=== PATIENT | male | born 1945 | race Caucasian/White ===

== ENCOUNTER 2017-10-30 23:34 | Inpatient (IN) | payer MEDICARE ==
[~2017-10-30] VITALS: Ht 188 cm; Wt 156.1 kg
[2017-10-30] MEDS ORDERED: ACETAMINOPHEN 1000 MG/100 ML IV STA (23:41)
[2017-10-30] MEDS ORDERED: CEFTRIAXONE SOD 1 GM VIAL IV STA (23:41)
[2017-10-30] MEDS ORDERED: SODIUM CHLORIDE 0.9% 1000ML 1,000 ML IV SCH (23:45)
[2017-10-30] MEDS ORDERED: SODIUM CHLORIDE 0.9% 1000ML 1,000 ML IV ONE (23:45)
[2017-10-31 00:09] LABS: INR 1.17; PROTHROMBIN TIME 15.5 seconds (11.9-14.5)
[2017-10-31 00:10] LABS: BASOPHILS % 0.2 % (0.0-1.0); HEMATOCRIT 37.4 % (38.2-49.6); HEMOGLOBIN 10.9 g/dL (14.0-18.0); LYMPHOCYTES # (AUTO) 0.2 (1.0-3.2); LYMPHOCYTES % 0.9 % (18.0-39.1); MEAN CORPUSCULAR HEMOGLOBIN 20.1 pg (28-32); MEAN CORPUSCULAR HGB CONC 29.1 g/dL (31-35); MONOCYTES # (AUTO) 0.4 (0.2-0.8); MONOCYTES % 1.7 % (4.4-11.3); NEUTROPHILS # (AUTO) 21.5 (2.1-6.9); NEUTROPHILS % 96.6 % (38.7-80.0); PLATELET COUNT 355 x10e3/uL (140-360); RED BLOOD COUNT 5.42 x10e6/uL (4.3-5.7); RED CELL DISTRIBUTION WIDTH 21.2 % (11.7-14.4)
[2017-10-31 00:14] LABS: BILIRUBIN,URINE NEGATIVE (NEGATIVE); KETONES,URINE NEGATIVE (NEGATIVE); LEUKOCYTE ESTERASE ,URINE TRACE (NEGATIVE); URINE UROBILINOGEN 1 mg/dL (0.2 - 1)
[2017-10-31 00:15] LABS: CLARITY,URINE SL CLOUDY (CLEAR); COLOR,URINE YELLOW (YELLOW); NITRITE,URINE POSITIVE (NEGATIVE); PROTEIN,URINE DIPSTICK 1+ (NEGATIVE)
[2017-10-31 00:19] LABS: ALANINE AMINOTRANSFERASE 289 IU/L (0-55); ALBUMIN 3.2 g/dL (3.5-5.0); ALBUMIN/GLOBULIN RATIO 0.6 (0.8-2.0); ALKALINE PHOSPHATASE 172 IU/L (40-150); ANION GAP 14.8 mmol/L (8-16); BLOOD UREA NITROGEN 11 mg/dL (7-26); BUN/CREATININE RATIO 12 (6-25); CALCIUM 9.1 mg/dL (8.4-10.2); CARBON DIOXIDE 23 mmol/L (22-29); CHLORIDE 104 mmol/L (98-107); CREATINE KINASE 94 IU/L (30-200); EST GLOMERULAR FILTRATION RATE > 60 ML/MIN (60-); GLUCOSE 197 mg/dL (74-118); POTASSIUM 3.8 mmol/L (3.5-5.1); SODIUM 138 mmol/L (136-145)
[2017-10-31 00:25] LABS: BACTERIA,URINE MANY /HPF; EPITHELIAL CELLS,URINE RARE /LPF
[2017-10-31 00:27] LABS: TROPONIN I 0.011 ng/mL (0-0.300)
--- NOTE | 2017-10-31 00:37 | Diagnostic Imaging Report ---
CHEST SINGLE (PORTABLE), 10/30/2017 11:41 PM Technique: CHEST SINGLE (PORTABLE) Comparison: None available. Clinical history: Fever Findings: Limited by portable technique and motion artifact. Slightly prominent cardiomediastinal silhouette, accentuated by technique. No consolidation, effusion or pneumothorax. Impression: Limited by portable technique and motion artifact. No definite acute abnormality. If there is ongoing clinical concern, consider repeat. Signed by: Dr Gladis Puentes MD on 10/31/2017 12:34 AM
[2017-10-31] MEDS ORDERED: METRONIDAZOLE 500MG/NS 100ML 100 ML IV STA (00:38)
[2017-10-31 00:51] LABS: AMYLASE 313 U/L (25-125); LIPASE 628 U/L (8-78)
[2017-10-31] MEDS ORDERED: PRADAXA150 MG PO (01:47)
[2017-10-31] MEDS ORDERED: MIRALAX17 GM PO (01:47)
[2017-10-31] MEDS ORDERED: PRENATAL LOW I1 EACH PO (01:48)
[2017-10-31] MEDS ORDERED: ONDANSETRON HCL INJ 2 MG/ML VIAL IV STA (01:56)
[2017-10-31] MEDS ORDERED: MORPHINE SULFATE 5 MG/ML VIAL IV ONE (02:00)
[2017-10-31] MEDS ORDERED: DIATRIZOATE MEGL/DIATRIZOA SOD 30 ML BTL PO ONE (02:08)
--- NOTE | 2017-10-31 02:26 | Diagnostic Imaging Report ---
EXAM: US GALLBLADDER DATE: 10/31/2017 12:00 AM INDICATION: , Right upper quadrant pain COMPARISON: None TECHNIQUE: Transverse and longitudinal metzger scale and color doppler sonographic images of the upper abdomen were obtained. FINDINGS: Note that the study was degraded due to overlying bowel gas and patient body habitus. LIVER 19.4 cm in the right midclavicular line. Normal echogenicity, normal contour, no masses. The left liver was poorly evaluated/visualized. GALLBLADDER Tumefactive sludge. No wall-thickening or pericholecystic fluid. Sonographic Harrison's sign not evaluated- patient was given pain medication. BILE DUCTS No intra nor extra-hepatic biliary dilation. Common bile duct measures 0.5 cm PANCREAS: Not visualized due to overlying bowel gas RIGHT KIDNEY: 11.8 cm Echogenicity: Normal Collecting System: No hydronephrosis Stones: None Cyst/Mass: None VESSELS: Aorta: Not visualized Inferior Vena Cava: Visualized portions are normal Main Portal Vein: 1.1 cm, hepatopetal flow. FREE FLUID: None IMPRESSION: Study degraded by overlying bowel gas and body habitus. 1. Gallbladder sludge without evidence of acute cholecystitis. 2. Hepatomegaly. Signed by: Dr Gladis Puentes MD on 10/31/2017 2:23 AM
[2017-10-31] MEDS ORDERED: SODIUM CHLORIDE 0.9% 1000ML 1,000 ML IV SCH (04:00)
[2017-10-31] MEDS ORDERED: SODIUM CHLORIDE 0.9% 1000ML 1,000 ML ONE (04:01)
--- NOTE | 2017-10-31 04:39 | Diagnostic Imaging Report ---
EXAM: CT ABDOMEN/PELVIS W DATE: 10/31/2017 12:37 AM INDICATION: \S\ABD PAIN, H/O COLON CA WITH ELEVATED LFTS \S\Y COMPARISON: None TECHNIQUE: The abdomen and pelvis were scanned using a multidetector helical scanner. Coronal and sagittal reformations were obtained. Routine protocol performed. IV Contrast: 100 ml Isovue 370 FINDINGS: Image quality is partially degraded by body habitus leading to noise/photon starvation. LOWER THORAX: Mild bibasilar atelectasis/scarring. LIVER/BILIARY: No masses. No ductal dilatation. GALLBLADDER: Gallstones or sludge. Subtle infiltration of the pericholecystic fat. SPLEEN: Unremarkable PANCREAS: Unremarkable ADRENALS: No nodules KIDNEYS: Symmetric perfusion. No enhancing masses. No hydronephrosis. GI TRACT: Postsurgical changes status post gastric bypass and partial right colonic resection. There is scattered diverticulosis. VESSELS: Infrarenal IVC filter is in place with slight extrusion of the lateral struts. Mild atherosclerotic changes. PERITONEUM/RETROPERITONEUM: No free air or fluid LYMPH NODES: No lymphadenopathy REPRODUCTIVE ORGANS/BLADDER: Bladder is decompressed with a Miner. SOFT TISSUES: Unremarkable BONES: Degenerative changes, which result in narrowing of the lower lumbar spinal canal. IMPRESSION: 1. Cholelithiasis/sludge with subtle infiltration of the pericholecystic fat, which could reflect early/mild acute cholecystitis in the proper clinical context. 2. Otherwise negative for acute abnormality. 3. Postsurgical changes status post presumed right hemicolectomy. No evidence of metastatic disease. Signed by: Dr Gladis Puentes MD on 10/31/2017 4:35 AM
[2017-10-31] MEDS ORDERED: CEFTRIAXONE SOD 1 GM VIAL IV SCH (05:45)
[2017-10-31] MEDS ORDERED: MORPHINE SULFATE 2 MG/ML SYR IV PRN (05:45)
[2017-10-31] MEDS: METRONIDAZOLE 500MG/NS 100ML IV SCH ×4 (06:00→17:59)
[2017-10-31] MEDS ORDERED: IOPAMIDOL 370 MG/ML 200 ML INFUS..BTL INJ ONE (06:02)
[2017-10-31] MEDS ORDERED: SODIUM CHLORIDE 0.9% 50ML 50 ML ONE (06:02)
[2017-10-31] MEDS ORDERED: ACETAMINOPHEN 1000 MG/100 ML IV PRN (06:15)
[2017-10-31 06:52] VITALS: BP 114/70
[2017-10-31 07:50] VITALS: BP 114/70
[2017-10-31 08:00] VITALS: BP 111/59
[2017-10-31] MEDS: SODIUM CHLORIDE 0.9% 1000ML 1,000 ML IV SCH ×2 (09:10→12:21)
[2017-10-31] MEDS: CEFTRIAXONE SOD 1 GM VIAL IV SCH (11:11)
[2017-10-31 12:00] VITALS: BP 115/61
[2017-10-31 16:00] VITALS: BP 124/62
--- NOTE | 2017-10-31 17:43 | Diagnostic Imaging Report ---
PROCEDURE: A single AP view of the chest. COMPARISON: Patients [facility], DX, CHEST SINGLE (PORTABLE), 10/31/2017, 0:13. INDICATIONS: PICC PLACEMENT FINDINGS: See impression. IMPRESSION: 1. interval placement of right-sided PICC line, with distal tip projecting in the proximal to mid SVC. 2. Otherwise, no significant interval change. Joel Arteaga M.D. Dictated by: Joel Arteaga M.D. on 10/31/2017 at 17:52 Electronically approved by: Joel Arteaga M.D. on 10/31/2017 at 17:52
[2017-10-31 20:00] VITALS: BP 143/65
[2017-11-01] VITALS: BP 128/60
[2017-11-01] MEDS: CEFTRIAXONE SOD 1 GM VIAL IV SCH ×2 (01:00→12:31)
[2017-11-01] MEDS: SODIUM CHLORIDE 0.9% 1000ML 1,000 ML IV SCH ×4 (01:41→22:30)
[2017-11-01] MEDS: METRONIDAZOLE 500MG/NS 100ML IV SCH ×4 (01:45→17:02)
[2017-11-01 07:27] LABS: BASOPHILS % 0.2 % (0.0-1.0); EOSINOPHILS # (AUTO) 0.1 (0.0-0.4); HEMATOCRIT 29.2 % (38.2-49.6); HEMOGLOBIN 8.7 g/dL (14.0-18.0); LYMPHOCYTES # (AUTO) 0.5 (1.0-3.2); MEAN CORPUSCULAR HEMOGLOBIN 20.4 pg (28-32); MEAN CORPUSCULAR HGB CONC 29.8 g/dL (31-35); MEAN CORPUSCULAR VOLUME 68.4 fL (81-99); MONOCYTES # (AUTO) 0.5 (0.2-0.8); MONOCYTES % 5.4 % (4.4-11.3); PLATELET COUNT 245 x10e3/uL (140-360); RED BLOOD COUNT 4.27 x10e6/uL (4.3-5.7); RED CELL DISTRIBUTION WIDTH 21.2 % (11.7-14.4)
[2017-11-01 07:44] LABS: ALANINE AMINOTRANSFERASE 201 IU/L (0-55); ALBUMIN 2.4 g/dL (3.5-5.0); ALBUMIN/GLOBULIN RATIO 0.6 (0.8-2.0); ALKALINE PHOSPHATASE 137 IU/L (40-150); AMYLASE 40 U/L (25-125); ANION GAP 9.3 mmol/L (8-16); BLOOD UREA NITROGEN 13 mg/dL (7-26); BUN/CREATININE RATIO 17 (6-25); CALCIUM 7.8 mg/dL (8.4-10.2); CARBON DIOXIDE 24 mmol/L (22-29); CHLORIDE 108 mmol/L (98-107); CREATININE, SERUM 0.78 mg/dL (0.72-1.25); EST GLOMERULAR FILTRATION RATE > 60 ML/MIN (60-); GLUCOSE 94 mg/dL (74-118); LIPASE 18 U/L (8-78); POTASSIUM 3.3 mmol/L (3.5-5.1); SODIUM 138 mmol/L (136-145)
[2017-11-01 08:00] VITALS: BP 162/75
[2017-11-01 10:16] VITALS: BP 162/75
[2017-11-01] MEDS ORDERED: POTASSIUM CHLORIDE 20MEQ/100ML 100 ML IV STA (10:58)
[2017-11-01] MEDS: MORPHINE SULFATE 5 MG/ML VIAL IV PRN (11:10)
--- NOTE | 2017-11-01 12:50 | Diagnostic Imaging Report ---
HIDA Scan with Morphine Augmentation Clinical information: RUQ pain; cholelithiasis; hepatomegaly Report: Following the administration of 7.0 of Tc-99m mebrofenin, dynamic images of the abdomen in the anterior projection were obtained through 60 minutes. Additional static image was obtained at 90 minutes. Morphine sulfate 4 mg was administered via slow IV push and additional images were obtained through 30 minutes. Perfusion to the liver is normal. Extraction of tracer by the liver parenchyma is normal. Tracer appears promptly within the biliary tract. Tracer is seen within the small bowel by 55 minutes. Proximal portion of the cystic duct begins to fill by 20 minutes. The gallbladder does not fill during the initial 60 minutes of dynamic imaging or at 90 minutes. Following administration of morphine, the gallbladder also does not fill. Impression: 1. Absence of filling of the gallbladder, even following administration of morphine, is compatible with the diagnosis of acute cystic duct obstruction/acute cholecystitis. A portion of the cystic duct fills but following morphine, the gallbladder does not fill. Signed by: Dr. Meli Sosa M.D. on 11/01/2017 12:46 PM
[2017-11-01 13:00] VITALS: BP 160/72
[2017-11-01 16:00] VITALS: BP 141/70
[2017-11-02] VITALS (9 sets, daily range): BP systolic 135–180; BP diastolic 66–88
[2017-11-02] MEDS: CEFTRIAXONE SOD 1 GM VIAL IV SCH ×2 (00:20→12:10)
[2017-11-02] MEDS: METRONIDAZOLE 500MG/NS 100ML IV SCH ×4 (00:20→17:51)
[2017-11-02] MEDS: SODIUM CHLORIDE 0.9% 1000ML 1,000 ML IV SCH ×3 (04:55→20:00)
[2017-11-02 06:46] LABS: BASOPHILS % 0.4 % (0.0-1.0); EOSINOPHILS # (AUTO) 0.1 (0.0-0.4); EOSINOPHILS % 1.9 % (0.0-6.0); HEMATOCRIT 29.5 % (38.2-49.6); HEMOGLOBIN 8.9 g/dL (14.0-18.0); LYMPHOCYTES # (AUTO) 0.8 (1.0-3.2); LYMPHOCYTES % 11.1 % (18.0-39.1); MEAN CORPUSCULAR HEMOGLOBIN 20.5 pg (28-32); MEAN CORPUSCULAR HGB CONC 30.2 g/dL (31-35); MEAN CORPUSCULAR VOLUME 67.8 fL (81-99); MONOCYTES # (AUTO) 0.5 (0.2-0.8); MONOCYTES % 7.8 % (4.4-11.3); NEUTROPHILS # (AUTO) 5.3 (2.1-6.9); NEUTROPHILS % 78.2 % (38.7-80.0); PLATELET COUNT 250 x10e3/uL (140-360); RED BLOOD COUNT 4.35 x10e6/uL (4.3-5.7); RED CELL DISTRIBUTION WIDTH 21.1 % (11.7-14.4)
[2017-11-02 07:08] LABS: ANION GAP 11.7 mmol/L (8-16); BLOOD UREA NITROGEN 9 mg/dL (7-26); BUN/CREATININE RATIO 13 (6-25); CALCIUM 8.3 mg/dL (8.4-10.2); CARBON DIOXIDE 22 mmol/L (22-29); CHLORIDE 106 mmol/L (98-107); CREATININE, SERUM 0.68 mg/dL (0.72-1.25); EST GLOMERULAR FILTRATION RATE > 60 ML/MIN (60-); GLUCOSE 91 mg/dL (74-118); POTASSIUM 3.7 mmol/L (3.5-5.1); SODIUM 136 mmol/L (136-145)
[2017-11-02] MEDS ORDERED: BUPIVACAINE 0.25% 30ML SDV INJ ONE (13:27)
[2017-11-02] MEDS ORDERED: ACETAMINOPHEN 1000 MG/100 ML IV PRN (16:30)
--- NOTE | 2017-11-02 17:09 | Operative Report ---
DATE OF PROCEDURE: November 02, 2017 PREOPERATIVE DIAGNOSIS: Cholecystitis and cholelithiasis. POSTOPERATIVE DIAGNOSIS: Cholecystitis and cholelithiasis. OPERATION PERFORMED: Laparoscopic cholecystectomy. ANESTHESIA: General. COMPLICATIONS: None. ESTIMATED BLOOD LOSS: Minimal. DESCRIPTION OF PROCEDURE: With the patient lying in bed in the supine position under good general endotracheal anesthesia, the abdomen was prepped with Betadine solution and draped in the usual manner. A Veress needle was introduced into the umbilicus, and pneumoperitoneum was established without any difficulty. An 11 mm trocar was placed just above the umbilicus, and a 10 mm video laparoscope was placed into the intra-abdominal cavity. Three 5 mm trocars were placed in the right subcostal region, and an extra 5 mm trocar was placed in the left upper abdomen to be able to retract a very redundant transverse colon. Video laparoscopy at this point revealed a gallbladder that was boggy, very floppy, thick-walled. There was some fatty infiltration of the liver. The rest of the abdominal exploration was within normal limits. The peritoneum overlying the neck of the gallbladder was then opened, and the cystic duct was identified. Cystic duct was followed to its junction with the common duct. The cystic duct then circumferentially dissected away from the common duct, doubly clipped and divided. The cystic artery was similarly doubly clipped and divided. The gallbladder was then slowly and carefully taken off of the liver bed using the cautery scissors, and perfect hemostasis was ascertained. The gallbladder was placed in a pouch and removed through the umbilicus without any difficulty. Video laparoscopy was then again carried out. The liver bed was found to be perfectly dry. All of the excess fluid was aspirated. The pneumoperitoneum was evacuated, and all the trocars were removed under direct vision. The midline fascia at the umbilicus was then closed with a [id number]-[id number] of 0 Vicryl. All layers were infiltrated on the way out with solution of 1/4 percent Marcaine. Subcutaneous tissue was approximated with 3-0 Vicryl, and the skin was closed with subcuticular 5-0 Vicryl. Benzoin, Steri-Strips and Band-Aids were applied. The sponge, lap and needle count was correct. The patient tolerated the procedure well and returned to the recovery room in stable condition. Job#: [id number] EV
[2017-11-02] MEDS: PANTOPRAZOLE 40 MG 10ML VIAL IV SCH (17:51)
[2017-11-02] MEDS ORDERED: SUCCINYLCHOLINE 200 MG/10 ML SYR ONE (18:00)
[2017-11-02] MEDS ORDERED: PROPOFOL IV EMULSION 10 MG/ML 20 ML VIAL ONE (18:00)
[2017-11-02] MEDS ORDERED: DEXAMETHASONE SOD PHOS INJ 4 MG/ML VIAL ONE (18:00)
[2017-11-02] MEDS ORDERED: ONDANSETRON HCL INJ 2 MG/ML VIAL ONE (18:00)
[2017-11-02] MEDS ORDERED: GLYCOPYRROLATE INJ 1MG/ 5 ML SYR ONE (18:00)
[2017-11-02] MEDS ORDERED: NEOSTIGMINE 5 MG/5ML SYR ONE (18:00)
[2017-11-02] MEDS ORDERED: LIDOCAINE HCL 2% LOCAL INJ 5 ML SDV VIAL INJ ONE (18:00)
[2017-11-02] MEDS ORDERED: LABETALOL HCL IV 5 MG/ML 20ML MDV ONE (18:00)
[2017-11-02] MEDS ORDERED: SEVOFLURANE INHAL SOLN 250 ML PEN BTL ONE (18:00)
[2017-11-02] MEDS ORDERED: PHENYLEPHRINE HCL 1% 10 MG/ML VIAL ONE (18:00)
[2017-11-02] MEDS ORDERED: ROCURONIUM BROMIDE 10 MG/ML 5ML VIAL ONE (18:00)
[2017-11-02] MEDS ORDERED: MIDAZOLAM HCL 2 MG/2 ML VIAL ONE (18:44)
[2017-11-02] MEDS ORDERED: FENTANYL CITRATE/PF 100MCG/2 ML INJ ONE (18:44)
[2017-11-02] MEDS: NYSTATIN 15 GM POWDER UD BTL TOP SCH (21:30)
[2017-11-02] MEDS: MORPHINE SULFATE 5 MG/ML VIAL IV PRN (21:31)
[2017-11-02] MEDS: ONDANSETRON HCL INJ 2 MG/ML VIAL IV PRN (21:31)
[2017-11-03] VITALS (8 sets, daily range): BP systolic 137–166; BP diastolic 66–86
[2017-11-03] MEDS: CEFTRIAXONE SOD 1 GM VIAL IV SCH ×2 (00:27→12:57)
[2017-11-03] MEDS: METRONIDAZOLE 500MG/NS 100ML IV SCH ×4 (00:27→18:11)
[2017-11-03] MEDS: SODIUM CHLORIDE 0.9% 1000ML 1,000 ML IV SCH ×2 (01:42→10:57)
[2017-11-03] MEDS: ONDANSETRON HCL INJ 2 MG/ML VIAL IV PRN ×2 (06:29→19:19)
[2017-11-03] MEDS: MORPHINE SULFATE 5 MG/ML VIAL IV PRN ×2 (06:30→19:19)
[2017-11-03 06:45] LABS: BASOPHILS % 0.3 % (0.0-1.0); EOSINOPHILS # (AUTO) 0.1 (0.0-0.4); EOSINOPHILS % 0.9 % (0.0-6.0); HEMATOCRIT 29.8 % (38.2-49.6); HEMOGLOBIN 8.8 g/dL (14.0-18.0); LYMPHOCYTES # (AUTO) 0.9 (1.0-3.2); LYMPHOCYTES % 10.9 % (18.0-39.1); MEAN CORPUSCULAR HEMOGLOBIN 20.2 pg (28-32); MEAN CORPUSCULAR HGB CONC 29.5 g/dL (31-35); MEAN CORPUSCULAR VOLUME 68.5 fL (81-99); MONOCYTES # (AUTO) 0.6 (0.2-0.8); NEUTROPHILS # (AUTO) 6.3 (2.1-6.9); NEUTROPHILS % 80.5 % (38.7-80.0); PLATELET COUNT 242 x10e3/uL (140-360); RED BLOOD COUNT 4.35 x10e6/uL (4.3-5.7); RED CELL DISTRIBUTION WIDTH 21.1 % (11.7-14.4)
[2017-11-03 07:18] LABS: ALANINE AMINOTRANSFERASE 102 IU/L (0-55); ALBUMIN 2.1 g/dL (3.5-5.0); ALBUMIN/GLOBULIN RATIO 0.5 (0.8-2.0); ALKALINE PHOSPHATASE 144 IU/L (40-150); ANION GAP 10.3 mmol/L (8-16); BLOOD UREA NITROGEN 7 mg/dL (7-26); BUN/CREATININE RATIO 10 (6-25); CALCIUM 7.4 mg/dL (8.4-10.2); CARBON DIOXIDE 22 mmol/L (22-29); CHLORIDE 109 mmol/L (98-107); CREATININE, SERUM 0.72 mg/dL (0.72-1.25); EST GLOMERULAR FILTRATION RATE > 60 ML/MIN (60-); GLUCOSE 105 mg/dL (74-118); POTASSIUM 3.3 mmol/L (3.5-5.1); SODIUM 138 mmol/L (136-145)
[2017-11-03] MEDS: NYSTATIN 15 GM POWDER UD BTL TOP SCH ×3 (10:57→20:00)
[2017-11-03] MEDS ORDERED: POTASSIUM CHLORIDE 20 MEQ TAB CR PO STA (15:49)
[2017-11-03] MEDS: PANTOPRAZOLE 40 MG 10ML VIAL IV SCH (16:08)
[2017-11-03] MEDS ORDERED: POTASSIUM CHLORIDE 20 MEQ TAB CR PO ONE (16:30)
[2017-11-04] VITALS (9 sets, daily range): BP systolic 111–174; BP diastolic 67–95
[2017-11-04] MEDS: METRONIDAZOLE 500MG/NS 100ML IV SCH ×4 (00:31→17:59)
[2017-11-04] MEDS: CEFTRIAXONE SOD 1 GM VIAL IV SCH ×2 (00:31→12:30)
[2017-11-04 07:03] LABS: ALANINE AMINOTRANSFERASE 87 IU/L (0-55); ALBUMIN 2.2 g/dL (3.5-5.0); ALBUMIN/GLOBULIN RATIO 0.5 (0.8-2.0); ALKALINE PHOSPHATASE 141 IU/L (40-150); ANION GAP 8.6 mmol/L (8-16); BLOOD UREA NITROGEN 6 mg/dL (7-26); BUN/CREATININE RATIO 8 (6-25); CARBON DIOXIDE 25 mmol/L (22-29); CHLORIDE 104 mmol/L (98-107); CREATININE, SERUM 0.73 mg/dL (0.72-1.25); EST GLOMERULAR FILTRATION RATE > 60 ML/MIN (60-); GLUCOSE 108 mg/dL (74-118); POTASSIUM 3.6 mmol/L (3.5-5.1); SODIUM 134 mmol/L (136-145)
[2017-11-04 07:28] LABS: BASOPHILS % 0.6 % (0.0-1.0); EOSINOPHILS # (AUTO) 0.3 (0.0-0.4); HEMATOCRIT 29.9 % (38.2-49.6); HEMOGLOBIN 8.8 g/dL (14.0-18.0); LYMPHOCYTES % 13.1 % (18.0-39.1); MEAN CORPUSCULAR HEMOGLOBIN 20.3 pg (28-32); MEAN CORPUSCULAR HGB CONC 29.4 g/dL (31-35); MEAN CORPUSCULAR VOLUME 69.1 fL (81-99); MONOCYTES # (AUTO) 0.7 (0.2-0.8); MONOCYTES % 9.4 % (4.4-11.3); NEUTROPHILS # (AUTO) 5.3 (2.1-6.9); NEUTROPHILS % 72.3 % (38.7-80.0); PLATELET COUNT 216 x10e3/uL (140-360); RED BLOOD COUNT 4.33 x10e6/uL (4.3-5.7); RED CELL DISTRIBUTION WIDTH 21.1 % (11.7-14.4)
[2017-11-04] MEDS: NYSTATIN 15 GM POWDER UD BTL TOP SCH ×2 (09:16→18:39)
[2017-11-04] MEDS: MORPHINE SULFATE 5 MG/ML VIAL IV PRN (13:07)
[2017-11-04] MEDS: ONDANSETRON HCL INJ 2 MG/ML VIAL IV PRN (13:07)
[2017-11-04] MEDS: PANTOPRAZOLE 40 MG 10ML VIAL IV SCH (17:59)
[2017-11-05] MEDS: METRONIDAZOLE 500MG/NS 100ML IV SCH ×5 (00:12→23:15)
[2017-11-05] MEDS: CLONIDINE HCL 0.2 MG TAB PO PRN ×2 (00:45→17:05)
[2017-11-05 01:44] VITALS: BP 178/96
[2017-11-05 05:16] VITALS: BP 145/87
[2017-11-05 06:49] LABS: ALANINE AMINOTRANSFERASE 62 IU/L (0-55); ALBUMIN/GLOBULIN RATIO 0.5 (0.8-2.0); ALKALINE PHOSPHATASE 116 IU/L (40-150); ANION GAP 10.8 mmol/L (8-16); BLOOD UREA NITROGEN 7 mg/dL (7-26); BUN/CREATININE RATIO 10 (6-25); CALCIUM 8.3 mg/dL (8.4-10.2); CARBON DIOXIDE 27 mmol/L (22-29); CHLORIDE 105 mmol/L (98-107); CREATININE, SERUM 0.73 mg/dL (0.72-1.25); EST GLOMERULAR FILTRATION RATE > 60 ML/MIN (60-); GLUCOSE 108 mg/dL (74-118); POTASSIUM 3.8 mmol/L (3.5-5.1); SODIUM 139 mmol/L (136-145)
[2017-11-05 08:00] VITALS: BP 146/89
[2017-11-05] MEDS: NYSTATIN 15 GM POWDER UD BTL TOP SCH ×2 (08:28→15:40)
[2017-11-05 12:00] VITALS: BP 149/95
[2017-11-05] MEDS: CEFTRIAXONE SOD 1 GM VIAL IV SCH ×3 (12:30→23:15)
[2017-11-05] MEDS: PANTOPRAZOLE 40 MG 10ML VIAL IV SCH (15:40)
[2017-11-05 16:00] VITALS: BP 175/96
[2017-11-05] MEDS: MORPHINE SULFATE 5 MG/ML VIAL IV PRN (22:57)
[2017-11-06] MEDS: METRONIDAZOLE 500MG/NS 100ML IV SCH ×3 (05:36→17:10)
[2017-11-06 06:01] VITALS: BP 175/96
[2017-11-06 08:15] VITALS: BP 131/82
[2017-11-06] MEDS: NYSTATIN 15 GM POWDER UD BTL TOP SCH ×2 (09:31→16:42)
[2017-11-06] MEDS: MORPHINE SULFATE 5 MG/ML VIAL IV PRN (10:00)
[2017-11-06 12:00] VITALS: BP 171/89
[2017-11-06] MEDS: CEFTRIAXONE SOD 1 GM VIAL IV SCH (12:30)
[2017-11-06 16:26] VITALS: BP 164/66
[2017-11-06] MEDS: PANTOPRAZOLE 40 MG 10ML VIAL IV SCH (16:42)
[2017-11-06] MEDS: CLONIDINE HCL 0.2 MG TAB PO PRN (16:43)
[2017-11-06 20:00] VITALS: BP 133/79
[2017-11-07] VITALS (7 sets, daily range): BP systolic 133–179; BP diastolic 78–86
[2017-11-07] MEDS: CEFTRIAXONE SOD 1 GM VIAL IV SCH ×3 (00:18→23:29)
[2017-11-07] MEDS: METRONIDAZOLE 500MG/NS 100ML IV SCH ×5 (00:18→23:29)
[2017-11-07] MEDS: MORPHINE SULFATE 5 MG/ML VIAL IV PRN (00:30)
[2017-11-07] MEDS: NYSTATIN 15 GM POWDER UD BTL TOP SCH ×2 (08:56→16:49)
[2017-11-07] MEDS: PANTOPRAZOLE 40 MG 10ML VIAL IV SCH (16:27)
[2017-11-07] MEDS: CLONIDINE HCL 0.2 MG TAB PO PRN (23:31)
[2017-11-08] VITALS (8 sets, daily range): BP systolic 125–178; BP diastolic 66–92
[2017-11-08] MEDS: CLONIDINE HCL 0.2 MG TAB PO PRN (05:32)
[2017-11-08] MEDS: METRONIDAZOLE 500MG/NS 100ML IV SCH ×3 (06:03→17:24)
[2017-11-08] MEDS: NYSTATIN 15 GM POWDER UD BTL TOP SCH ×2 (09:49→17:40)
[2017-11-08] MEDS: CEFTRIAXONE SOD 1 GM VIAL IV SCH (13:33)
[2017-11-08] MEDS: PANTOPRAZOLE 40 MG 10ML VIAL IV SCH (17:24)
[2017-11-09] MEDS: METRONIDAZOLE 500MG/NS 100ML IV SCH ×3 (00:28→13:00)
[2017-11-09] MEDS: MORPHINE SULFATE 5 MG/ML VIAL IV PRN ×2 (00:28→07:05)
[2017-11-09] MEDS: CEFTRIAXONE SOD 1 GM VIAL IV SCH ×2 (00:28→16:05)
[2017-11-09 00:31] VITALS: BP 142/82
[2017-11-09 05:00] VITALS: BP 170/80
[2017-11-09 08:00] VITALS: BP 166/87
[2017-11-09] MEDS: NYSTATIN 15 GM POWDER UD BTL TOP SCH (09:24)
[2017-11-09 12:00] VITALS: BP 157/95
[2017-11-09 16:00] VITALS: BP 170/96
== END 2017-11-09 17:41 | DRG 417 ==
LOC: ER 23:34 → MED/SURG2 10-31 05:46
PROC: 02HV33Z Insertion of Infusion Device into Superior Vena Cava, Percutaneous Approach (ICD-10-PCS; 2017-10-31)
PROC: 0FT44ZZ Resection of Gallbladder, Percutaneous Endoscopic Approach (ICD-10-PCS; principal; 2017-11-02 12:30)
DX: K80.12 Calculus of gallbladder with acute and chronic cholecystitis without obstruction (principal); K85.90 Acute pancreatitis without necrosis or infection, unspecified; D64.9 Anemia, unspecified; Z68.41 Body mass index [BMI] 40.0-44.9, adult; I10 Essential (primary) hypertension; Z86.711 Personal history of pulmonary embolism; Z79.01 Long term (current) use of anticoagulants; Z86.718 Personal history of other venous thrombosis and embolism; E66.01 Morbid (severe) obesity due to excess calories
CPT/HCPCS: 36415; 36569; 71045; 74177; 76705; 78227; 80048; 80053; 81001; 82150; 82550; 82553; 83605; 83690; 83735; 84484; 85025; 85610; 85730; 87086; 87186; 87400; 88304; 96360; 96365; 97139; 99284; A9537; C1766; J0696; J1100; J2001; J2250; J2270; J2370; J2405; J3480; J7030; Q9967

== ENCOUNTER → 2017-11-16 | Outpatient (CLI) | payer OTHER ==
[~2017-11-16] MED LIST: MIRALAX17 GM PO; PRADAXA150 MG PO; PRENATAL LOW I1 EACH PO
[2017-11-16 14:58] LABS: ANION GAP 13.5 mmol/L (8-16); BLOOD UREA NITROGEN 11 mg/dL (7-26); BUN/CREATININE RATIO 12 (6-25); CARBON DIOXIDE 23 mmol/L (22-29); CHLORIDE 107 mmol/L (98-107); CREATININE, SERUM 0.89 mg/dL (0.72-1.25); EST GLOMERULAR FILTRATION RATE > 60 ML/MIN (60-); GLUCOSE 119 mg/dL (74-118); POTASSIUM 3.5 mmol/L (3.5-5.1); SODIUM 140 mmol/L (136-145)
[2017-11-16 15:00] LABS: BASOPHILS # (AUTO) 0.1 (0.0-0.1); BASOPHILS % 1.2 % (0.0-1.0); EOSINOPHILS # (AUTO) 0.2 (0.0-0.4); EOSINOPHILS % 3.7 % (0.0-6.0); HEMATOCRIT 33.4 % (38.2-49.6); HEMOGLOBIN 9.9 g/dL (14.0-18.0); LYMPHOCYTES # (AUTO) 1.4 (1.0-3.2); LYMPHOCYTES % 25.3 % (18.0-39.1); MEAN CORPUSCULAR HEMOGLOBIN 20.1 pg (28-32); MEAN CORPUSCULAR HGB CONC 29.6 g/dL (31-35); MEAN CORPUSCULAR VOLUME 67.9 fL (81-99); MONOCYTES # (AUTO) 0.4 (0.2-0.8); MONOCYTES % 7.6 % (4.4-11.3); NEUTROPHILS # (AUTO) 3.5 (2.1-6.9); NEUTROPHILS % 61.8 % (38.7-80.0); PLATELET COUNT 375 x10e3/uL (140-360); RED BLOOD COUNT 4.92 x10e6/uL (4.3-5.7); RED CELL DISTRIBUTION WIDTH 20.9 % (11.7-14.4)
== END ==
LOC: NPA 11:22
DX: Z02.89 Encounter for other administrative examinations (principal)
CPT/HCPCS: 36415; 80048; 85025

== ENCOUNTER 2018-07-11 15:59 | Inpatient (IN) | payer MEDICARE ==
[~2018-07-11] VITALS: Ht 188 cm; Wt 153.9 kg
[2018-07-11] MEDS ORDERED: ASPIRIN 81 MG CHEW TAB PO ONE ×2 (16:30→22:30)
[2018-07-11 16:55] LABS: BASOPHILS # (AUTO) 0.1 (0.0-0.1); BASOPHILS % 0.7 % (0.0-1.0); EOSINOPHILS # (AUTO) 0.3 (0.0-0.4); EOSINOPHILS % 2.2 % (0.0-6.0); HEMATOCRIT 34.3 % (38.2-49.6); HEMOGLOBIN 10.1 g/dL (14.0-18.0); LYMPHOCYTES # (AUTO) 1.5 (1.0-3.2); MEAN CORPUSCULAR HGB CONC 29.4 g/dL (31-35); MEAN CORPUSCULAR VOLUME 64.5 fL (81-99); MONOCYTES # (AUTO) 0.7 (0.2-0.8); MONOCYTES % 5.8 % (4.4-11.3); NEUTROPHILS # (AUTO) 9.5 (2.1-6.9); NEUTROPHILS % 78.7 % (38.7-80.0); PLATELET COUNT 382 x10e3/uL (140-360); RED BLOOD COUNT 5.32 x10e6/uL (4.3-5.7); RED CELL DISTRIBUTION WIDTH 21.2 % (11.7-14.4)
[2018-07-11 17:07] LABS: INR 1.11; PROTHROMBIN TIME 15.3 seconds (11.9-14.5)
[2018-07-11 17:08] LABS: PARTIAL THROMBOPLASTIN TIME 29.8 seconds (23.8-35.5)
[2018-07-11 17:17] LABS: ALANINE AMINOTRANSFERASE 20 IU/L (0-55); ALBUMIN/GLOBULIN RATIO 0.6 (0.8-2.0); ALKALINE PHOSPHATASE 115 IU/L (40-150); ANION GAP 14.7 mmol/L (8-16); BLOOD UREA NITROGEN 11 mg/dL (7-26); BUN/CREATININE RATIO 11 (6-25); CALCIUM 9.1 mg/dL (8.4-10.2); CARBON DIOXIDE 20 mmol/L (22-29); CHLORIDE 109 mmol/L (98-107); CREATINE KINASE 48 IU/L (30-200); CREATININE, SERUM 1.03 mg/dL (0.72-1.25); EST GLOMERULAR FILTRATION RATE > 60 ML/MIN (60-); GLUCOSE 108 mg/dL (74-118); LIPASE 18 U/L (8-78); POTASSIUM 3.7 mmol/L (3.5-5.1); SODIUM 140 mmol/L (136-145)
[2018-07-11] MEDS ORDERED: IOPAMIDOL 370 MG/ML 200 ML INFUS..BTL INJ ONE (18:23)
[2018-07-11] MEDS ORDERED: SODIUM CHLORIDE 0.9% 50ML 50 ML ONE (18:23)
--- NOTE | 2018-07-11 18:40 | Diagnostic Imaging Report ---
EXAM: CT Chest WITH contrast (PE Protocol) INDICATION: Shortness of breath. \S\sob PE COMPARISON: None TECHNIQUE: Chest was scanned utilizing a multidetector helical scanner from the lung apex through the level of the diaphragm after administration of IV contrast. Thin section reconstructions were obtained with special concentration on the pulmonary arteries. Coronal and sagittal reformations were obtained. Pulmonary embolism protocol was performed. IV CONTRAST: 100 mL of Isovue 370 COMPLICATIONS: None RADIATION DOSE: Total DLP: 691.76 mGy*cm Estimated effective dose: (DLP x 0.014 x size factor) mSv CTDIvol has been reviewed. It is below the limits set by the Radiation Protocol Committee (RPC). FINDINGS: LINES/ TUBES: None. LUNGS AND AIRWAYS: Large pulmonary emboli burden involving bilateral pulmonary arteries with extension into the respective segmental and subsegmental branches. Mild bilateral perihilar bronchiectasis with mild bronchial wall thickening. Scattered nonspecific groundglass opacities in the lung bases, possibly related to combination of atelectasis and air trapping. Mild focal wedge-shaped atelectasis in the left lower lobe (series 3 image 87). This may represent atelectasis versus infarct. Calcified granuloma in the lateral right upper lobe (series 3 image 46). PLEURA: The pleural spaces are clear. HEART AND MEDIASTINUM: The thyroid gland is normal. No mediastinal, hilar or axillary lymphadenopathy. The heart is normal in size. There is no pericardial effusion. There are moderate atherosclerotic calcifications in the aorta and coronary arteries. Main pulmonary artery measures 4.4 cm in diameter and the ascending aorta measures 4.2 cm. No enlargement of the right atrium or ventricle. Interventricular septum is in midline. No evidence of heart strain at this time. 1.2 x 2.3 cm soft tissue density in the left anterior neck, which is partially visualized but may represent a submandibular lymph node versus submandibular gland. UPPER ABDOMEN: Postoperative changes of Cynthia-en-Y gastric bypass with a small sliding hiatal hernia. Splenic calcified granulomas. Cholecystectomy. BONES: There are degenerative changes in the thoracic spine. SOFT TISSUES: Unremarkable. IMPRESSION: 1. Large pulmonary emboli burden in bilateral pulmonary arteries. 2. No evidence of heart strain at this time. 3. Wedge-shaped atelectasis versus infarct in the left lower lobe. 4. Bronchiectasis, mild bronchial wall thickening, and likely small airway disease in the lungs. Results were discussed with ELISA Rene by Dr. Roberto on 07/11/2018 at 6:26 PM. Signed by: Dr. Jed Roberto M.D. on 07/11/2018 6:36 PM
[2018-07-11 23:39] VITALS: BP 158/88
[2018-07-12] VITALS (7 sets, daily range): BP systolic 148–172; BP diastolic 71–89
[2018-07-12] MEDS ORDERED: ENOXAPARIN SODIUM INJ 100 MG/ML SYR SC SCH ×2 (09:00→21:00)
[2018-07-12] MEDS: FAMOTIDINE 20 MG TAB PO SCH (17:35)
[2018-07-12] MEDS: DIPHENHYDRAMINE HCL 25 MG CAP PO PRN (17:35)
[2018-07-12] MEDS: FONDAPARINUX SODIUM 10 MG/0.8 ML SYR SQ SCH (17:35)
--- NOTE | 2018-07-12 17:39 | Consultation ---
DATE OF CONSULTATION: PULMONARY CONSULTATION Patient of Dr. Judd Mello. HISTORY: Charming, but unfortunate 72-year-old woman, admitted from Dr. Mello's office with shortness of breath and fear of recurrent pulmonary embolus despite Pradaxa 150 b.i.d. In his record, HE HAS ALLERGIES TO PENICILLIN, SULFA, CODEINE, AND HE BELIEVES HEPARIN. Takes Pradaxa at home. He has a history of pulmonary emboli approximately 6 months ago, history of colon resection, apparently presented with massive lower GI bleed. Has had colon cancer, had gastric bypass 9 years ago, 130-lb weight loss, history of cholecystectomy. 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 FAMILY HISTORY: Positive for coronary artery disease. He was born in [place]. PHYSICAL EXAMINATION GENERAL: Tall, white male, no acute distress, he looks stated age. HEENT: Head normocephalic, atraumatic. EYES: Extraocular movements intact. LUNGS: Diminished breath sounds. HEART: Regular rhythm. ABDOMEN: Surgical scars. EXTREMITIES: Not edematous. ASSESSMENT : Recurrent pulmonary embolus despite Pradaxa. Direct thrombin inhibitor, Arixtra. Check echocardiogram. Check venous Doppler. HIT panel due to his history and thrombophilia panel. Patient will require lifelong anticoagulation as this is a recurrence and apparently not provoked. He does use a walker. He is anemic. Also check a CEA, venous Doppler, echocardiogram will require careful observation. Consider t-PA if patient becomes hypotensive. Will request echo and venous Doppler. Plan is for Coumadin in view of the failure of Pradaxa. Thank you for this kind referral. Job#: [id number]
[2018-07-12 18:12] LABS: % IRON SATURATION 4 % (15-50); IRON 17 ug/dL (65-175); TOTAL IRON BINDING CAPACITY 391 ug/dL (261-478); TRANSFERRIN 279 mg/dL (174-364)
[2018-07-13 00:47] VITALS: BP 156/83
[2018-07-13 01:31] LABS: BACTERIA,URINE MANY /HPF; BILIRUBIN,URINE NEGATIVE (NEGATIVE); CLARITY,URINE SL CLOUDY (CLEAR); COLOR,URINE YELLOW (YELLOW); KETONES,URINE TRACE (NEGATIVE); LEUKOCYTE ESTERASE ,URINE 2+ (NEGATIVE); NITRITE,URINE POSITIVE (NEGATIVE); PROTEIN,URINE DIPSTICK TRACE (NEGATIVE); RBC,URINE 0-5 /HPF (0-5); URINE UROBILINOGEN 0.2 mg/dL (0.2 - 1); WBC,URINE (MAN) 21-50 /HPF (0-5)
[2018-07-13 06:26] LABS: BASOPHILS # (AUTO) 0.1 (0.0-0.1); BASOPHILS % 0.6 % (0.0-1.0); EOSINOPHILS # (AUTO) 0.4 (0.0-0.4); EOSINOPHILS % 4.4 % (0.0-6.0); HEMATOCRIT 34.7 % (38.2-49.6); HEMOGLOBIN 9.5 g/dL (14.0-18.0); LYMPHOCYTES # (AUTO) 1.4 (1.0-3.2); MEAN CORPUSCULAR HEMOGLOBIN 18.6 pg (28-32); MEAN CORPUSCULAR HGB CONC 27.4 g/dL (31-35); MEAN CORPUSCULAR VOLUME 67.8 fL (81-99); MONOCYTES # (AUTO) 0.5 (0.2-0.8); MONOCYTES % 5.7 % (4.4-11.3); NEUTROPHILS # (AUTO) 5.9 (2.1-6.9); NEUTROPHILS % 71.7 % (38.7-80.0); PLATELET COUNT 413 x10e3/uL (140-360); RED BLOOD COUNT 5.12 x10e6/uL (4.3-5.7); RED CELL DISTRIBUTION WIDTH 21.3 % (11.7-14.4)
[2018-07-13 06:39] LABS: INR 1.18
[2018-07-13 06:42] LABS: ANION GAP 14.1 mmol/L (8-16); BLOOD UREA NITROGEN 12 mg/dL (7-26); BUN/CREATININE RATIO 13 (6-25); CALCIUM 9.4 mg/dL (8.4-10.2); CARBON DIOXIDE 20 mmol/L (22-29); CHLORIDE 108 mmol/L (98-107); CREATININE, SERUM 0.91 mg/dL (0.72-1.25); EST GLOMERULAR FILTRATION RATE > 60 ML/MIN (60-); GLUCOSE 118 mg/dL (74-118); POTASSIUM 4.1 mmol/L (3.5-5.1); SODIUM 138 mmol/L (136-145)
--- NOTE | 2018-07-13 07:43 | Diagnostic Imaging Report ---
EXAMINATION: CHEST SINGLE (PORTABLE) INDICATION: \S\PE \S\[id number] \S\0645 COMPARISON: Chest radiograph 10/31/2017, Chest CT 07/11/2018 FINDINGS: AP view TUBES and LINES: None. LUNGS: Lungs are well inflated. No focal consolidations. PLEURA: No pleural effusion or pneumothorax. HEART AND MEDIASTINUM: The cardiomediastinal silhouette is stable. BONES AND SOFT TISSUES: No acute osseous lesion. Soft tissues are unremarkable. UPPER ABDOMEN: No free air under the diaphragm. IMPRESSION: No acute radiographic abnormality. Please refer to CT 07/11/2018 for description of PE. Signed by: DR. King Sepulveda MD on 07/13/2018 7:40 AM
[2018-07-13] MEDS: FAMOTIDINE 20 MG TAB PO SCH ×2 (07:44→16:21)
[2018-07-13 08:00] VITALS: BP 156/83
[2018-07-13] MEDS ORDERED: FONDAPARINUX SODIUM 10 MG/0.8 ML SYR SQ SCH (09:00)
[2018-07-13 09:33] VITALS: BP 166/81
[2018-07-13 12:33] VITALS: BP 182/81
[2018-07-13] MEDS ORDERED: CLONIDINE HCL 0.1 MG TAB PO PRN (13:15)
[2018-07-13] MEDS ORDERED: LEVOFLOXACIN 250MG/D5W 50ML 50 ML IV SCH (13:30)
--- NOTE | 2018-07-13 15:00 | Progress Note ---
DATE: INTERNAL MEDICINE PROGRESS NOTE SUBJECTIVE: A 72-year-old male who was diagnosed with bilateral pulmonary embolism and DVT on both lower extremities, started on anticoagulation. PHYSICAL EXAM VITAL SIGNS: Blood pressure is 182/81, temperature 96.9, heart rate 73 per minute, respiratory rate 20 per minute, and oxygen sat is 99%. HEART: Regular rhythm. Normal S1, S2 sounds. LUNGS: Clear bilaterally. ABDOMEN: Soft. EXTREMITIES: Show no evidence of cyanosis, edema or trauma. LABORATORY DATA: On the BMP; sodium 138, potassium 4.1, chloride 108, CO2 20, BUN 12, creatinine 0.91, and glucose 119. On the CBC; white blood count 8.22, hemoglobin 9.5, hematocrit 34.7, and platelet count 413,000. PT 16.0, INR 1.18, PTT 29.8, AST 21, ALT 20, total bilirubin 0.5, and alkaline phosphatase 115. CT of the chest showed bilateral pulmonary embolism and left pulmonary . FINAL IMPRESSION 1. Bilateral pulmonary embolism. 2. Deep vein thrombosis on the leg. 3. Morbid obesity. 4. Chronic anemia. 5. Urinary tract infection. 6. Uncontrolled hypertension. PLAN OF TREATMENT: We are going to continue Arixtra 10 mg once a day, Coumadin 5 mg daily. Daily PT and INR. To continue the Arixtra . Continue Pepcid 20 mg twice a day. Continue Norvasc 5 mg daily, clonidine 0.1 mg q.8 hours as needed for hypertension. I will do a urine culture. We are going to start empirically on Levaquin 250 mg IV daily. Job#: [id number] CELESTINA
[2018-07-13] MEDS ORDERED: WARFARIN SOD 5 MG TAB PO SCH (17:00)
[2018-07-13] MEDS: FONDAPARINUX SODIUM 10 MG/0.8 ML SYR SQ SCH (17:38)
[2018-07-13 19:50] VITALS: BP 161/76
[2018-07-13 20:00] VITALS: BP 161/76
[2018-07-13] MEDS: DIPHENHYDRAMINE HCL 25 MG CAP PO PRN (21:33)
[2018-07-13] MEDS: ACETAMINOPHEN 325 MG TAB PO PRN (21:33)
[2018-07-14] VITALS (8 sets, daily range): BP systolic 135–165; BP diastolic 68–91
[2018-07-14] MEDS: LISINOPRIL 10 MG TAB PO SCH (08:12)
[2018-07-14] MEDS: FAMOTIDINE 20 MG TAB PO SCH ×2 (08:12→17:36)
[2018-07-14 09:12] LABS: INR 1.15; PROTHROMBIN TIME 15.7 seconds (11.9-14.5)
[2018-07-14] MEDS ORDERED: CLONIDINE HCL 0.1 MG TAB PO PRN (12:30)
--- NOTE | 2018-07-14 13:15 | Progress Note ---
DATE: INTERNAL MEDICINE PROGRESS NOTE SUBJECTIVE: Patient said that he has some itching after he was started on Coumadin and Arixtra. I do not see any anywhere. PHYSICAL EXAM VITAL SIGNS: Blood pressure 162/86, temperature 98.8, heart rate 76 per minute, respiratory rate 20 per minute, and oxygen saturation 98%. HEART: Regular rhythm, normal S1, S2 sounds. LUNGS: Clear bilaterally. ABDOMEN: Soft. EXTREMITIES: Show no evidence of cyanosis, edema or trauma. LABORATORY DATA: On the BMP; sodium 138, potassium 4.1, chloride 108, CO2 20, BUN 12, creatinine 0.91, and glucose 118. On the CBC; white blood count 8.22, hemoglobin 9.5, hematocrit 34.0, and platelet count 413,000. PT 15.7, INR 1.15, PTT 29.8, AST 21, and ALT 20. Total bilirubin is 0.5 and alkaline phosphatase 115. FINAL IMPRESSION: Bilateral pulmonary embolism, right leg deep vein thrombosis, and hypertension. PLAN OF TREATMENT: Continue with Arixtra 10 mg once a day and Coumadin 5 mg daily. Continue monitoring PT and INR daily. Pepcid 20 mg twice a day, clonidine 0.1 mg 3 times a day, lisinopril 10 mg daily, Tylenol 650 mg q.4 hours as needed, Benadryl 75 mg q.6 hours as needed for itching. We are going to continue to Arixtra once the INR is more than 2.0. Job#: [id number] CELESTINA
--- NOTE | 2018-07-14 14:39 | Progress Note ---
DATE: ADDENDUM INTERNAL MEDICINE PROGRESS NOTE He also had a UTI. Job#: [id number] CELESTINA
[2018-07-14] MEDS: WARFARIN SOD 5 MG TAB PO SCH (17:36)
[2018-07-14] MEDS: FONDAPARINUX SODIUM 10 MG/0.8 ML SYR SQ SCH (18:14)
[2018-07-15] VITALS (8 sets, daily range): BP systolic 133–167; BP diastolic 66–79
[2018-07-15] MEDS: ACETAMINOPHEN 325 MG TAB PO PRN (00:40)
[2018-07-15] MEDS: DIPHENHYDRAMINE HCL 25 MG CAP PO PRN (00:50)
[2018-07-15] MEDS: FAMOTIDINE 20 MG TAB PO SCH ×2 (08:48→17:36)
[2018-07-15] MEDS: AMLODIPINE BESYLATE 5 MG TAB PO SCH (08:48)
[2018-07-15] MEDS: LISINOPRIL 10 MG TAB PO SCH (08:49)
[2018-07-15] MEDS ORDERED: AZTREONAM 1 GM/NS 50 ML 50 ML IV SCH (09:15)
[2018-07-15] MEDS ORDERED: SODIUM CHLORIDE 0.9% 500ML 500 ML ONE (09:33)
[2018-07-15] MEDS: AZTREONAM 1 GM VIAL IV SCH ×2 (09:52→21:57)
[2018-07-15] MEDS: IRON SUCROSE 100 MG in SODIUM CHLORIDE 0.9% 100 ML 100 ML IV SCH (09:52)
[2018-07-15 09:55] LABS: INR 1.16; PROTHROMBIN TIME 15.8 seconds (11.9-14.5)
[2018-07-15] MEDS: WARFARIN SOD 5 MG TAB PO SCH (17:37)
[2018-07-15] MEDS: FONDAPARINUX SODIUM 10 MG/0.8 ML SYR SQ SCH (17:37)
[2018-07-16] VITALS (8 sets, daily range): BP systolic 106–168; BP diastolic 66–78
[2018-07-16] MEDS: AMLODIPINE BESYLATE 5 MG TAB PO SCH (08:08)
[2018-07-16] MEDS: FAMOTIDINE 20 MG TAB PO SCH ×2 (08:08→16:47)
[2018-07-16] MEDS: AZTREONAM 1 GM VIAL IV SCH ×2 (09:28→22:25)
[2018-07-16] MEDS: IRON SUCROSE 100 MG in SODIUM CHLORIDE 0.9% 100 ML 100 ML IV SCH (09:28)
[2018-07-16] MEDS: LISINOPRIL 10 MG TAB PO SCH (12:24)
[2018-07-16 16:21] LABS: INR 1.43; PROTHROMBIN TIME 18.6 seconds (11.9-14.5)
[2018-07-16] MEDS ORDERED: WARFARIN SOD 5 MG TAB PO SCH (17:00)
[2018-07-16] MEDS: FONDAPARINUX SODIUM 10 MG/0.8 ML SYR SQ SCH (17:19)
[2018-07-16] MEDS: CEFTRIAXONE SOD 1 GM VIAL IV SCH (17:29)
[2018-07-17] VITALS (8 sets, daily range): BP systolic 123–162; BP diastolic 58–86
[2018-07-17] MEDS: FAMOTIDINE 20 MG TAB PO SCH ×2 (07:30→16:30)
[2018-07-17] MEDS: LISINOPRIL 10 MG TAB PO SCH (09:00)
[2018-07-17] MEDS: AZTREONAM 1 GM VIAL IV SCH ×2 (09:00→20:18)
[2018-07-17] MEDS: AMLODIPINE BESYLATE 5 MG TAB PO SCH (09:00)
[2018-07-17] MEDS: IRON SUCROSE 100 MG in SODIUM CHLORIDE 0.9% 100 ML 100 ML IV SCH (09:15)
[2018-07-17 15:40] LABS: INR 1.95; PROTHROMBIN TIME 23.8 seconds (11.9-14.5)
[2018-07-17] MEDS: FONDAPARINUX SODIUM 10 MG/0.8 ML SYR SQ SCH (17:03)
[2018-07-17] MEDS: CEFTRIAXONE SOD 1 GM VIAL IV SCH (17:03)
[2018-07-18] VITALS (9 sets, daily range): BP systolic 114–154; BP diastolic 58–78
[2018-07-18 05:20] LABS: INR 1.79; PROTHROMBIN TIME 22.2 seconds (11.9-14.5)
[2018-07-18] MEDS: FAMOTIDINE 20 MG TAB PO SCH ×2 (07:30→16:30)
[2018-07-18] MEDS: AMLODIPINE BESYLATE 5 MG TAB PO SCH (09:00)
[2018-07-18] MEDS: LISINOPRIL 10 MG TAB PO SCH (09:00)
[2018-07-18] MEDS: AZTREONAM 1 GM VIAL IV SCH ×2 (09:00→21:30)
[2018-07-18] MEDS: CEFTRIAXONE SOD 1 GM VIAL IV SCH (17:29)
[2018-07-18] MEDS: FONDAPARINUX SODIUM 10 MG/0.8 ML SYR SQ SCH (17:29)
[2018-07-19 04:50] VITALS: BP 118/57
[2018-07-19 08:00] VITALS: BP 122/61
[2018-07-19] MEDS: FAMOTIDINE 20 MG TAB PO SCH ×2 (09:15→17:42)
[2018-07-19] MEDS: AMLODIPINE BESYLATE 5 MG TAB PO SCH (09:15)
[2018-07-19] MEDS: LISINOPRIL 10 MG TAB PO SCH (09:15)
[2018-07-19] MEDS: AZTREONAM 1 GM VIAL IV SCH ×2 (09:15→21:36)
--- NOTE | 2018-07-19 11:22 | Progress Note ---
DATE: I have spoken to the daughter again over the phone the complexity because of questionable allergy to Coumadin. I have again expressed the patient could be rechallenged and/or could be put on Eliquis at which time she was alarmed that Eliquis in her lvqhzw-[id number]-oel had caused intracranial bleed. I will communicate with Dr. Judd Mello and Dr. Zurita who has given me the consultation my recommendations will be about what I had dictated in my original consultation to consider rechallenging the patient on Coumadin. If he does get itching and/or a rash, we know for sure that he was allergic to Coumadin as he has multiple other allergies and while treated for the pulmonary emboli before he was on multiple drugs and/or if this is not preferred by the attending physician to go ahead and put this patient on Eliquis, however, lifetime. Job#: [id number] cc:MD MELISSA STONE MD MUHAMMAD FAISAL, M.D.
[2018-07-19 12:00] VITALS: BP 111/59
--- NOTE | 2018-07-19 13:03 | Consultation ---
DATE OF CONSULTATION: July 18, 2018 CONSULTATION TO: Dr. Judd Mello Jessee Haider is a 72-year-old white male who has been referred to me for evaluation of recurrent pulmonary emboli. Also, history has been obtained by my personal communication with the patient as well as the daughter whom I know as she is taking care of a patient of mine, Pema Phillips, with a problem with Eliquis. The patient has had pulmonary emboli. As per the daughter, the patient was on Coumadin and multiple other drugs. After approximately 5 days, the patient started having itching and subsequently did break out in a rash. The patient was taken off most of the medications including the Coumadin. Possibility of Coumadin allergy was raised. The itching and rash started 5 days after the patient was on Coumadin. History of cancer of the colon resected at [facility] in March of 2017, the stage of which is not known. SOCIAL HISTORY: Noncontributory. FAMILY HISTORY: Noncontributory. ALLERGIES REPORTED 1. CODEINE. 2. SULFA. 3. PENICILLIN. 4. COUMADIN. MEDICATIONS AT THIS TIME 1. Arixtra. 2. Diphenhydramine. 3. Pepcid. 4. Clonidine. 5. Lisinopril. 6. Tylenol. 7. Azactam. 8. Ceftriaxone REVIEW OF SYSTEMS HEENT: Normal. CARDIAC: History of hypertension. RESPIRATORY: Pulmonary emboli, bronchiectasis. GI: History of colon cancer resected at [facility]. No records are available. : Normal. MUSCULOSKELETAL: Normal. SKIN AND BREASTS: Normal. NEUROENDOCRINE: Reported essentially normal. PHYSICAL EXAMINATION GENERAL: A morbidly obese male. Anemic. No palpable adenopathy. HEART: Within normal limits. LUNGS: Coarse crepitations. ABDOMEN: Obese. Midline scar of surgery is seen. RECTAL: Exam deferred. CENTRAL NERVOUS SYSTEM: Essentially normal. EXTREMITIES: Essentially normal. LABS: Hemoglobin of 9.5; hematocrit 34.7; white count 8200; platelets 413,000 with indices of iron deficiency. INR reported at 1.79. Bilirubin 0.5, SGOT 21, SGPT 20, alkaline phosphatase 115. Sodium 138, potassium 4.1, chloride 108, CO2 20. BUN 12, creatinine 0.9. Glucose 118. CT of the chest reports to have pulmonary emboli, pulmonary infarction, as well as bronchiectasis. IMPRESSION 1. Recurrent pulmonary emboli. 2. History of colon cancer resection. 3. History of cholecystectomy on 11/02/2017. 4. Iron deficiency anemia. 5. Hyperproteinemia. 6. Hyperglobulinemia. 7. Hypoalbuminemia. 8. Pulmonary infarct. 9. Bronchiectasis. 10. Pulmonary emboli, recurrent. 11. Very questionable allergy to Coumadin. 12. Pradaxa failure. PLAN, COMMENTS AND SUGGESTIONS: Suggest lifetime anticoagulation. The questionable allergy to Coumadin is very questionable, even after talking to the daughter, because she claims that the patient was on subcutaneous injections. I suspect this was either Lovenox or Arixtra, not Coumadin. The daughter claims that after about the 5th day, the patient started having itching and then a rash. The patient was taken off multiple drugs including the Coumadin and was labeled as Coumadin allergy. There are 2 ways to handle this. One is to restart the patient on Coumadin and observe. If the patient does come up with a rash, we know for sure that he has an allergy to Coumadin. If this is route is not something the attending would want, the patient can be put on Eliquis or Xarelto. The patient also has iron deficiency anemia, which can be only treated with IV INFeD. Thank you very much for allowing me to participate in management of this patient. I have not taken any action as I have dictated in my consultation. I have been told by the nursing staff as well as by the case mgr that the patient is going to be transferred today to a different facility for further care. If this is going to happen, the patient can be put on Eliquis and iron. I again suggest the patient's anticoagulation to be lifetime, as there is no doubt clinically that he has thrombophilia. Most patients with an underlying malignancy do have thrombophilia. It would be of academic interest for a thrombophilia profile. The patient has been on anticoagulants recently. The patient should be taken off anticoagulants for more than a month before any meaningful results of the thrombophilia profile. Again, as I dictated, it would be of academic interest to do the thrombophilia. Job#: [id number] cc:MD BRIAN STONE M.D. DAVID STEIN, MD
[2018-07-19 16:00] VITALS: BP 129/60
[2018-07-19] MEDS: WARFARIN SOD 5 MG TAB PO SCH (17:42)
[2018-07-19] MEDS: CEFTRIAXONE SOD 1 GM VIAL IV SCH (17:42)
[2018-07-19 20:31] VITALS: BP 116/62
[2018-07-20] VITALS (8 sets, daily range): BP systolic 101–131; BP diastolic 59–76
[2018-07-20] MEDS: AZTREONAM 1 GM VIAL IV SCH ×2 (09:10→20:19)
[2018-07-20] MEDS: FAMOTIDINE 20 MG TAB PO SCH ×2 (09:10→17:56)
[2018-07-20 09:15] LABS: INR 1.54; PROTHROMBIN TIME 19.8 seconds (11.9-14.5)
[2018-07-20] MEDS ORDERED: FONDAPARINUX SODIUM 10 MG/0.8 ML SYR SQ SCH (17:00)
[2018-07-20] MEDS: AMLODIPINE BESYLATE 5 MG TAB PO SCH (17:56)
[2018-07-20] MEDS: WARFARIN SOD 5 MG TAB PO SCH (17:56)
[2018-07-20] MEDS: CEFTRIAXONE SOD 1 GM VIAL IV SCH (17:56)
[2018-07-20] MEDS: LISINOPRIL 10 MG TAB PO SCH (17:56)
[2018-07-20] MEDS: FERROUS SULFATE 325 MG TAB PO SCH (20:20)
[2018-07-21] VITALS (7 sets, daily range): BP systolic 115–130; BP diastolic 50–86
[2018-07-21] MEDS: AMLODIPINE BESYLATE 5 MG TAB PO SCH (08:39)
[2018-07-21] MEDS: LISINOPRIL 10 MG TAB PO SCH (08:39)
[2018-07-21] MEDS: FERROUS SULFATE 325 MG TAB PO SCH ×3 (08:39→17:07)
[2018-07-21] MEDS: FAMOTIDINE 20 MG TAB PO SCH ×2 (08:39→17:07)
[2018-07-21] MEDS: AZTREONAM 1 GM VIAL IV SCH ×2 (11:30→22:15)
[2018-07-21 12:02] LABS: INR 2.09; PROTHROMBIN TIME 25.1 seconds (11.9-14.5)
[2018-07-21] MEDS ORDERED: WARFARIN SOD 5 MG TAB PO SCH ×4 (17:00)
[2018-07-21] MEDS: CEFTRIAXONE SOD 1 GM VIAL IV SCH (22:00)
[2018-07-22] VITALS: BP 94/60
[2018-07-22 04:20] VITALS: BP 104/51
[2018-07-22 06:46] LABS: BASOPHILS # (AUTO) 0.1 (0.0-0.1); BASOPHILS % 0.9 % (0.0-1.0); EOSINOPHILS # (AUTO) 0.3 (0.0-0.4); EOSINOPHILS % 5.3 % (0.0-6.0); HEMATOCRIT 32.2 % (38.2-49.6); HEMOGLOBIN 9.3 g/dL (14.0-18.0); LYMPHOCYTES # (AUTO) 1.8 (1.0-3.2); MEAN CORPUSCULAR HEMOGLOBIN 19.2 pg (28-32); MEAN CORPUSCULAR HGB CONC 28.9 g/dL (31-35); MEAN CORPUSCULAR VOLUME 66.5 fL (81-99); MONOCYTES # (AUTO) 0.5 (0.2-0.8); MONOCYTES % 8.9 % (4.4-11.3); NEUTROPHILS # (AUTO) 3.2 (2.1-6.9); NEUTROPHILS % 54.4 % (38.7-80.0); PLATELET COUNT 425 x10e3/uL (140-360); RED BLOOD COUNT 4.84 x10e6/uL (4.3-5.7); RED CELL DISTRIBUTION WIDTH 22.7 % (11.7-14.4)
[2018-07-22 08:00] VITALS: BP 113/60
[2018-07-22 08:00] LABS: INR 2.43; PROTHROMBIN TIME 28.2 seconds (11.9-14.5)
[2018-07-22] MEDS: FAMOTIDINE 20 MG TAB PO SCH (08:07)
[2018-07-22] MEDS: LISINOPRIL 10 MG TAB PO SCH (08:07)
[2018-07-22] MEDS: AMLODIPINE BESYLATE 5 MG TAB PO SCH (08:07)
[2018-07-22] MEDS: FERROUS SULFATE 325 MG TAB PO SCH ×2 (08:07→12:20)
[2018-07-22] MEDS: AZTREONAM 1 GM VIAL IV SCH (09:35)
[2018-07-22 11:20] VITALS: BP 113/60
[2018-07-22 11:51] VITALS: BP 135/61
[2018-07-22 13:33] LABS: HYPOCHROMASIA MODERATE; RBC MORPHOLOGY COMMENT ABNORMAL
[2018-07-22 13:35] LABS: ANISOCYTOSIS MODERATE; PLATELET ESTIMATE ADEQUATE; PLATELET MORPHOLOGY COMMENT NORMAL; POIKILOCYTOSIS SLIGHT
--- OUTSIDE RECORDS SUMMARY | 2018-07-23 10:51 | XMS REPORT ---
Author Author [facility] Address Unknown Phone Unavailable Care Team Providers Care Home Therapy Teacher Name Role Phone ALFONZO RUIZ Unavailable Unavailable Problems This patient has no known problems. Allergies, Adverse Reactions, Alerts This patient has no known allergies or adverse reactions. Medications This patient has no known medications. Results Test Description Test Time Test Comments Text Results Atomic Results Result Comments CHEST SINGLE (PORTABLE) 2018-07-13 07:36:00 [place] [address] Patient Name: GREG HARGROVE MR #: [id number] : 1945 Age/Sex: 72/M Req #: [id number] Adm Physician: ALFONZO RUIZ MD Ordered by: MELISSA RUST MD Report #: [id number] Location: MED/SURG Room/Bed: [facility] Procedure: [id number] DX/CHEST SINGLE (PORTABLE) Exam Date: 07/13/18 Exam Time: 0645 REPORT STATUS: Signed EXAMINATION: CHEST SINGLE (PORTABLE) INDICATION: COMPARISON: Chest radiograph 10/31/2017, Chest CT 07/11/2018 FINDINGS: AP view TUBES and LINES: None. LUNGS: Lungs are well inflated. No focal consolidations. PLEURA: No pleural effusion or pneumothorax. HEART AND MEDIASTINUM: The cardiomediastinal silhouette is stable. BONES AND SOFT TISSUES: No acute osseous lesion. Soft tissues are unremarkable. UPPER ABDOMEN: No free air under the diaphragm. IMPRESSION: No acute radiographic abnormality. Please refer to CT 07/11/2018 for description of PE. Signed by: DR. King Shukla MD on 07/13/2018 7:40 AM Dictated By: KING SHUKLA MD 9 Transcribed By: PAKO on 07/13/18739 COPY TO: MELISSA RUST MD CT CHEST W 2018-07-11 18:22:00 [place] [address] Patient Name: GREG HARGROVE MR #: [id number] : 1945 Age/Sex: 72/M Req #: [id number] Adm Physician: Ordered by: ANTONY LEÓN MD Report #: [id number] Location: ER Room/Bed: Procedure: [id number] CT/CT CHEST W Exam Date: 07/11/18 Exam Time: 1743 REPORT STATUS: Signed EXAM: CT Chest WITH contrast (PE Protocol) INDICATION: Shortness of breath. S sob PE COMPARISON: None TECHNIQUE: Chest was scanned utilizing a multidetector helical scanner from the lung apex through the level of the diaphragm after administration of IV contrast. Thin section reconstructions were obtained with special concentration on the pulmonary arteries. Coronal and sagittal reformations were obtained. Pulmonary embolism protocol was performed. IV CONTRAST: 100 mL of Isovue 370 COMPLICATIONS: None RADIATION DOSE: Total DLP: 691.76 mGy*cm Estimated effective dose: (DLP x 0.014 x size factor) mSv CTDIvol has been reviewed. It is below the limits set by the Radiation Protocol Committee (RPC). FINDINGS: LINES/ TUBES: None. LUNGS AND AIRWAYS: Large pulmonary emboli burden involving bilateral pulmonary arteries with extension into the respective segmental and subsegmental branches. Mild bilateral perihilar bronchiectasis with mild bronchial wall thickening. Scattered nonspecific groundglass opacities in the lung bases, possibly related to combination of atelectasis and air trapping. Mild focal wedge-shaped atelectasis in the left lower lobe (series 3 image 87). This may represent atelectasis versus infarct. Calcified granuloma in the lateral right upper lobe (series 3 image 46). PLEURA: The pleural spaces are clear. HEART AND MEDIASTINUM: The thyroid gland is normal. No mediastinal, hilar or axillary lymphadenopathy. The heart is normal in size. There is no pericardial effusion. There are moderate atherosclerotic calcifications in the aorta and coronary arteries. Main pulmonary artery measures 4.4 cm in diameter and the ascending aorta measures 4.2 cm. No enlargement of the right atrium or ventricle. Interventricular septum is in midline. No evidence of heart strain at this time. 1.2 x 2.3 cm soft tissue density in the left anterior neck, which is partially visualized but may represent a submandibular lymph node versus submandibular gland. UPPER ABDOMEN: Postoperative changes of Cynthia-en-Y gastric bypass with a small sliding hiatal hernia. Splenic calcified granulomas. Cholecystectomy. BONES: There are degenerative changes in the thoracic spine. SOFT TISSUES: Unremarkable. IMPRESSION: 1. Large pulmonary emboli burden in bilateral pulmonary arteries. 2. No evidence of heart strain at this time. 3. Wedge-shaped atelectasis versus infarct in the left lower lobe. 4. Bronchiectasis, mild bronchial wall thickening, and likely small airway disease in the lungs. Results were discussed with ELISA Rene by Dr. German on 07/11/2018 at 6:26 PM. Signed by: Dr. Jed German M.D. on 07/11/2018 6:36 PM Dictated By: JED GERMAN MD 35 Transcribed By: PAKO on 07/11/181835 COPY TO: ANTONY LEÓN MD HEPTOBILIARY W PHARM [place] [address] Patient Name: GREG HARGROVE MR #: [id number] : 1945 Age/Sex: 72/M Req #: [id number] Adm Physician: ALFONZO RUIZ MD Ordered by: MARTHA GOMES MD Report #: [id number] Location: MED/SURG2 Room/Bed: [facility] Procedure: [id number] NM/HEPTOBILIARY W PHARM Exam Date: 11/01/17 Exam Time: 944 REPORT STATUS: Signed HIDA Scan with Morphine Augmentation Clinical information: RUQ pain; cholelithiasis; hepatomegaly Report: Following the administration of 7.0 of Tc-99m mebrofenin, dynamic images of the abdomen in the anterior projection were obtained through 60 minutes. Additional static image was obtained at 90 minutes. Morphine sulfate 4 mg was administered via slow IV push and additional images were obtained through 30 minutes. Perfusion to the liver is normal. Extraction of tracer by the liver parenchyma is normal. Tracer appears promptly within the biliary tract. Tracer is seen within the small bowel by 55 minutes. Proximal portion of the cystic duct begins to fill by 20 minutes. The gallbladder does not fill during the initial 60 minutes of dynamic imaging or at 90 minutes. Following administration of morphine, the gallbladder also does not fill. Impression: 1. Absence of filling of the gallbladder, even following administration of morphine, is compatible with the diagnosis of acute cystic duct obstruction/acute cholecystitis. A portion of the cystic duct fills but following morphine, the gallbladder does not fill. Signed by: Dr. Delroy Sosa M.D. on 11/01/2017 12:46 PM Dictated By: DELROY SOSA MD 1246 Transcribed By: PAKO on 11/01/17 1246 COPY TO: MARTHA GOMES MD CHEST XRAY LINE PLACEMENT [address], [place] [address] Patient Name: GREG HARGROVE MR #: [id number] : 1945 Age/Sex: 72/M Req #: [id number] Adm Physician: ALFONZO RUIZ MD Ordered by: ALFONZO RUIZ MD Report #: [id number] Location: [facility]/SURG2 Room/Bed: [facility] Procedure: [id number] DX/CHEST XRAY LINE PLACEMENT Exam Date: Exam Time: REPORT STATUS: Signed PROCEDURE: A single AP view of the chest. COMPARISON: [facility], DX, CHEST SINGLE (PORTABLE), 10/31/2017, 0:13. INDICATIONS: PICC PLACEMENT FINDINGS: See impression. IMPRESSION: 1. interval placement of right-sided PICC line, with distal tip projecting in the proximal to mid SVC. 2. Otherwise, no significant interval change. Joel Trujillo M.D. Dictated by: Joel Trujillo M.D. on 10/31/2017 at 17:52 Electronically approved by: Joel Trujillo M.D. on 10/31/2017 at 17:52 Dictated By: JOEL TRUJILLO MD 51 Transcribed By: MICHELLE on 10/31/171751 COPY TO: ALFONZO RUIZ MD CT ABDOMEN/PELVIS W [facility] [address] [place] [address] Patient Name: GREG HARGROVE MR #: [id number] : 1945 Age/Sex: 72/M Req #: [id number] Adm Physician: Ordered by: MANFRED MCMILLAN MD Report #: [id number] Location: ER Room/Bed: Procedure: [id number] CT/CT ABDOMEN/PELVIS W Exam Date: Exam Time: REPORT STATUS: Signed EXAM: CT ABDOMEN/PELVIS W DATE: 10/31/2017 12:37 AM INDICATION: S ABD PAIN, H/O COLON CA WITH ELEVATED LFTS S Y COMPARISON: None TECHNIQUE: The abdomen and pelvis were scanned using a multidetector helical scanner. Coronal and sagittal reformations were obtained. Routine protocol performed. IV Contrast: 100 ml Isovue 370 FINDINGS: Image quality is partially degraded by body habitus leading to noise/photon starvation. LOWER THORAX: Mild bibasilar atelectasis/scarring. LIVER/BILIARY: No masses. No ductal dilatation. GALLBLADDER: Gallstones or sludge. Subtle infiltration of the pericholecystic fat. SPLEEN: Unremarkable PANCREAS: Unremarkable ADRENALS: No nodules KIDNEYS: Symmetric perfusion. No enhancing masses. No hydronephrosis. GI TRACT: Postsurgical changes status post gastric bypass and partial right colonic resection. There is scattered diverticulosis. VESSELS: Infrarenal IVC filter is in place with slight extrusion of the lateral struts. Mild atherosclerotic changes. PERITONEUM/RETROPERITONEUM: No free air or fluid LYMPH NODES: No lymphadenopathy REPRODUCTIVE ORGANS/BLADDER: Bladder is decompressed with a Miner. SOFT TISSUES: Unremarkable BONES: D egenerative changes, which result in narrowing of the lower lumbar spinal canal. IMPRESSION: 1. Cholelithiasis/sludge with subtle infiltration of the pericholecystic fat, which could reflect early/mild acute cholecystitis in the proper clinical context. 2. Otherwise negative for acute abnormality. 3. Postsurgical changes status post presumed right hemicolectomy. No evidence of metastatic disease. Signed by: Dr Ángel Perrin MD on 10/31/2017 4:35 AM Dictated By: ÁNGEL PERRIN MD 4 Transcribed By: PAKO on 10/31/17434 COPY TO: MANFRED MCMILLAN MD US GALLBLADDER [place] [address] Patient Name: GREG HARGROVE MR #: [id number] : 1945 Age/Sex: 72/M Req #: [id number] Adm Physician: Ordered by: MANFRED MCMILLAN MD Report #: [id number] Location: ER Room/Bed: Procedure: [id number] US/US GALLBLADDER Exam Date: 10/31/17 Exam Time: 124 REPORT STATUS: Signed EXAM: US GALLBLADDER DATE: 10/31/2017 12:00 AM INDICATION: , Right upper quadrant pain COMPARISON: None TECHNIQUE: Transverse and longitudinal metzger scale and color doppler sonographic images of the upper abdomen were obtained. FINDINGS: Note that the study was degraded due to overlying bowel gas and patient body habitus. LIVER 19.4 cm in the right midclavicular line. Normal echogenicity, normal contour, no masses. The left liver was poorly evaluated/visualized. GALLBLADDER Tumefactive sludge. No wall-thickening or pericholecystic fluid. Sonographic Harrison's sign not evaluated- patient was given pain medication. BILE DUCTS No intra nor extra-hepatic biliary dilation. Common bile duct measures 0.5 cm PANCREAS: Not visualized due to overlying bowel gas RIGHT KIDNEY: 11.8 cm Echogenicity: Normal Collecting System: No hydronephrosis Stones: None Cyst/Mass: None VESSELS: Aorta: Not visualized Inferior Vena Cava: Visualized portions are normal Main Portal Vein: 1.1 cm, hepatopetal flow. FREE FLUID: None IMPRESSION: Study degraded by overlying bowel gas and body habitus. 1. Gallbladder sludge without evidence of acute cholecystitis. 2. Hepatomegaly. Signed by: Dr Ángel Perrin MD on 10/31/2017 2:23 AM Dictated By: ÁNGEL PERRIN MD 2 Transcribed By: PAKO on 10/31/17222 COPY TO: MANFRED MCMILLAN MD CHEST SINGLE (PORTABLE) [place] [address] Patient Name: GREG HARGROVE MR #: [id number] : 1945 Age/Sex: 72/M Req #: [id number] Adm Physician: Ordered by: MANFRED MCMILLAN MD Report #: [id number] Location: ER Room/Bed: Procedure: [id number] DX/CHEST SINGLE (PORTABLE) Exam Date: Exam Time: REPORT STATUS: Signed CHEST SINGLE (PORTABLE), 10/30/2017 11:41 PM Technique: CHEST SINGLE (PORTABLE) Comparison: None available. Clinical history: Fever Findings: Limited by portable technique and motion artifact. Slightly prominent cardiomediastinal silhouette, accentuated by technique. No consolidation, effusion or pneumothorax. Impression: Limited by portable technique and motion artifact. No definite acute abnormality. If there is ongoing clinical concern, consider repeat. Signed by: Dr Ángel Perrin MD on 10/31/2017 12:34 AM Dictated By: ÁNGEL PERRIN MD Transcribed By: PAKO on 10/31/1733 COPY TO: MANFRED MCMILLAN MD
--- OUTSIDE RECORDS SUMMARY | 2018-07-23 10:51 | XMS REPORT | Clinical Summary ---
Author Author [facility] Address Unknown Phone Unavailable Care Team Providers [employer] Voc[employer] Educator Name Role Phone Asked, No Pcp PCP Unavailable Allergies Active Allergy Reactions Severity Noted Date Comments Codeine Rash Low 06/19/2007 Penicillins Anaphylaxis High 06/19/2007 Tetanus Toxoid Rash Low 06/19/2007 Current Medications Prescription Sig. Disp. Refills Start End Date Status Date olmesartan (BENICAR) 40 Take 40 mg by mouth Active MG tablet daily. budesonide-formoterol Inhale 2 puffs 3 (three) Active (SYMBICORT) 160-4.5 times a day. mcg/actuation inhaler PRADAXA 150 mg capsu TAKE ONE TABLET BY MOUTH 3 07/14/20 Active TWICE DAILY. STOP 17 WARFARIN Active Problems Problem Noted Date Pulmonary embolus (HCC) 05/25/2017 Colonic mass 04/01/2017 Rectal bleed 03/29/2017 Microcytic anemia 03/21/2017 DVT (deep venous thrombosis) (HCC) 03/21/2017 Morbid obesity with BMI of 40.0-44.9, adult (HCC) 03/21/2017 Metabolic acidosis 03/20/2017 Acute hypoxemic respiratory failure (HCC) 03/20/2017 Acute pulmonary embolism (HCC) 03/20/2017 Hypoxia 03/19/2017 Encounters Date Type Specialty Care Team Description 03/11/2018 Telephone Oncology Ben Bass MD 08/22/2017 Orders Only Oncology Sameera Calix MA Malignant neoplasm of colon, unspecified part of colon (Primary Dx) 08/21/2017 Lab Lab Ben Bass MD Malignant neoplasm of colon, unspecified part of colon 08/21/2017 Office Visit Oncology Ben Bass MD Malignant neoplasm of colon, unspecified part of colon (Primary Dx) 08/21/2017 Hospital Radiology Ben Bass MD Malignant neoplasm of Encounter colon, unspecified part of colon after 07/10/2017 Family History Medical History Relation Name Comments Cancer Father Dementia Maternal Aunt Cancer Mother Dementia Mother Heart failure Mother Relation Name Status Comments Father Maternal Aunt Mother Social History Tobacco Use Types Packs/Day Years Used Date Never Smoker Alcohol Use Drinks/Week oz/Week Comments No Sex Assigned at Date Recorded Not on file Last Filed Vital Signs Vital Sign Reading Time Taken Blood Pressure 176/86 08/21/2017 2:10 PM PHONE COUNSELOR Pulse 102 08/21/2017 2:10 PM PHONE COUNSELOR Temperature 36.2 C (97.1 F) 08/21/2017 2:10 PM PHONE COUNSELOR Respiratory Rate - - Oxygen Saturation - - Inhaled Oxygen - - Concentration Weight 152 kg (336 lb) 08/21/2017 2:10 PM PHONE COUNSELOR Height 188 cm (6' 2") 08/21/2017 2:10 PM PHONE COUNSELOR Body Mass Index 43.14 08/21/2017 2:10 PM PHONE COUNSELOR Plan of Treatment Health Maintenance Due Date Last Done Comments SHINGRIX VACCINE (#1) 1996 ZOSTER VACCINE 2006 PNEUMOCOCCAL 2011 POLYSACCHARIDE VACCINE AGE 65 AND OVER PNEUMOCOCCAL-13 2011 INFLUENZA VACCINE 05/08/2018 COLON CANCER SCREENING 03/21/2027 03/21/2017 Implants Implanted Type Area Pantry Goods Worker Device Expiration Model / Identifier Date Serial / Lot Catheter [employer] Delivery Driver [id number] 65cm Surgical N/A: N/A [facility] [place] [id number] Flush Hf Pig - [id number] Implants; INTERVENTION / Implanted: 03/31/2017 (Quantity not Expanders; VASCULAR CONSTANTINO / on file) Extenders; Surgical Wires Cook Celect Alplaus Navalign Vascular N/A: N/A [employer] PERIPHERAL [id number] / Uniset Vena Cava Filter - [id number] Filter INTERVENTION / Implanted: 03/31/2017 (Quantity not on file) Procedures Procedure Name Priority Date/Time Associated Diagnosis Comments TRANSFUSE RED BLOOD CELLS STAT 06/12/2018 5:36 PM CDT TRANSFUSE RED BLOOD CELLS STAT 06/12/2018 5:36 PM CDT TRANSFUSE RED BLOOD CELLS Routine 06/12/2018 5:36 PM CDT ZZESTIMATED GFR Routine 08/21/2017 Results for this 11:18 AM PHONE COUNSELOR procedure are in the results section. CARCINOEMBRYONIC ANTIGEN Routine 08/21/2017 Malignant neoplasm of Results for this (CEA) 11:18 AM PHONE COUNSELOR colon, unspecified part procedure are in the of colon results section. CBC HEMOGRAM Routine 08/21/2017 Malignant neoplasm of Results for this 11:18 AM PHONE COUNSELOR colon, unspecified part procedure are in the of colon results section. PHOSPHORUS LEVEL Routine 08/21/2017 Malignant neoplasm of Results for this 11:18 AM PHONE COUNSELOR colon, unspecified part procedure are in the of colon results section. LDH Routine 08/21/2017 Malignant neoplasm of Results for this 11:18 AM PHONE COUNSELOR colon, unspecified part procedure are in the of colon results section. GGT Routine 08/21/2017 Malignant neoplasm of Results for this 11:18 AM PHONE COUNSELOR colon, unspecified part procedure are in the of colon results section. COMPREHENSIVE METABOLIC Routine 08/21/2017 Malignant neoplasm of Results for this PANEL 11:18 AM PHONE COUNSELOR colon, unspecified part procedure are in the of colon results section. URIC ACID LEVEL Routine 08/21/2017 Malignant neoplasm of Results for this 11:18 AM PHONE COUNSELOR colon, unspecified part procedure are in the of colon results section. CT CHEST W CONTRAST Routine 08/21/2017 Malignant neoplasm of Results for this ABDOMEN W WO CONTRAST 11:12 AM PHONE COUNSELOR colon, unspecified part procedure are in the PELVIS W CONTRAST of colon results section. ZZESTIMATED GFR Routine 08/21/2017 Results for this 9:51 AM PHONE COUNSELOR procedure are in the results section. CREATININE LEVEL Routine 08/21/2017 Results for this 9:51 AM PHONE COUNSELOR procedure are in the results section. after 07/10/2017 Results * Transfuse RBC (06/12/2018 5:36 PM) Only the most recent of 5 results within the time period is included. * Estimated GFR (08/21/2017 11:18 AM) Only the most recent of 2 results within the time period is included. GFR Non Af Amer >90 mL/min/1.[address] [facility] DEPARTMENT OF PATHOLOGY AND GENOMIC MEDICINE GFR Af Amer >90 mL/min/1.[address] [facility] DEPARTMENT OF Comment: PATHOLOGY AND Chronic kidney disease: <60 GENOMIC MEDICINE mL/min/1.73m2 Kidney failure: <15 mL/min/1.73m2 The estimated GFR is calculated from the IDMS-traceable Modification of Diet in Renal Disease Equation. The accuracy of the calculation is poor when the creatinine is normal. Calculated values >90 mL/min/1.73m2 are not reported. This equation has not been validated in children (<18 years), women, the elderly (>70 years), or ethnic groups other than Caucasians and Americans. Specimen Plasma specimen Performing Organization Address [facility] Cent[facility] [address] PATHOLOGY AND GENOMIC MEDICINE * CBC hemogram (08/21/2017 11:18 AM) WBC 7.71 4.50 - 11.00 k/uL [facility] DEPARTMENT OF PATHOLOGY AND GENOMIC MEDICINE RBC 4.69 4.40 - 6.00 m/uL [facility] DEPARTMENT OF PATHOLOGY AND GENOMIC MEDICINE HGB 9.1 (L) 14.0 - 18.0 g/dL [facility] DEPARTMENT OF PATHOLOGY AND GENOMIC MEDICINE HCT 31.7 (L) 41.0 - 51.0 % [facility] DEPARTMENT OF PATHOLOGY AND GENOMIC MEDICINE MCV 67.6 (L) 82.0 - 100.[address] [facility] DEPARTMENT OF PATHOLOGY AND GENOMIC MEDICINE MCH 19.4 (L) 27.0 - 34.[address] [facility] DEPARTMENT OF PATHOLOGY AND GENOMIC MEDICINE MCHC 28.7 (L) 31.0 - 37.0 g/dL [facility] DEPARTMENT OF PATHOLOGY AND GENOMIC MEDICINE RDW - SD 44.3 37.0 - 55.[address] [facility] DEPARTMENT OF PATHOLOGY AND GENOMIC MEDICINE MPV 8.8 8.8 - 13.[address] [facility] DEPARTMENT OF PATHOLOGY AND GENOMIC MEDICINE Platelet count 357 150 - 400 k/uL [facility] DEPARTMENT OF PATHOLOGY AND GENOMIC MEDICINE Nucleated RBC 0.00 /[address] [facility] DEPARTMENT OF PATHOLOGY AND GENOMIC MEDICINE Specimen Blood Performing Organization Address [facility] Centercoky Phone Number [facility] [place] [address] PATHOLOGY AND GENOMIC MEDICINE * Uric acid level (08/21/2017 11:18 AM) Uric acid 4.7 3.4 - 7.0 mg/dL [facility] DEPARTMENT OF PATHOLOGY AND GENOMIC MEDICINE Specimen Plasma specimen Performing Organization Address City/[facility] [place] [address] PATHOLOGY AND [employer] MEDICINE * Phosphorus level (08/21/2017 11:18 AM) Phosphorus 2.4 2.4 - 4.5 mg/dL [facility] DEPARTMENT OF PATHOLOGY AND GENOMIC MEDICINE Specimen Plasma specimen Performing Organization Address City/[facility] [place] [address] PATHOLOGY AND GENOMIC MEDICINE * LDH (08/21/2017 11:18 AM) LDH 169 87 - 225 U/L [facility] DEPARTMENT OF PATHOLOGY AND [employer] MEDICINE Specimen Plasma specimen Performing Organization Address City/[facility] [place] [address] PATHOLOGY AND [facility] * GGT (08/21/2017 11:18 AM) GGT 18 0 - 59 U/L [facility] DEPARTMENT PATHOLOGY AND GENOMIC MEDICINE Specimen Plasma specimen Performing Organization Address [facility] [place] [address] PATHOLOGY AND [facility] * Carcinoembryonic antigen (CEA) (08/21/2017 11:18 AM) CEA 2.8 0.0 - 3.8 ng/mL [facility] DEPARTMENT OF Comment: PATHOLOGY AND Reference range for heavy [facility] MEDICINE smokers:0.0 - 5.5 ng/mL The MARCUS Karol 8000 CEA immunoassay was used. Results obtained with different assay methods or kits should not be used interchangeably and may be different. Specimen Serum Performing Organization Address [facility] [place] [address] PATHOLOGY AND [employer] MEDICINE * Comprehensive metabolic panel (08/21/2017 11:18 AM) Sodium 138 135 - 148 mEq/L [facility] DEPARTMENT OF PATHOLOGY AND GENOMIC MEDICINE Potassium 3.8 3.5 - 5.0 mEq/L [facility] DEPARTMENT OF PATHOLOGY AND GENOMIC MEDICINE Chloride 101 98 - 112 mEq/L [facility] DEPARTMENT OF PATHOLOGY AND GENOMIC MEDICINE CO2 24 24 - 31 mEq/L [facility] DEPARTMENT OF PATHOLOGY AND GENOMIC MEDICINE Anion gap 13 7 - 15 mEq/L [facility] DEPARTMENT OF Comment: PATHOLOGY AND Starting from January [facility] , anion gap calculation no longer incorporates potassium. Please note the change. BUN 10 8 - 23 mg/dL [facility] DEPARTMENT OF PATHOLOGY AND GENOMIC MEDICINE Creatinine 0.8 0.7 - 1.2 mg/dL [facility] DEPARTMENT OF PATHOLOGY AND GENOMIC MEDICINE Glucose 97 65 - 99 mg/dL [facility] DEPARTMENT OF PATHOLOGY AND GENOMIC MEDICINE Calcium 8.8 8.8 - 10.2 mg/dL [facility] DEPARTMENT OF PATHOLOGY AND GENOMIC MEDICINE Protein 8.1 6.3 - 8.3 g/dL [facility] DEPARTMENT OF Comment: PATHOLOGY AND [place] GENOMIC MEDICINE 4.6-7.0 g/dL 1 week 4.4-7.6 g/dL 7 months-1year 5.1-7.3 g/dL 1-2 years5.6-7 .5 g/dL >3 years6.0-8 .0 g/dL 18-150 6.3-8.3 g/dL Albumin 3.0 (L) 3.5 - 5.0 g/dL [facility] DEPARTMENT OF PATHOLOGY AND GENOMIC MEDICINE A/G ratio 0.6 (L) 0.7 - 3.[address] [facility] DEPARTMENT OF PATHOLOGY AND GENOMIC MEDICINE Alkaline phosphatase 115 40 - 129 U/L [facility] DEPARTMENT OF PATHOLOGY AND GENOMIC MEDICINE AST 21 10 - 50 U/L [facility] DEPARTMENT OF PATHOLOGY AND GENOMIC MEDICINE ALT 13 5 - 50 U/L [facility] DEPARTMENT OF PATHOLOGY AND GENOMIC MEDICINE Total bilirubin 0.4 0.0 - 1.2 mg/dL [facility] DEPARTMENT OF PATHOLOGY AND GENOMIC MEDICINE Specimen Plasma specimen Performing Organization Address City/State/Zipcode Phone Number [facility] DEPARTMENT OF [address] [place] [address] PATHOLOGY AND GENOMIC MEDICINE * CT Chest W Contrast Abdomen W Wo Contrast Pelvis W Contrast (08/21/2017 11:12 AM) Narrative Performed At EXAMINATION:CT CHEST W CONTRAST ABDOMEN W WO CONTRAST PELVIS W CONTRAST RADIANT CLINICAL HISTORY:C18.9 Malignant neoplasm of colonunspecified, Ca colon TECHNIQUE: Axial images of the abdomen were obtained prior to intravenous contrast administration. Multiple axial images of the chest, abdomen, and pelvis were obtained following intravenous administration of iodinated contrast. Sagittal and coronal computerized reformatted images were obtained.CT imaging was performed with iterative reconstruction technique and/or automated exposure control to reduce radiation dose. COMPARISON:None. IMPRESSION: Chest: No enlarged mediastinal lymph node is seen. Coronary artery calcification is present. There is ectasia ascending aorta to 4.5 cm. Mild to moderate ectasia remainder of intrathoracic aorta is seen. The pulmonary artery is dilated to 3.9 cm which is compatible with pulmonary arterial hypertension. Abdomen: Calcified hepatic renal limits are present. Gallbladder, pancreas, adrenal glands, and kidneys are normal in appearance. Calcified splenic granulomata are seen. There is a small lateral hernia. Postoperative changes in the gastroesophageal junction are noted. Pelvis: Bladder is normal in appearance. No enlarged pelvic lymph node or mass is seen. Sigmoid diverticula are present. IVC filter is present. Suspicious osseous lesion is not seen. [id number] Procedure Note Hm Interface, Radiology Results Incoming - 08/21/2017 4:58 PM PHONE COUNSELOR EXAMINATION: CT CHEST W CONTRAST ABDOMEN W WO CONTRAST PELVIS W CONTRAST CLINICAL HISTORY: C18.9 Malignant neoplasm of colon unspecified, Ca colon TECHNIQUE: Axial images of the abdomen were obtained prior to intravenous contrast administration. Multiple axial images of the chest, abdomen, and pelvis were obtained following intravenous administration of iodinated contrast. Sagittal and coronal computerized reformatted images were obtained.CT imaging was performed with iterative reconstruction technique and/or automated exposure control to reduce radiation dose. COMPARISON: None. IMPRESSION: Chest: No enlarged mediastinal lymph node is seen. Coronary artery calcification is present. There is ectasia ascending aorta to 4.5 cm. Mild to moderate ectasia remainder of intrathoracic aorta is seen. The pulmonary artery is dilated to 3.9 cm which is compatible with pulmonary arterial hypertension. Abdomen: Calcified hepatic renal limits are present. Gallbladder, pancreas, adrenal glands, and kidneys are normal in appearance. Calcified splenic granulomata are seen. There is a small lateral hernia. Postoperative changes in the gastroesophageal junction are noted. Pelvis: Bladder is normal in appearance. No enlarged pelvic lymph node or mass is seen. Sigmoid diverticula are present. IVC filter is present. Suspicious osseous lesion is not seen. [id number] Performing Organization Address [facility]/Zipcode Phone Number [facility] [address] [place] [address] * Creatinine level (08/21/2017 9:51 AM) Creatinine 0.7Comment: Testing performed 0.7 - 1.2 mg/dL [facility] DEPARTMENT OF on the [employer] instrument by [employer] [id number] GENOMIC MEDICINE Specimen Plasma specimen Performing Organization Address City/[facility] Centercode Phone Number [facility] DEPARTMENT OF [address] [place] [address] PATHOLOGY AND GENOMIC MEDICINE after 07/10/2017 Insurance Payer Benefit Subscriber ID Type Phone Address Plan / Group HUMANA MEDICARE HUMANA xxxxxxxxx PPO MEDICARE PPO/PFFS/E [facility] [place] [address] [place] [address]
--- OUTSIDE RECORDS SUMMARY | 2018-07-23 10:58 | XMS REPORT | Clinical Summary ---
Author Author [facility] Organization [facility] Address Unknown Phone Unavailable Care Team Providers Care Cabinetmaker Apprentice Name Role Phone Asked, No Pcp PCP [...] Taken Blood Pressure 176/86 08/21/2017 2:10 PM SCALLOP DREDGER Pulse 102 08/21/2017 2:10 PM SCALLOP DREDGER Temperature 36.2 C (97.1 F) 08/21/2017 2:10 PM SCALLOP DREDGER Respiratory Rate - - Oxygen Saturation - - Inhaled Oxygen - - Concentration Weight 152 kg (336 lb) 08/21/2017 2:10 PM SCALLOP DREDGER Height 188 cm (6' 2") 08/21/2017 2:10 PM SCALLOP DREDGER Body Mass Index 43.14 08/21/2017 2:10 PM SCALLOP DREDGER Plan of Treatment Health Maintenance Due Date Last Done Comments SHINGRIX VACCINE (#1) 1996 ZOSTER VACCINE 2006 PNEUMOCOCCAL 2011 POLYSACCHARIDE VACCINE AGE 65 AND OVER PNEUMOCOCCAL-13 2011 INFLUENZA VACCINE 05/08/2018 COLON CANCER SCREENING 03/21/2027 03/21/2017 Implants Implanted Type Area Sales Service Promoter Device Expiration Model / Identifier Date Serial / Lot Catheter Angio Licensed Funeral Director Ii 5fr 65cm Surgical N/A: N/A [facility] PERIPHERAL [id number] Flush Hf Pig - [id number] Implants; INTERVENTION / Implanted: 03/31/2017 (Quantity not Expanders; VASCULAR CONSTANTINO / on file) Extenders; Surgical Wires Cook Celect Epps Navalign Vascular N/A: N/A [employer] PERIPHERAL [id number] / Uniset Vena Cava Filter - [id number] Filter INTERVENTION / Implanted: 03/31/2017 (Quantity not on file) Procedures Procedure Name Priority Date/Time Associated Diagnosis Comments TRANSFUSE RED BLOOD CELLS STAT 06/12/2018 5:36 PM CDT TRANSFUSE RED BLOOD CELLS STAT 06/12/2018 5:36 PM CDT TRANSFUSE RED BLOOD CELLS Routine 06/12/2018 5:36 PM CDT ZZESTIMATED GFR Routine 08/21/2017 Results for this 11:18 AM SCALLOP DREDGER procedure are in the results section. CARCINOEMBRYONIC ANTIGEN Routine 08/21/2017 Malignant neoplasm of Results for this (CEA) 11:18 AM SCALLOP DREDGER colon, unspecified part procedure are in the of colon results section. CBC HEMOGRAM Routine 08/21/2017 Malignant neoplasm of Results for this 11:18 AM SCALLOP DREDGER colon, unspecified part procedure are in the of colon results section. PHOSPHORUS LEVEL Routine 08/21/2017 Malignant neoplasm of Results for this 11:18 AM SCALLOP DREDGER colon, unspecified part procedure are in the of colon results section. LDH Routine 08/21/2017 Malignant neoplasm of Results for this 11:18 AM SCALLOP DREDGER colon, unspecified part procedure are in the of colon results section. GGT Routine 08/21/2017 Malignant neoplasm of Results for this 11:18 AM SCALLOP DREDGER colon, unspecified part procedure are in the of colon results section. COMPREHENSIVE METABOLIC Routine 08/21/2017 Malignant neoplasm of Results for this PANEL 11:18 AM SCALLOP DREDGER colon, unspecified part procedure are in the of colon results section. URIC ACID LEVEL Routine 08/21/2017 Malignant neoplasm of Results for this 11:18 AM SCALLOP DREDGER colon, unspecified part procedure are in the of colon results section. CT CHEST W CONTRAST Routine 08/21/2017 Malignant neoplasm of Results for this ABDOMEN W WO CONTRAST 11:12 AM SCALLOP DREDGER colon, unspecified part procedure are in the PELVIS W CONTRAST of colon results section. ZZESTIMATED GFR Routine 08/21/2017 Results for this 9:51 AM SCALLOP DREDGER procedure are in the results section. CREATININE LEVEL Routine 08/21/2017 Results for this 9:51 AM SCALLOP DREDGER procedure are in the results section. after 07/10/2017 Results * Transfuse RBC (06/12/2018 5:36 PM) Only the most recent of 5 results within the time period is included. * Estimated GFR (08/21/2017 11:18 AM) Only the most recent of 2 results within the time period is included. GFR Non Af Amer >90 mL/min/1.73 m2 [facility] DEPART[facility] OF PATHOLOGY AND GENOMIC MEDICINE GFR Af Amer >90 mL/min/1.73 m2 [facility] DEPART[facility] OF Comment: PATHOLOGY AND Chronic [...] Americans. Specimen Plasma specimen Performing Organization Address [facility] [place] [address] PATHOLOGY AND GENOMIC MEDICINE * CBC hemogram (08/21/2017 11:18 AM) WBC 7.71 4.50 - 11.00 k/uL [facility] DEPARTMENT OF PATHOLOGY AND GENOMIC MEDICINE RBC 4.69 4.40 - 6.00 m/uL [facility] OF PATHOLOGY AND GENOMIC MEDICINE HGB 9.1 (L) 14.0 - 18.0 g/dL [facility] OF PATHOLOGY AND GENOMIC MEDICINE HCT 31.7 (L) 41.0 - 51.0 % [facility] OF PATHOLOGY AND GENOMIC MEDICINE MCV 67.6 (L) 82.0 - 100.0 fL [facility] OF PATHOLOGY AND GENOMIC MEDICINE MCH 19.4 (L) 27.0 - 34.0 pg [facility] DE[facility] OF PATHOLOGY AND GENOMIC MEDICINE MCHC 28.7 (L) 31.0 - 37.0 g/dL [facility]PART[facility] OF PATHOLOGY AND GENOMIC MEDICINE RDW - SD 44.3 37.0 - 55.0 fL [facility] OF PATHOLOGY AND GENOMIC MEDICINE MPV 8.8 8.8 - 13.2 fL [facility] OF PATHOLOGY AND GENOMIC MEDICINE Platelet count 357 150 - 400 k/uL [facility] OF PATHOLOGY AND GENOMIC MEDICINE Nucleated RBC 0.00 /100 WBC [facility] DEPART[facility] OF PATHOLOGY AND GENOMIC MEDICINE Specimen Blood Performing Organization Address [facility] Phone Number [facility] [place] [address] PATHOLOGY AND GENOMIC MEDICINE * Uric acid level (08/21/2017 11:18 AM) Uric acid 4.7 3.4 - 7.0 mg/dL [facility] DEPART[facility] OF PATHOLOGY AND GENOMIC MEDICINE Specimen Plasma specimen Performing Organization Address City/[facility] [place] [address] PATHOLOGY AND [employer] MEDICINE * Phosphorus level (08/21/2017 11:18 AM) Phosphorus 2.4 2.4 - 4.5 mg/dL [facility] OF PATHOLOGY AND GENOMIC MEDICINE Specimen Plasma specimen Performing Organization Address [facility] [address] PATHOLOGY AND GENOMIC MEDICINE * LDH (08/21/2017 11:18 AM) LDH 169 87 - 225 U/L [facility] DEPARTMENT OF PATHOLOGY AND [employer] MEDICINE Specimen Plasma specimen Performing Organization Address [place]/[facility] [place] [address] PATHOLOGY AND [facility] * GGT (08/21/2017 11:18 AM) GGT 18 0 - 59 U/L [facility] PATHOLOGY AND GENOMIC MEDICINE Specimen Plasma specimen Performing Organization Address [facility] [place] [address] PATHOLOGY AND [facility] * Carcinoembryonic antigen (CEA) (08/21/2017 11:18 AM) CEA 2.8 0.0 - 3.8 ng/mL [facility] DEPARTMENT OF Comment: PATHOLOGY AND Reference range for heavy [facility] MEDICINE smokers:0.0 - 5.5 ng/mL The MARCUS Karol 8000 CEA immunoassay was used. Results obtained with different assay methods or kits should not be used interchangeably and may be different. Specimen Serum Performing Organization Address [facility] [place] [address] PATHOLOGY AND [employer] MEDICINE * Comprehensive metabolic panel (08/21/2017 11:18 AM) Sodium 138 135 - 148 mEq/L [facility]PART[facility] OF PATHOLOGY AND GENOMIC MEDICINE Potassium 3.8 3.5 - 5.0 mEq/L [facility] OF PATHOLOGY AND GENOMIC MEDICINE Chloride 101 98 - 112 mEq/L [facility] DE[facility] OF PATHOLOGY AND GENOMIC MEDICINE CO2 24 24 - 31 mEq/L [facility] OF PATHOLOGY AND GENOMIC MEDICINE Anion gap 13 7 - 15 mEq/L [facility] DEPART[facility] OF Comment: PATHOLOGY AND Starting from January [facility] , anion gap calculation no longer incorporates potassium. Please note the change. BUN 10 8 - 23 mg/dL [facility] DEPART[facility] OF PATHOLOGY AND GENOMIC MEDICINE Creatinine 0.8 0.7 - 1.2 mg/dL [facility] OF PATHOLOGY AND GENOMIC MEDICINE Glucose 97 65 - 99 mg/dL [facility] OF PATHOLOGY AND GENOMIC MEDICINE Calcium 8.8 8.8 - 10.2 mg/dL [facility] OF PATHOLOGY AND GENOMIC MEDICINE Protein 8.1 6.3 - 8.3 g/dL [facility] DEPART[facility] OF Comment: PATHOLOGY AND [place] GENOMIC MEDICINE 4.6-7.0 g/dL 1 week 4.4-7.6 g/dL 7 months-1year 5.1-7.3 g/dL 1-2 years5.6-7 .5 g/dL >3 years6.0-8 .0 g/dL 18-150 6.3-8.3 g/dL Albumin 3.0 (L) 3.5 - 5.0 g/dL [facility] DEPARTMENT OF PATHOLOGY AND GENOMIC MEDICINE A/G ratio 0.6 (L) 0.7 - 3.8 [facility] DE[facility] OF PATHOLOGY AND GENOMIC MEDICINE Alkaline phosphatase 115 40 - 129 U/L [facility] DE[facility]MENT OF PATHOLOGY AND GENOMIC MEDICINE AST 21 10 - 50 U/L [facility] DEPARTMENT OF PATHOLOGY AND GENOMIC MEDICINE ALT 13 5 - 50 U/L [facility] OF PATHOLOGY AND GENOMIC MEDICINE Total bilirubin 0.4 0.0 - 1.2 mg/dL [facility] DEPARTMENT OF PATHOLOGY AND GENOMIC MEDICINE Specimen Plasma specimen Performing Organization Address City/State/Zipcode Phone Number [facility] DEPARTMENT OF [address] [place] [address] PATHOLOGY AND GENOMIC MEDICINE * CT Chest [...] present. Suspicious osseous lesion is not seen. [id number] Procedure Note Hm Interface, Radiology Results Incoming - 08/21/2017 4:58 PM SCALLOP DREDGER EXAMINATION: CT CHEST W CONTRAST ABDOMEN W [...] present. Suspicious osseous lesion is not seen. [id number] Performing Organization Address [facility]/Zipcode Phone Number [facility] [address] [place] [address] * Creatinine level (08/21/2017 9:51 AM) Creatinine 0.7Comment: Testing performed 0.7 - 1.2 mg/dL [facility] DEPARTMENT OF on the ISEstifyT instrument by [employer] [id number] GENOMIC MEDICINE Specimen Plasma specimen Performing Organization Address City/[facility]ode Phone Number [facility] OF [address] [place] [address] PATHOLOGY AND GENOMIC MEDICINE after 07/10/2017 Insurance Payer Benefit Subscriber ID Type Phone Address Plan / Group HUMANA MEDICARE HUMANA xxxxxxxxx PPO MEDICARE PPO[facility] [place] [address] [place] [address]
== END 2018-07-22 13:32 | DRG 175 ==
LOC: ER 15:59 → ERHOLD 17:59 → MED/SURG 22:50 → MED/SURG2 07-15 11:08
DX: I26.99 Other pulmonary embolism without acute cor pulmonale (principal); J96.01 Acute respiratory failure with hypoxia; D68.59 Other primary thrombophilia; Z68.41 Body mass index [BMI] 40.0-44.9, adult; N39.0 Urinary tract infection, site not specified; I82.411 Acute embolism and thrombosis of right femoral vein; Z87.891 Personal history of nicotine dependence; J44.9 Chronic obstructive pulmonary disease, unspecified; Z88.5 Allergy status to narcotic agent; Z88.0 Allergy status to penicillin; Z88.2 Allergy status to sulfonamides; Z88.8 Allergy status to other drugs, medicaments and biological substances; E66.01 Morbid (severe) obesity due to excess calories; Z85.038 Personal history of other malignant neoplasm of large intestine; Z98.84 Bariatric surgery status; Z98.0 Intestinal bypass and anastomosis status; D64.9 Anemia, unspecified; Z90.49 Acquired absence of other specified parts of digestive tract; D50.9 Iron deficiency anemia, unspecified; E88.09 Other disorders of plasma-protein metabolism, not elsewhere classified; I10 Essential (primary) hypertension; Z82.49 Family history of ischemic heart disease and other diseases of the circulatory system; B96.20 Unspecified Escherichia coli [E. coli] as the cause of diseases classified elsewhere
CPT/HCPCS: 36415; 71045; 71260; 80048; 80053; 81001; 81241; 81400; 82378; 82550; 82553; 83540; 83690; 84466; 84484; 85025; 85303; 85306; 85610; 85730; 86022; 87086; 87186; 87493; 93005; 93306; 93970; 97139; 99284; J0696; J1650; J1756; J1956; J7040; Q9967

== ENCOUNTER 2019-02-24 13:40 | Inpatient (IN) | payer MEDICARE ==
[~2019-02-24] VITALS: Ht 188 cm; Wt 163.9 kg
--- OUTSIDE RECORDS SUMMARY | 2019-02-24 13:44 | XMS REPORT | Clinical Summary ---
Author Author [facility] Organization [facility] Address Unknown Phone Unavailable Care Team Providers Care Mat Inspector Name Role Phone Asked, No Pcp PCP Unavailable Allergies Comments Active Allergy Reactions Severity Noted Date Codeine Rash Low 06/19/2007 Penicillins Anaphylaxis High 06/19/2007 Tetanus Toxoid Rash Low 06/19/2007 Medications End Date Status Medication Sig Dispensed Refills Start Date Active olmesartan (BENICAR) 40 Take 40 mg by 0 MG tablet mouth daily. Active budesonide-formoterol Inhale 2 0 (SYMBICORT) 160-4.5 puffs 3 mcg/actuation inhaler (three) times a day. Active PRADAXA 150 mg capsu TAKE ONE 3 TABLET BY 7 MOUTH TWICE DAILY. STOP WARFARIN Active Problems Problem Noted Date Pulmonary embolus 05/25/2017 Colonic mass 04/01/2017 Rectal bleed 03/29/2017 Microcytic anemia 03/21/2017 DVT (deep venous thrombosis) 03/21/2017 Morbid obesity with BMI of 40.0-44.9, adult 03/21/2017 Metabolic acidosis 03/20/2017 Acute hypoxemic respiratory failure 03/20/2017 Acute pulmonary embolism 03/20/2017 Hypoxia 03/19/2017 Encounters Care Team Description Date Type Specialty Ben Bass MD 03/11/2018 Telephone Oncology after 02/23/2018 Family History Medical History Relation Name Comments Cancer Father Dementia Maternal Aunt Cancer Mother Dementia Mother Heart failure Mother Relation Name Status Comments Father Maternal Aunt Mother Social History Date Tobacco Use Types Packs/Day Years Used Never Smoker Alcohol Use Drinks/Week oz/Week Comments No Sex Assigned at Date Recorded Not on file Industry Job Start Date Occupation Not on file Not on file Not on file Travel End Travel History Travel Start No recent travel history available. Last Filed Vital Signs Not on file Plan of Treatment Health Maintenance Due Date Last Done Comments SHINGLES VACCINES (#1) 1996 65+ PNEUMOCOCCAL VACCINE 2011 (1 of 2 - PCV13) PNEUMOCOCCAL 2011 POLYSACCHARIDE VACCINE AGE 65 AND OVER INFLUENZA VACCINE 05/08/2019 COLON CANCER SCREENING 03/21/2027 03/21/2017 Implants Device Identifier Shelf Expiration Date Model / Serial / Lot Implanted Type Area Manufactur er [id number] / / Catheter Angio Body And Frame Man Ii 5fr 65cm Surgical N/A: N/A BSC Flush Hf Pig - [id number] Implants; PERIPHERAL Implanted: 03/31/2017 (Quantity not Expanders; INTERVENTI on file) Extenders; ON Surgical VASCULAR Wires CONSTANTINO [id number] / / Cook Celect [place] Navalign Vascular N/A: N/A [employer] Uniset Vena Cava Filter - [id number] Filter PERIPHERAL Implanted: 03/31/2017 (Quantity not INTERVENTI on file) ON Procedures Comments Procedure Name Priority Date/Time Associated Diagnosis TRANSFUSE RED BLOOD CELLS STAT 06/12/2018 5:36 PM CDT TRANSFUSE RED BLOOD CELLS STAT 06/12/2018 5:36 PM CDT TRANSFUSE RED BLOOD CELLS Routine 06/12/2018 5:36 PM CDT after 02/23/2018 Results * Transfuse RBC (06/12/2018 5:36 PM CDT) Only the most recent of 5 results within the time period is included. after 02/23/2018 Insurance Type Payer Benefit Subscriber ID Effective Phone Address Plan / Dates Group PPO HUMANA MEDICARE HUMANA xxxxxxxxx 2017-P MEDICARE resent PPO/PFFS/E [facility] Advance Directives Patient has advance care planning documents, and code status on file. For more i nformation, please contact: Kenneth Ignacio [address] [place] [address] Date Inactivated Comments Code Status Date Activated 03/25/2017 10:28 PM Full Code 03/20/2017 3:56 AM Code Status decision reached by: Patient
[2019-02-24 14:23] LABS: BASOPHILS % 0.5 % (0.0-1.0); EOSINOPHILS # (AUTO) 0.2 (0.0-0.4); EOSINOPHILS % 2.1 % (0.0-6.0); HEMATOCRIT 38.1 % (38.2-49.6); HEMOGLOBIN 11.6 g/dL (14.0-18.0); LYMPHOCYTES # (AUTO) 1.2 (1.0-3.2); LYMPHOCYTES % 14.4 % (18.0-39.1); MEAN CORPUSCULAR HEMOGLOBIN 21.6 pg (28-32); MEAN CORPUSCULAR HGB CONC 30.4 g/dL (31-35); MEAN CORPUSCULAR VOLUME 70.8 fL (81-99); MONOCYTES # (AUTO) 0.5 (0.2-0.8); MONOCYTES % 6.7 % (4.4-11.3); NEUTROPHILS # (AUTO) 6.1 (2.1-6.9); NEUTROPHILS % 75.8 % (38.7-80.0); PLATELET COUNT 440 x10e3/uL (140-360); RED BLOOD COUNT 5.38 x10e6/uL (4.3-5.7); RED CELL DISTRIBUTION WIDTH 19.3 % (11.7-14.4)
[2019-02-24 14:32] LABS: INR 3.25; PROTHROMBIN TIME 33.9 seconds (11.9-14.5)
[2019-02-24 14:33] LABS: PARTIAL THROMBOPLASTIN TIME 46.2 seconds (23.8-35.5)
[2019-02-24 14:42] LABS: ALANINE AMINOTRANSFERASE 17 IU/L (0-55); ALBUMIN 3.2 g/dL (3.5-5.0); ALBUMIN/GLOBULIN RATIO 0.6 (0.8-2.0); ALKALINE PHOSPHATASE 114 IU/L (40-150); AMYLASE 25 U/L (25-125); ANION GAP 12.7 mmol/L (8-16); BLOOD UREA NITROGEN 8 mg/dL (7-26); BUN/CREATININE RATIO 9 (6-25); CALCIUM 9.1 mg/dL (8.4-10.2); CARBON DIOXIDE 23 mmol/L (22-29); CHLORIDE 105 mmol/L (98-107); CREATINE KINASE 146 IU/L (30-200); CREATININE, SERUM 0.91 mg/dL (0.72-1.25); EST GLOMERULAR FILTRATION RATE > 60 ML/MIN (60-); GLUCOSE 101 mg/dL (74-118); LIPASE 11 U/L (8-78); POTASSIUM 3.7 mmol/L (3.5-5.1); SODIUM 137 mmol/L (136-145)
[2019-02-24 14:52] LABS: BILIRUBIN,URINE NEGATIVE (NEGATIVE); CLARITY,URINE HAZY (CLEAR); COLOR,URINE YELLOW (YELLOW); KETONES,URINE NEGATIVE (NEGATIVE); LEUKOCYTE ESTERASE ,URINE 1+ (NEGATIVE); NITRITE,URINE POSITIVE (NEGATIVE); PROTEIN,URINE DIPSTICK NEGATIVE (NEGATIVE); URINE UROBILINOGEN 1 mg/dL (0.2 - 1)
--- NOTE | 2019-02-24 14:55 | Diagnostic Imaging Report ---
EXAMINATION: CHEST SINGLE (PORTABLE) INDICATION: Dyspnea, edema COMPARISON: Chest radiograph 07/13/2018. FINDINGS: TUBES and LINES: None. LUNGS: Lungs are moderately inflated. Linear subsegmental atelectasis in the right lower lung. There is no evidence of pneumonia or pulmonary edema. PLEURA: No pleural effusion or pneumothorax. HEART AND MEDIASTINUM: The cardiomediastinal silhouette is mildly enlarged. There is prominence of the left main pulmonary artery, unchanged from the prior study, suggestive of pulmonary arterial hypertension. BONES AND SOFT TISSUES: No acute osseous abnormality. UPPER ABDOMEN: No free air under the diaphragm. IMPRESSION: No acute radiographic abnormality. Signed by: Dr. Ioana Castro MD on 02/24/2019 2:52 PM
[2019-02-24 15:03] LABS: BACTERIA,URINE MANY /HPF; RBC,URINE 0-5 /HPF (0-5)
[2019-02-24] MEDS ORDERED: LEVOFLOXACIN 500MG/D5W 100ML 100 ML IV STA (15:23)
--- NOTE | 2019-02-24 16:48 | Diagnostic Imaging Report ---
EXAM: CT Chest WITH contrast (PE Protocol) INDICATION: ^r/o PE c/o SOB ^[id number] ^1613 ^Y COMPARISON: Chest CT dated 07/11/2018 TECHNIQUE: Chest was scanned utilizing a multidetector helical scanner from the lung apex through the level of the diaphragm after administration of IV contrast. Thin section reconstructions were obtained with special concentration on the pulmonary arteries. Coronal and sagittal reformations were obtained. Dose modulation, iterative reconstruction, and/or weight based adjustment of the mA/kV was utilized to reduce the radiation dose to as low as reasonably achievable. Pulmonary embolism protocol was performed. IV CONTRAST: 100 mL of Isovue-370 COMPLICATIONS: None RADIATION DOSE: Total DLP: 649.24 mGy*cm Estimated effective dose: (DLP x 0.014 x size factor) mSv CTDIvol has been reviewed. It is below the limits set by the Radiation Protocol Committee (RPC). FINDINGS: LINES/ TUBES: None. LUNGS AND AIRWAYS: Suboptimal opacification of the pulmonary arteries. Within this context, no definite central pulmonary embolism visualized. Questionable filling defect within subsegmental right lower lobe pulmonary artery (series 2, image 64). Evaluation of the lungs are limited due to respiratory motion. Focal small area of right upper lobe patchy opacities (series 3, image 50). 3 mm groundglass right upper lobe nodule (series 3, image 43). Pulmonary vascular congestion. Airways are normal. PLEURA: The pleural spaces are clear. HEART AND MEDIASTINUM: The thyroid gland is normal. No mediastinal, hilar or axillary lymphadenopathy. The heart is enlarged. There is no pericardial effusion. . Main pulmonary artery measures 4 cm, suggestive of pulmonary hypertension. Ectatic ascending thoracic aorta measuring 4.3 cm at the level of the right pulmonary artery. Mild atherosclerotic calcification of aorta and coronary arteries. UPPER ABDOMEN: Evidence of gastric surgery. Small sliding hiatal hernia. Cholecystectomy. Anterior mid upper abdomen bowel anastomosis. BONES: The visualized bony thorax is within normal limits. SOFT TISSUES: Unremarkable. IMPRESSION: Very limited study due to suboptimal opacification of the pulmonary arteries. Within this context, no definite central pulmonary embolism visualized. Limited for evaluation of segmental, subsegmental, and some lobar branches. If there is high clinical concern for pulmonary embolism, consider ventilation/perfusion Nuclear Medicine scan for further evaluation. Questionable filling defect within right lower lobe subsegmental branch, could be artifactual or residual old embolism. Focal area of mild right upper lobe opacification, could represent developing pneumonia. Cardiomegaly and pulmonary vascular congestion. Signed by: Dr. Geo Panda MD on 02/24/2019 4:44 PM
[2019-02-24] MEDS ORDERED: ASPIRIN 81 MG CHEW TAB PO ONE (17:15)
[2019-02-24] MEDS ORDERED: ONDANSETRON HCL INJ 2MG/ML 2ML 2 MG/ML VIAL IV PRN (17:15)
[2019-02-24] MEDS ORDERED: SODIUM CHLORIDE FLUSH 10 ML SYR INJ PRN (17:15)
[2019-02-24] MEDS ORDERED: MORPHINE SULFATE 2 MG/ML SYR 1ML IV PRN (17:15)
[2019-02-24] MEDS ORDERED: MORPHINE SULFATE INJ 4 MG/ML INJ 1ML IV PRN (17:30)
[2019-02-24] MEDS ORDERED: LEVOFLOXACIN 500MG/D5W 100ML 100 ML IV SCH (17:30)
--- OUTSIDE RECORDS SUMMARY | 2019-02-24 17:42 | XMS REPORT | Clinical Summary ---
Author Author [facility] Address Unknown Phone Unavailable Care Team Providers Care Correspondence Specialist Name Role Phone Asked, No Pcp PCP [...] / Lot Implanted Type Area Manufactur er [id number] / / Catheter Angio Billet Header Ii 5fr 65cm Surgical N/A: N/A BSC Flush Hf Pig - [id number] Implants; PERIPHERAL Implanted: 03/31/2017 (Quantity not Expanders; INTERVENTI on file) Extenders; ON Surgical VASCULAR Wires CONSTANTINO [id number] / / Cook Celect Nikolai Navalign Vascular N/A: N/A [employer] Uniset Vena Cava Filter - [id number] Filter PERIPHERAL Implanted: 03/31/2017 (Quantity not INTERVENTI [...] MEDICARE HUMANA xxxxxxxxx 2017-P MEDICARE resent PPO/PFFS/E [facility] Advance Directives Patient has advance care planning documents, and code status on file. For more i nformation, please contact: Kenneth Ignacio [address] [address] Date Inactivated Comments Code Status Date Activated 03/25/2017 10:28 PM Full Code 03/20/2017 3:56 AM Code Status decision reached by: Patient
--- NOTE | 2019-02-24 19:40 | NUR ---
Patient arrived from ER via astretcher. Assisted to bed from stretcher. Oriented to room and environment. Instructed to call on the onset of pain or SOB. Call light within reach. Will continue to monitor.
[2019-02-24 20:10] VITALS: BP 143/65
--- NOTE | 2019-02-24 20:49 | NUR ---
Page out to Dr Delfino Mello. Patient and daughter requesting home medications to be started. Spoke with [employer] service.
--- NOTE | 2019-02-24 21:50 | NUR ---
Home medications reviewed, continue all home meds. Notified PT 33.9 and INR 3.25, Would like to still resume coumadin. Yes, continue coumadin 13 mg po Q PM.
[2019-02-24 22:48] LABS: CREATINE KINASE MB 1.6 ng/mL (0-5.0)
[2019-02-24] MEDS ORDERED: IOPAMIDOL 370 MG/ML 200 ML INFUS..BTL INJ ONE (22:48)
[2019-02-24] MEDS ORDERED: SODIUM CHLORIDE 0.9% 50ML 50 ML ONE (22:48)
[2019-02-24] MEDS ORDERED: IMODIUM2 MG PO (23:03)
[2019-02-24] MEDS ORDERED: COUMADIN5 MG PO (23:03)
[2019-02-24] MEDS ORDERED: HYDROCORTISONE30 GM TOP (23:03)
[2019-02-24] MEDS ORDERED: COUMADIN3 MG PO (23:03)
[2019-02-24] MEDS ORDERED: BENADRYL25 M1 PO (23:03)
[2019-02-24] MEDS ORDERED: CRANBERRY250 MG PEG (23:03)
[2019-02-24] MEDS ORDERED: LASIX20 MG PO (23:03)
[2019-02-24] MEDS ORDERED: SPIRONOLACTONE25 MG PO (23:03)
[2019-02-24] MEDS ORDERED: NYSTATIN TOP (23:03)
[2019-02-24] MEDS ORDERED: ZOLOFT50 MG PO (23:03)
[2019-02-24] MEDS ORDERED: NYSTATIN 100,000 UNITS/GM CRM 30GM TUBE TOP PRN (23:15)
[2019-02-24] MEDS ORDERED: HYDROCORTISONE .5% 30 GM TUBE TOP PRN (23:15)
[2019-02-24] MEDS: WARFARIN SOD 5 MG TAB PO SCH (23:30)
[2019-02-24] MEDS: DIPHENHYDRAMINE HCL 25 MG CAP PO SCH (23:30)
[2019-02-24] MEDS: SERTRALINE HCL 50 MG TAB PO SCH (23:30)
[2019-02-24] MEDS: WARFARIN SOD 3 MG TAB PO SCH (23:30)
[2019-02-24 23:51] VITALS: BP 143/65
[2019-02-25] VITALS (8 sets, daily range): BP systolic 133–158; BP diastolic 63–74
[2019-02-25 05:34] LABS: BASOPHILS % 0.6 % (0.0-1.0); EOSINOPHILS # (AUTO) 0.2 (0.0-0.4); EOSINOPHILS % 3.6 % (0.0-6.0); HEMATOCRIT 32.1 % (38.2-49.6); HEMOGLOBIN 9.6 g/dL (14.0-18.0); LYMPHOCYTES # (AUTO) 1.1 (1.0-3.2); LYMPHOCYTES % 16.7 % (18.0-39.1); MEAN CORPUSCULAR HEMOGLOBIN 21.4 pg (28-32); MEAN CORPUSCULAR HGB CONC 29.9 g/dL (31-35); MEAN CORPUSCULAR VOLUME 71.7 fL (81-99); MONOCYTES # (AUTO) 0.7 (0.2-0.8); MONOCYTES % 10.3 % (4.4-11.3); NEUTROPHILS # (AUTO) 4.4 (2.1-6.9); NEUTROPHILS % 68.5 % (38.7-80.0); PLATELET COUNT 362 x10e3/uL (140-360); RED BLOOD COUNT 4.48 x10e6/uL (4.3-5.7); RED CELL DISTRIBUTION WIDTH 18.9 % (11.7-14.4)
--- NOTE | 2019-02-25 05:34 | Diagnostic Imaging Report ---
Examination: Single AP view of the chest. COMPARISON: February 24, 2019 INDICATION: Shortness of breath DISCUSSION: Lines/tubes: None. Lungs: Central venous congestion. No edema or pneumonia. Pleura: No pleural effusion or pneumothorax. Heart and mediastinum: Cardiomegaly Bones and soft tissues: No acute bony abnormalities. IMPRESSION: Cardiomegaly with central venous congestion Signed by: Dr. Chavez You M.D. on 02/25/2019 5:30 AM
[2019-02-25 06:00] LABS: ALANINE AMINOTRANSFERASE 14 IU/L (0-55); ALBUMIN 2.6 g/dL (3.5-5.0); ALBUMIN/GLOBULIN RATIO 0.6 (0.8-2.0); ALKALINE PHOSPHATASE 92 IU/L (40-150); ANION GAP 8.6 mmol/L (8-16); BLOOD UREA NITROGEN 10 mg/dL (7-26); BUN/CREATININE RATIO 12 (6-25); CALCIUM 8.4 mg/dL (8.4-10.2); CARBON DIOXIDE 22 mmol/L (22-29); CHLORIDE 108 mmol/L (98-107); CREATININE, SERUM 0.84 mg/dL (0.72-1.25); EST GLOMERULAR FILTRATION RATE > 60 ML/MIN (60-); GLUCOSE 99 mg/dL (74-118); POTASSIUM 3.6 mmol/L (3.5-5.1); SODIUM 135 mmol/L (136-145)
--- NOTE | 2019-02-25 06:00 | NUR ---
Patient resting in bedside chair, call light within reach. No issues or concerns. Will continue to monitor.
--- NOTE | 2019-02-25 07:30 | NUR ---
Received patient AAOX3, sitting on recliner chair. Patient on room air and IV to right AC 20 gauge. No s/s of distress. Call mcginnis within reach.
[2019-02-25] MEDS: CRANBERRY EXTRACT 500 MG PEG SCH (09:00)
[2019-02-25] MEDS: FUROSEMIDE 20 MG TAB PO SCH (09:08)
[2019-02-25] MEDS: LOPERAMIDE HCL 2 MG CAP PO SCH ×3 (09:09→23:03)
[2019-02-25] MEDS: SPIRONOLACTONE 25 MG TAB PO SCH (09:09)
[2019-02-25 14:31] LABS: CREATINE KINASE 119 IU/L (30-200)
[2019-02-25] MEDS ORDERED: LEVOFLOXACIN 500MG/D5W 100ML 100 ML IV SCH (15:00)
[2019-02-25] MEDS ORDERED: ONDANSETRON HCL 4 MG ORAL DISINTEGRATING TAB PO PRN (15:15)
--- NOTE | 2019-02-25 15:15 | NUR ---
Visit made by the Spiritual Care Department Pastoral Visitor, Olivia Hernandes. PV provided pastoral presence, prayer, hospitality, and supportive listening. Pastoral Visitor informed pt/family of the scope of Cop Examiner Services and availability. ALONDRA PALAFOX Repairer [employer] Spiritual Care Department O: [phone] Pager: [phone] ([phone] number calling from)
--- NOTE | 2019-02-25 15:15 | NUR ---
PATIENT REFUSED ECHO PER APPLIED BIOLOGY PROFESSOR. PT STATED, MY HEART IS FINE, [facility] TOLD ME MY HEART IS GOOD. THE PROBLEM IS MY LEGS."
[2019-02-25] MEDS ORDERED: SODIUM CHLORIDE 0.9% 250ML 250 ML ONE (17:00)
--- NOTE | 2019-02-25 18:09 | NUR ---
PT IS SITTING IN RECLINER WITH NO S/S OF DISTRESS. ANTIBIOTICS RUNNING. CALL WHITE WITHIN REACH.
--- NOTE | 2019-02-25 18:12 | NUR ---
PT REFUSED NYSTATIN CREAM. HE SAID TO LEAVE IT AT THE BEDSIDE AND HE WILL APPLY IT.
--- NOTE | 2019-02-25 19:26 | NUR ---
Received patient in report. Patient is sitting in recliner at side of bed with feet elevated. No pain reported. No S&S of distress noted. Call light in reach.
[2019-02-25] MEDS: WARFARIN SOD 5 MG TAB PO SCH (23:02)
[2019-02-25] MEDS: DIPHENHYDRAMINE HCL 25 MG CAP PO SCH (23:03)
[2019-02-25] MEDS: WARFARIN SOD 3 MG TAB PO SCH (23:03)
[2019-02-25] MEDS: SERTRALINE HCL 50 MG TAB PO SCH (23:11)
[2019-02-26] VITALS (9 sets, daily range): BP systolic 123–144; BP diastolic 59–77
--- NOTE | 2019-02-26 05:04 | NUR ---
PATIENT RESTING IN RECLINER AT BEDSIDE WITH FEET ELEVATED. NO PAIN REPORTED. NO S&S OF DISTRESS NOTED. CALL LIGHT IN REACH.
[2019-02-26 06:42] LABS: PROTHROMBIN TIME 50.1 seconds (11.9-14.5)
[2019-02-26 06:43] LABS: INR 5.4
--- NOTE | 2019-02-26 07:12 | NUR ---
JOSEFA RUIZ CONCERNING CRITICAL INR VALUE. ONCOMING NURSE WAITING FOR CALL BACK.
--- NOTE | 2019-02-26 07:30 | NUR ---
PATIENT IS SITTING UP IN THE RECLINER- PATIENT IS AWAKE AND IN STABLE CONDITION WITH NO S/S OF RESPIRATORY DISTRESS. PATIENT DENIES PAIN. TELEMETRY APPLIED. PATIENT'S PERSONAL WALKER IS AVAILABLE IN THE ROOM. CALL LIGHT IS WITHIN REACH OF PATIENT AND PATIENT INSTRUCTED TO CALL FOR ASSISTANCE NEEDED.
[2019-02-26] MEDS: LOPERAMIDE HCL 2 MG CAP PO SCH (08:15)
[2019-02-26] MEDS: SPIRONOLACTONE 25 MG TAB PO SCH (08:15)
[2019-02-26] MEDS: CRANBERRY EXTRACT 500 MG PEG SCH (08:15)
[2019-02-26] MEDS: FUROSEMIDE 20 MG TAB PO SCH (08:15)
[2019-02-26] MEDS: SERTRALINE HCL 50 MG TAB PO SCH (08:15)
[2019-02-26] MEDS ORDERED: CEFTAZIDIME 1 GM VIAL IV SCH (12:45)
[2019-02-26] MEDS: DOCUSATE SODIUM 100 MG CAP PO SCH (13:50)
--- NOTE | 2019-02-26 13:53 | NUR ---
SPOKE WITH DAUGHTER ABOUT SNF ORDER VIA PHONE, SHE DID STATE THAT THE DOCTOR HAD TOLD HER YESTERDAY THAT HE NEEDED A UROLOGIST AND A COLONOSCOPY, SPOKE WITH DISTILLERY WORKER GENERAL ABOUT CONCERNS, LET REP KNOW PACKET IS AT NURSES STATION.
[2019-02-26] MEDS: CEFTAZIDIME SOD 1 GM/NS 50ML 50 ML IV SCH ×2 (14:49→21:18)
--- NOTE | 2019-02-26 19:31 | NUR ---
PATIENT IS IN STABLE CONDITION WITH NO S/S OF RESPIRATORY DISTRESS--TELEMETRY APPLIED. CALL LIGHT IS WITHIN REACH, PATIENT INSTRUCTED TO CALL FOR ASSISTANCE NEEDED. BEDSIDE REPORT GIVEN TO ONCOMING NURSE.
--- NOTE | 2019-02-26 19:52 | NUR ---
PT IS RESTING IN THE RECLINER. NO RESPIRATORY DISTRESS NOTED. BED IN THE LOWEST POSITION, LOCKED, AND CALL LIGHT WITHIN REACH. WILL CONTINUE TO MONITOR.
[2019-02-26] MEDS: DIPHENHYDRAMINE HCL 25 MG CAP PO SCH (21:18)
--- NOTE | 2019-02-26 21:21 | Diagnostic Imaging Report ---
EXAMINATION: CT of the abdomen and pelvis without contrast. TECHNIQUE: Helical CT images of the abdomen and pelvis were performed from the lung bases to the lesser trochanters. No intravenous contrast was given per renal stone protocol. Coronal and sagittal reformatted images were obtained.Dose modulation, iterative reconstruction, and/or weight based adjustment of the mA/kV was utilized to reduce the radiation dose to as low as reasonably achievable. COMPARISON: None. CLINICAL HISTORY:Urinary tract infection DISCUSSION: Artifact along the right body secondary to habitus within the scanner. ABDOMEN/PELVIS: LOWER THORAX: Unremarkable. HEPATOBILIARY:No focal hepatic lesions. No biliary ductal dilation. Cholecystectomy. SPLEEN: No splenomegaly. PANCREAS: No focal masses or ductal dilatation. ADRENALS: No adrenal nodules. KIDNEYS/URETERS: No hydronephrosis, stones, or solid mass lesions. PELVIC ORGANS/BLADDER: The bladder is normal. PERITONEUM/RETROPERITONEUM: No free air or fluid. LYMPH NODES: No intra-abdominal,retroperitoneal, pelvic or inguinal lymphadenopathy. VESSELS: IVC filter. GI TRACT: Bariatric surgery. Colonic diverticulosis without inflammatory change. BONES AND SOFT TISSUES: Lower lumbar spondylosis. IMPRESSION: No acute CT finding. No calculi. Limited due to artifact. Signed by: Dr. Chavez You M.D. on 02/26/2019 9:18 PM
[2019-02-27] VITALS (8 sets, daily range): BP systolic 127–167; BP diastolic 58–74
--- NOTE | 2019-02-27 02:36 | Consultation ---
DATE OF CONSULTATION: 02/26/2019 Urology Consultation REASON FOR CONSULTATION: Urinary tract infections. HISTORY OF PRESENT ILLNESS: Jessee Haider is a 73-year-old man with a previous urological history of urolithiasis. The patient had undergone a previous urological stone surgery. He also passed stones in the past. He has not followed up with his urologist [facility] the [facility] in quite sometime. He does not recall, who the urologist was or which hospitals he utilized in the [facility]. The patient was admitted with a number of non-urological complaints, is found to have a complicated urinary tract infection. Urological consultation was sought. The patient denies hematuria or nocturia. I think his urination is non-problematic without any irritative symptoms and without any obstructive symptoms. PAST MEDICAL AND SURGICAL HISTORY: 1. Current admission for dyspnea. 2. Status post bariatric surgery. 3. Status post colonoscopy. 4. Colon resection. 5. IVC filter. 6. Obesity. SOCIAL HISTORY: The patient denies smoking, ethanol, or drug use. He was a professor and a leadership coach. ALLERGIES: PENICILLIN, SULFA, CODEINE, AND WARFARIN. CURRENT MEDICATIONS: Please refer to the MAR. FAMILY HISTORY: Noncontributory to the active urological problems. REVIEW OF SYSTEMS: Consistent with above history of present illness and past medical history, is otherwise negative for all other systems. PHYSICAL EXAMINATION: GENERAL: Pleasant 73-year-old man sitting in a [place] chair, in no apparent distress. He is currently afebrile. VITAL SIGNS: Currently stable. ABDOMEN: Soft, morbidly obese, nondistended, nontender without costovertebral angle tenderness. Kidneys not palpable without hepatosplenomegaly. No obvious evidence of hernia. GENITOURINARY: Testes descended bilaterally and are nontender. The patient has a normal circumcised male phallus with normal meatus. The patient's penis is buried by his adiposity, so that his glans penis is covered by shaft skin. For the remaining physical examination systems, please refer to the admission history and physical on the chart. LABORATORY STUDIES: CT scan of the abdomen and pelvis was done without contrast. It revealed no hydronephrosis, stones, nor solid lesions. The bladder was listed as normal. Urine culture grew an E. coli that was pansensitive except for ciprofloxacin and levofloxacin. White blood cell count of 6420, hemoglobin 9.6, and platelets 362,000. The patient's sodium is slightly low at 135, creatinine is normal at 0.84. Urinalysis was significant for nitrite positive urine with 11-20 wbc's and many bacteria. ASSESSMENT: 1. Complicated urinary tract infection with recurrent urinary tract infections. 2. History of urolithiasis. 3. Hyponatremia that is mild. 4. Anemia. 5. Obesity. 6. Bilateral lower extremity edema that is severe. PLAN: 1. I ordered a CT stone protocol to evaluate for any stones prior to evaluating the patient, the results are mentioned above. 2. I recommend continuing the patient's course of antibiotics. The current dose of antibiotics should be culture specific. 3. Ongoing urological followup is strongly recommended and encouraged both due to his recurrent urolithiasis history as well as for his complicated urinary tract infection, eventual cystoscopy and retrogrades are probably be indicated. Thank you very much for involving us in the care of your patient. We will be happy to follow him along with you as well as an outpatient. Colby Cotter MD [facility] /[id number] cc: Dr. Dinora Mello
[2019-02-27 06:01] LABS: INR 5.81
--- NOTE | 2019-02-27 06:13 | NUR ---
PAGE DR Addi RUIZ TO REPORT CRITICAL PT 53.0 AND INR 5.81. AWAITING CALL BACK. WILL CONTINUE TO MONITOR.
--- NOTE | 2019-02-27 07:42 | NUR ---
PATIENT IS SITTING UP IN THE RECLINER- PATIENT IS AWAKE AND IN STABLE CONDITION WITH NO S/S OF RESPIRATORY DISTRESS. NO PAIN VOICED. CALL LIGHT IS WITHIN REACH, PATIENT INSTRUCTED TO CALL FOR ASSISTANCE NEEDED.
[2019-02-27] MEDS: FUROSEMIDE 20 MG TAB PO SCH (08:17)
[2019-02-27] MEDS: SPIRONOLACTONE 25 MG TAB PO SCH (08:17)
[2019-02-27] MEDS: SERTRALINE HCL 50 MG TAB PO SCH (08:17)
[2019-02-27] MEDS: CEFTAZIDIME SOD 1 GM/NS 50ML 50 ML IV SCH ×2 (08:17→21:18)
[2019-02-27] MEDS: DOCUSATE SODIUM 100 MG CAP PO SCH (08:17)
[2019-02-27] MEDS: CRANBERRY EXTRACT 500 MG PEG SCH (08:57)
--- NOTE | 2019-02-27 11:09 | NUR ---
DR. RUIZ ON THE UNIT- INFORMED OF INR OF 5.81, COUMADIN STOPPED AT THIS TIME FROM MEDICATION LIST AND SHOULD BE PLACED ON HOLD UNTIL FURTHER NOTICE FROM DR. RUIZ. ORDER RECEIVED FROM DR. RUIZ ON PT/INR LAB ORDER FOR THE NEXT DAYS. DR. RUIZ GIVEN COPY OF CT AB/PELVIS REPORT.
--- NOTE | 2019-02-27 13:25 | NUR ---
CALL PLACED OUT TO DR. RUIZ REGARDING VITAMIN K ORDER TO DECREASE INR SO PHYSICAL THERAPY CAN WORK WITH THE PATIENT. AWAITING CALLBACK.
--- NOTE | 2019-02-27 14:26 | NUR ---
RECEIVED CALLBACK FROM DR. RUIZ REGARDING VITAMIN K- DR. RUIZ SAID NO TO VITAMIN K. INFORMED DR. RUIZ PT IS NOT ABLE TO WORK WITH THE PATIENT D/T THE HIGH INR LEVEL- NO NEW ORDER GIVEN.
--- NOTE | 2019-02-27 19:10 | NUR ---
PATIENT IS IN STABLE CONDITION WITH NO S/S OF RESPIRATORY DISTRESS. NO PAIN VOICED. PATIENT SITTING IN THE RECLINER. CALL LIGHT IS WITHIN REACH, PATIENT INSTRUCTED TO CALL FOR ASSISTANCE NEEDED. BEDSIDE REPORT GIVEN TO ONCOMING NURSE.
--- NOTE | 2019-02-27 19:45 | NUR ---
PT IS RESTING IN THE RECLINER. NO RESPIRATORY DISTRESS NOTED. BED IN THE LOWEST POSITION, LOCKED, AND CALL LIGHT WITHIN REACH. WILL CONTINUE TO MONITOR.
[2019-02-27] MEDS: DIPHENHYDRAMINE HCL 25 MG CAP PO SCH (21:18)
[2019-02-28] VITALS (8 sets, daily range): BP systolic 113–138; BP diastolic 56–73
[2019-02-28 06:06] LABS: INR 3.69; PROTHROMBIN TIME 37.4 seconds (11.9-14.5)
[2019-02-28] MEDS: CEFTAZIDIME SOD 1 GM/NS 50ML 50 ML IV SCH ×3 (08:54→22:07)
[2019-02-28] MEDS: SERTRALINE HCL 50 MG TAB PO SCH (08:55)
[2019-02-28] MEDS: CRANBERRY EXTRACT 500 MG PEG SCH (08:55)
[2019-02-28] MEDS: SPIRONOLACTONE 25 MG TAB PO SCH (08:55)
[2019-02-28] MEDS: DOCUSATE SODIUM 100 MG CAP PO SCH (08:55)
[2019-02-28] MEDS: FUROSEMIDE 20 MG TAB PO SCH (08:55)
--- NOTE | 2019-02-28 09:00 | NUR ---
The pt. is up in the bathroom for b m and was assisted ilia to the chair. The iv was found to be infiltrated when attempt mad to flush for antibiotic administration. The site was dc'd and restarted in the right forearm 20 gauge iv cath post 3 attempts.
--- NOTE | 2019-02-28 19:20 | NUR ---
Completed bedside rounds with morning nurse. Pt alert and orient to name. Pt sitting in recliner, feet elevated, +3 bilateral pitting edema. Pt denies pain at this time. Call mcginnis within reach. Will continue to monitor.
[2019-02-28] MEDS: DIPHENHYDRAMINE HCL 25 MG CAP PO SCH (21:45)
[2019-03-01] VITALS (7 sets, daily range): BP systolic 118–155; BP diastolic 60–73
[2019-03-01 06:37] LABS: INR 2.27; PROTHROMBIN TIME 25.7 seconds (11.9-14.5)
--- NOTE | 2019-03-01 07:00 | NUR ---
Report given to morning nurse. Pt alert and oriented. Denies pain at this time. No distress noted.
[2019-03-01] MEDS: CRANBERRY EXTRACT 500 MG PEG SCH (09:00)
[2019-03-01] MEDS: FUROSEMIDE 20 MG TAB PO SCH (09:59)
[2019-03-01] MEDS: CEFTAZIDIME SOD 1 GM/NS 50ML 50 ML IV SCH ×2 (09:59→21:00)
[2019-03-01] MEDS: DOCUSATE SODIUM 100 MG CAP PO SCH (09:59)
[2019-03-01] MEDS: SPIRONOLACTONE 25 MG TAB PO SCH (09:59)
[2019-03-01] MEDS: SERTRALINE HCL 50 MG TAB PO SCH (09:59)
[2019-03-01] MEDS: WARFARIN SOD 5 MG TAB PO SCH (17:38)
--- NOTE | 2019-03-01 19:15 | NUR ---
Bedside rounds completed with morning nurse. Pt alert and orient to name. Pt sitting in recliner, feet elevated, +3 bilateral pitting edema. Pt denies pain at this time. Call mcginnis within reach. Will continue to monitor.
--- NOTE | 2019-03-01 19:16 | Progress Note ---
DATE: 03/01/2019 Internal Medicine Progress Note SUBJECTIVE: The patient is doing well. No significant complaint. PHYSICAL EXAMINATION: VITAL SIGNS: Blood pressure 134/60, temperature 96.4, heart rate 62 per minute, respiratory rate 20 per minute, and oxygen saturation 96%. HEART: Showed regular rhythm. Normal S1, S2 sound. LUNGS: Clear bilaterally. ABDOMEN: Soft. EXTREMITIES: Showed 2+ bilateral pedal edema. LABORATORY STUDIES: On the BMP; sodium 135, potassium 3.6, chloride 108, CO2 32, BUN 10, creatinine 0.84, glucose 99. On the CBC; white blood count 6.42, hemoglobin 9.6, hematocrit 32.1, platelet count 362,000. PT 25.7, INR 2.27, and PTT 43.2. AST 18, ALT 14, and total bilirubin 0.5, alkaline phosphatase of 92. FINAL IMPRESSION: 1. Urinary tract infection with prostatitis. 2. Coagulopathy secondary to Coumadin. 3. History of pulmonary embolism. PLAN OF TREATMENT: Continue Fortaz 1 g IV twice a day. Continue mg at bedtime, Colace 100 mg daily. He is taking furosemide, which I am going to increase to 40 mg daily because of the increased edema in both lower extremities. Continue hydrocortisone cream 0.5% twice a day as needed for itching, morphine 4 mg IV q.4 hours as needed for severe pain, nystatin to affected area q.4 hours as needed for redness, Zofran 4 mg p.o. q.4 hours as needed for nausea and vomiting, Zoloft 100 mg daily, Aldactone 25 mg daily, cranberry extract mg daily, Coumadin 10 mg daily. MD TEO Oconnor/RADHA /[id number]
[2019-03-01] MEDS: DIPHENHYDRAMINE HCL 25 MG CAP PO SCH (21:00)
[2019-03-02] VITALS (7 sets, daily range): BP systolic 122–152; BP diastolic 56–73
--- NOTE | 2019-03-02 07:00 | NUR ---
Report given to morning nurse. Pt alert and oriented. Denies pain at this time. No distress noted.
[2019-03-02 07:18] LABS: INR 1.97; PROTHROMBIN TIME 23.1 seconds (11.9-14.5)
[2019-03-02 07:49] LABS: ANION GAP 12.3 mmol/L (8-16); BLOOD UREA NITROGEN 13 mg/dL (7-26); BUN/CREATININE RATIO 16 (6-25); CALCIUM 8.8 mg/dL (8.4-10.2); CARBON DIOXIDE 24 mmol/L (22-29); CHLORIDE 106 mmol/L (98-107); CREATININE, SERUM 0.82 mg/dL (0.72-1.25); EST GLOMERULAR FILTRATION RATE > 60 ML/MIN (60-); GLUCOSE 96 mg/dL (74-118); MAGNESIUM 2.1 MG/DL (1.3-2.1); POTASSIUM 4.3 mmol/L (3.5-5.1); SODIUM 138 mmol/L (136-145)
[2019-03-02] MEDS: SPIRONOLACTONE 25 MG TAB PO SCH (08:42)
[2019-03-02] MEDS: CRANBERRY EXTRACT 500 MG PEG SCH (08:42)
[2019-03-02] MEDS: DOCUSATE SODIUM 100 MG CAP PO SCH (08:42)
[2019-03-02] MEDS: CEFTAZIDIME SOD 1 GM/NS 50ML 50 ML IV SCH ×2 (08:42→21:00)
[2019-03-02] MEDS: SERTRALINE HCL 50 MG TAB PO SCH (08:42)
[2019-03-02] MEDS ORDERED: FUROSEMIDE 40 MG TAB PO SCH (09:00)
[2019-03-02] MEDS: WARFARIN SOD 5 MG TAB PO SCH (18:04)
--- NOTE | 2019-03-02 18:14 | Progress Note ---
DATE: 03/02/2019 Internal Medicine Progress Note SUBJECTIVE: He is doing well. No significant complaint. OBJECTIVE: VITAL SIGNS: Blood pressure 151/67, temperature , heart rate 62 per minute, respiratory rate 18 per minute, and oxygen saturation 84%. HEART: Showed regular rhythm. Normal S1, S2 sound. LUNGS: Clear bilaterally. ABDOMEN: Soft. CARDIAC: . LABORATORY DATA: BMP; sodium 138, potassium 4.3, chloride 106, CO2 24, BUN 13, and creatinine 0.82. Glucose 96. On CBC, white blood count 6.42, hemoglobin 9.6, hematocrit 32.1, and platelet count 362,000. PT 33.1. INR 1.97. PTT 46.2. AST 18 and ALT 14. Total bilirubin 0.5 and alkaline phosphatase 92. ASSESSMENT: 1. Urinary tract infection, prostatitis. 2. Pneumonia. 3. Coagulopathy. 4. Pulmonary embolism. PLAN: 1. Treatment continue with ceftazidime 1 g IV twice a day. 2. Continue Benadryl 50 mg at bedtime as needed and hydrocortisone twice a day. 3. Continue furosemide 40 mg daily, which I am going to change to IV daily. 4. Continue Zoloft 100 mg daily, Zofran 4 mg IV q.4 hours as needed, morphine 4 mg IV q.4 hours as needed, aldactone 25 mg daily, Colace 100 mg daily, Nystatin q.4 hours, and Coumadin 10 mg daily. 5. Continue monitoring PT and INR. 6. We are going to monitor BUN, creatinine, and electrolytes tomorrow. MD TEO Oconnor/RADHA /[id number]
--- NOTE | 2019-03-02 18:34 | NUR ---
Nutrition Screen Note RD Recommendation for Physician: Continue diet as ordered Plan of Care: RD following, monitoring for tolerance and adequacy Nutrition reason for involvement: LOS Primary Diagnose(s): Dyspnea, UTI, Pneumonia PMH: bariatric surgery Ht:74 in Wt:361.38lb BMI:46.4 kg/m2 IBW:190lb RD Assessment: (03/02/2019) Chart reviewed. Labs and meds reviewed. Initial encounter with patient. Pt is reporting a good po intake/appetite [employer]. Pt is eating well and requesting double protein/meat servings. Pt with bilateral lower extremity edema. Pt stats that he watches his fluid intake, but could not give an exact amount per day. No difficulty chewing or swallowing Current Diet: Cardiac diet Malnutrition Evaluation (03/02/2019) The patient does not meet criteria for a specified degree of malnutrition at this time. Will re-evaluate at follow-up as appropriate. Diet Education Needs Assessment: Diet education not indicated. Nutrition Care Level: Low Signed: Justen Sawant RD, LD, CNSC
--- NOTE | 2019-03-02 19:20 | NUR ---
Completed bedside rounds with morning nurse. Pt alert and orient to name. Pt sitting in recliner, feet elevated, +3 bilateral pitting edema. Pt denies pain at this time. Asked for coffee and rashid crackers, 8oz coffee and 2 pkgs rashid crackers given. Call mcginnis within reach. Will continue to monitor.
[2019-03-02] MEDS: DIPHENHYDRAMINE HCL 25 MG CAP PO SCH (21:00)
[2019-03-03] VITALS (8 sets, daily range): BP systolic 109–136; BP diastolic 53–73
[2019-03-03 06:36] LABS: INR 1.92; PROTHROMBIN TIME 22.6 seconds (11.9-14.5)
[2019-03-03 06:43] LABS: ANION GAP 10.2 mmol/L (8-16); BLOOD UREA NITROGEN 13 mg/dL (7-26); BUN/CREATININE RATIO 15 (6-25); CALCIUM 8.9 mg/dL (8.4-10.2); CARBON DIOXIDE 27 mmol/L (22-29); CHLORIDE 102 mmol/L (98-107); CREATININE, SERUM 0.85 mg/dL (0.72-1.25); EST GLOMERULAR FILTRATION RATE > 60 ML/MIN (60-); GLUCOSE 95 mg/dL (74-118); POTASSIUM 4.2 mmol/L (3.5-5.1); SODIUM 135 mmol/L (136-145)
--- NOTE | 2019-03-03 07:40 | NUR ---
PATIENT ASSISTED TO THE RESTROOM AND BACK TO RECLINING CHAIR. REDNESS REMAINS TO GROIN, EDEMA TO LOWER EXTREMITIES. ALL PERSONAL ITEMS CLOSE TO PATIENT, CALL LIGHT AT REACH.
[2019-03-03] MEDS: CRANBERRY EXTRACT 500 MG PEG SCH (09:00)
[2019-03-03] MEDS: DOCUSATE SODIUM 100 MG CAP PO SCH (09:27)
[2019-03-03] MEDS: FUROSEMIDE INJ 10 MG/ML 4 ML VIAL IV SCH (09:27)
[2019-03-03] MEDS: SPIRONOLACTONE 25 MG TAB PO SCH (09:27)
[2019-03-03] MEDS: SERTRALINE HCL 50 MG TAB PO SCH (09:27)
[2019-03-03] MEDS: CEFTAZIDIME SOD 1 GM/NS 50ML 50 ML IV SCH ×2 (09:48→20:49)
--- NOTE | 2019-03-03 10:19 | NUR ---
EDUCATED ABOUT IMM, SIGNED, FILED IN CHART, WITH COPY LEFT WITH FAMILY AT BEDSIDE.
--- NOTE | 2019-03-03 10:20 | NUR ---
PACKET FAXED TO [facility]. CHOICE GIVEN OVER PHONE VIA DAUGHTER CECE
--- NOTE | 2019-03-03 10:46 | NUR ---
FAXED UPDATED CLINICALS TO [facility]
--- NOTE | 2019-03-03 11:10 | NUR ---
PATIENT AMBULATING IN HALLWAY USING ROLLING WALKER WITH PHYSICAL THERAPY, NO COMPLAIN VOICED. WILL CONTINUE TO MONITOR.
--- NOTE | 2019-03-03 15:37 | NUR ---
MD IN TO SEE PATIENT, NO NEW ORDER RECEIVED. PATIENT REQUESTED AND RECEIVED A CUP OF COFFEE. CALL LIGHT AT REACH.
[2019-03-03] MEDS: WARFARIN SOD 5 MG TAB PO SCH (17:20)
[2019-03-03] MEDS: DIPHENHYDRAMINE HCL 25 MG CAP PO SCH (20:49)
[2019-03-04] VITALS: BP 153/66
[2019-03-04 04:00] VITALS: BP 125/69
[2019-03-04 06:35] LABS: INR 2.52; PROTHROMBIN TIME 27.9 seconds (11.9-14.5)
--- NOTE | 2019-03-04 07:16 | NUR ---
PATIENT OUT OF BED TO RECLINING CHAIR RESTING WITH NO RESPIRATORY DISTRESS. EDEMA REMAINS TO LOWER EXTREMITIES, ELEVATED. CALL LIGHT AT REACH.
[2019-03-04 07:20] VITALS: BP 124/56
[2019-03-04 07:43] VITALS: BP 124/56
--- NOTE | 2019-03-04 07:43 | NUR ---
PT ACCEPTED TO [facility] [address] [facility] CALL REPORT TO [phone] SARA MUSE IN ROOM 116.
[2019-03-04] MEDS: SERTRALINE HCL 50 MG TAB PO SCH (08:55)
[2019-03-04] MEDS: FUROSEMIDE INJ 10 MG/ML 4 ML VIAL IV SCH (08:55)
[2019-03-04] MEDS: SPIRONOLACTONE 25 MG TAB PO SCH (08:55)
[2019-03-04] MEDS: CEFTAZIDIME SOD 1 GM/NS 50ML 50 ML IV SCH (08:55)
[2019-03-04] MEDS: CRANBERRY EXTRACT 500 MG PEG SCH (08:55)
[2019-03-04] MEDS: DOCUSATE SODIUM 100 MG CAP PO SCH (08:55)
--- NOTE | 2019-03-04 11:00 | NUR ---
PATIENT TRANSFERRED TO [facility]. REPORT CALLED AND GIVEN TO RECEIVING NURSE. IV TO LEFT ARM INTACT AND PATENT. ALL PERSONAL ITEMS TAKEN WITH PATIENT. LEFT UNIT ON STRETCHER PER AMBULANCE.
== END 2019-03-04 11:03 | DRG 871 ==
LOC: ER 13:40 → ERHOLD 17:10 → MED/SURG3 19:38
DX: A41.9 Sepsis, unspecified organism (principal); J15.9 Unspecified bacterial pneumonia; I50.23 Acute on chronic systolic (congestive) heart failure; N30.00 Acute cystitis without hematuria; E87.1 Hypo-osmolality and hyponatremia; Z68.42 Body mass index [BMI] 45.0-49.9, adult; N41.0 Acute prostatitis; D64.9 Anemia, unspecified; E66.9 Obesity, unspecified; Z98.84 Bariatric surgery status; Z87.440 Personal history of urinary (tract) infections; Z87.442 Personal history of urinary calculi; Z88.5 Allergy status to narcotic agent; Z88.0 Allergy status to penicillin; Z88.2 Allergy status to sulfonamides; Z88.8 Allergy status to other drugs, medicaments and biological substances; Z86.711 Personal history of pulmonary embolism; Z86.718 Personal history of other venous thrombosis and embolism; Z85.038 Personal history of other malignant neoplasm of large intestine; Z98.0 Intestinal bypass and anastomosis status; Z95.828 Presence of other vascular implants and grafts; Z79.01 Long term (current) use of anticoagulants; T45.515A Adverse effect of anticoagulants, initial encounter; B96.20 Unspecified Escherichia coli [E. coli] as the cause of diseases classified elsewhere; R53.81 Other malaise
CPT/HCPCS: 36415; 71045; 71260; 74176; 80048; 80053; 81001; 82150; 82550; 82553; 83605; 83690; 83735; 83880; 84484; 85025; 85610; 85730; 87040; 87086; 87186; 93005; 97139; 99285; J0713; J1940; J1956; J7050; Q9967

== ENCOUNTER 2019-12-01 18:46 | Emergency (ER) | payer MEDICARE ==
[~2019-12-01] VITALS: Ht 188 cm; Wt 170.1 kg
[~2019-12-01 18:46] MED LIST changes: +BENADRYL25 M1 PO; +COUMADIN3 MG PO; +COUMADIN5 MG PO; +CRANBERRY250 MG PEG; +HYDROCORTISONE30 GM TOP; +IMODIUM2 MG PO; +LASIX20 MG PO; +NYSTATIN TOP; +SPIRONOLACTONE25 MG PO; +ZOLOFT50 MG PO
[2019-12-01 19:45] LABS: BASOPHILS % 0.4 % (0.0-1.0); EOSINOPHILS # (AUTO) 0.1 (0.0-0.4); EOSINOPHILS % 1.1 % (0.0-6.0); HEMATOCRIT 38.8 % (38.2-49.6); HEMOGLOBIN 11.3 g/dL (14.0-18.0); LYMPHOCYTES # (AUTO) 1.2 (1.0-3.2); LYMPHOCYTES % 10.8 % (18.0-39.1); MEAN CORPUSCULAR HEMOGLOBIN 20.3 pg (28-32); MEAN CORPUSCULAR HGB CONC 29.1 g/dL (31-35); MEAN CORPUSCULAR VOLUME 69.7 fL (81-99); MONOCYTES # (AUTO) 0.7 (0.2-0.8); MONOCYTES % 6.5 % (4.4-11.3); NEUTROPHILS % 80.7 % (38.7-80.0); PLATELET COUNT 326 x10e3/uL (140-360); RED BLOOD COUNT 5.57 x10e6/uL (4.3-5.7); RED CELL DISTRIBUTION WIDTH 20.6 % (11.7-14.4)
[2019-12-01 20:07] LABS: ALANINE AMINOTRANSFERASE 18 IU/L (0-55); ALBUMIN 3.4 g/dL (3.5-5.0); ALBUMIN/GLOBULIN RATIO 0.8 (0.8-2.0); ALKALINE PHOSPHATASE 118 IU/L (40-150); ANION GAP 12.3 mmol/L (8-16); BLOOD UREA NITROGEN 12 mg/dL (7-26); BUN/CREATININE RATIO 15 (6-25); CALCIUM 8.2 mg/dL (8.4-10.2); CARBON DIOXIDE 23 mmol/L (22-29); CHLORIDE 109 mmol/L (98-107); CREATININE, SERUM 0.79 mg/dL (0.72-1.25); EST GLOMERULAR FILTRATION RATE > 60 ML/MIN (60-); GLUCOSE 84 mg/dL (74-118); POTASSIUM 4.3 mmol/L (3.5-5.1); SODIUM 140 mmol/L (136-145)
--- NOTE | 2019-12-01 22:23 | NUR ---
Patient moved to room 11 at this time.
[2019-12-01 23:25] VITALS: BP 175/88
== END 2019-12-01 23:35 | disposition home or self-care (01) ==
LOC: ER 18:46
DX: R19.7 Diarrhea, unspecified (principal); I10 Essential (primary) hypertension; Z85.038 Personal history of other malignant neoplasm of large intestine; Z86.718 Personal history of other venous thrombosis and embolism; Z87.442 Personal history of urinary calculi; Z98.84 Bariatric surgery status
CPT/HCPCS: 36415; 80053; 85025; 99283

== ENCOUNTER 2020-05-16 08:37 | Emergency (ER) | payer MEDICARE ==
[~2020-05-16] VITALS: Ht 188 cm; Wt 181.4 kg
[2020-05-16] MEDS ORDERED: SODIUM CHLORIDE 0.9% 1000ML 1,000 ML IV STA (08:56)
--- OUTSIDE RECORDS SUMMARY | 2020-05-16 09:12 | XMS REPORT | Clinical Summary ---
Author Author [facility] Address Unknown Phone Unavailable Care Team Providers Care Psychodramatist Name Role Phone Asked, No Pcp PCP [...] Morbid obesity with BMI of 40.0-44.9, adult 03/21/20 17 Metabolic acidosis 03/20/2017 Acute hypoxemic respiratory failure 03/20/2017 Acute pulmonary embolism 03/20/2017 Hypoxia 03/19/2017 Family History Medical History Relation Name Comments Cancer Father Dementia Maternal Aunt Cancer Mother Dementia Mother Heart failure Mother Relation Name Status Comments Father Maternal Aunt Mother Social History Date Tobacco Use Types Packs/Day Years Used Never Smoker Drinks/Week oz/Week Comments Alcohol Use No Sex Assigned at Date Recorded Not on file Industry Job Start Date Occupation Not on file Not on file Not on file Travel End Travel History Travel Start No recent travel history available. Last Filed Vital Signs Not on file Plan of Treatment Health Maintenance Due Date Last Done Comments COLONOSCOPY SCREENING 1996 SHINGLES VACCINES (#1) 1996 65+ PNEUMOCOCCAL VACCINE 2011 (1 of 2 - PCV13) INFLUENZA VACCINE 05/08/2020 Implants Device Identifier Shelf Expiration Date Model / Serial / L ot Implanted Type Area Manufactur er [id number] / / Catheter Angio Smelter Charger Ii 5fr 65cm Surgical N/A: N/A BSC Flush Hf Pig - [id number] Implants; PERIPHERAL Implanted: 03/31/2017 at [facility] Expanders; [facility] (Quantity not on file) Extenders; ON Surgical VASCULAR Wires CONSTANTINO [id number] / / Cook Celect [place] Navalign Vascular N/A: N/A COOK Uniset Vena Cava Filter - [id number] Filter PE RIPHERAL Implanted: 03/31/2017 at [facility] (Quantity not on file) ON Results Not on fileafter 05/16/2019 Insurance Type Payer Benefit Subscriber ID Effective Phone Address Plan / Dates Group PPO HUMANA MEDICARE HUMANA xxxxxxxxx 2017-P MEDICARE resent PPO/PFFS/[facility] Advance Directives For more information, please contact: [phone] Patient Teasel Setter Explanation Type Date Recorded Advance Directives, Living Will and Medical Power of Director Of Teaching And Learning Advance Directives, 04/08/2017 1:02 PM Living Will and Medical Power of Director Of Teaching And Learning Date Inactivated Comments Code Status Date Activated 03/25/2017 10:28 PM Full Code 03/20/2017 3:56 AM Code Status decision reached by: Patient
--- OUTSIDE RECORDS SUMMARY | 2020-05-16 09:13 | XMS REPORT | Continuity of Care Document ---
Author Author [facility] t Organization [facility] Address [address] [place] [address] Phone Unavailable Care Team Providers Care Radio Television Announcer Name Role Phone SARA LEON, ALFONZO PCP RUIZ, SOUAARTI Attphys Unavailable RUIZ, SOUHEIL Admphys Unavailable Payers Payer Name Policy Type Policy Number Effective Date Expiration Date S terrance [employer] [id number] 2019 00:00:00 [facility] Problems Condition Name Condition Details Condition Category Status Onset Date Resolution Date Last Treatment Date Treating Clinician Comments Source Pulmonary embolus Pulmonary embolus Disease Active 2017-05-25 00:00:00 Kenneth Ignacio Colonic mass Colonic mass Disease Active 2017-04-01 00:00:00 Kenneth Ignacio Rectal bleed Rectal bleed Disease Active 2017-03-29 00:00:00 Kenneth Ignacio Microcytic anemia Microcytic anemia Disease Active 2017-03-21 00:00:00 Kenneth Ignacio DVT (deep venous thrombosis) DVT (deep venous thrombosis) Disease Active 2017-03-21 00:00:00 Kenneth Ignacio Morbid obesity with BMI of 40.0-44.9, adult Morbid obe sity with BMI of 40.0- 44.9, adult Disease Active 2017-03-21 00:00:00 Kenneth Ignacio Metabolic acidosis Metabolic acidosis Disease Active 2017-03-20 00:00:0 0 Kenneth Ignacio Acute hypoxemic respiratory failure Acute hypoxemic respiratory failure Disease Active 2017-03-20 00:00:00 [place] [employer] Acute pulmonary embolism Acute pulmonary embolism Disease Acti ve 2017-03-20 00:00:[address] Hypoxia Hypoxia Disease Active 2017-03-19 00:00:00 Kenneth Ignacio Biliary calculus with cholecystitis Cholecystitis with cholelith iasis Problem Active [facility] Leukocytosis Leukocytosis Problem Active [facility] Gallstone pancreatitis Pancreatitis, gallstone Problem Active [facility] Dyspnea Dyspnea Problem Active [facility] Allergies, Adverse Reactions, Alerts Allergy Name Allergy Type Status Severity Reaction(s) Onset Date Inacti ve Date Treating Clinician Comments Source Penicillin Allergy to Substance Active 2019-12-01 00:00:00 [facility] Sulfa (Sulfonamide Antibiotics) Allergy to Substance Active 2019-12-01 00:00:00 [facility] Codeine Allergy to Substance Active 2019-12-01 00:00:00 [facility] Warfarin Allergy to Substance Active 2019-12-01 00:00:00 [facility] Codeine Propensity to adverse reactions to drug Active Rash 2007-06-19 00:00:00 Kenneth bhatti Penicillins Propensity to adverse reactions to drug Active Anaphylaxis 2007-06-19 00:00:00 Kenneth becerril Tetanus Toxoid Propensity to adverse reactions to drug Active Rash 2007-06-19 00:00:00 Kenneth bhatti Family History Family Member Diagnosis Comments Start Date Stop Date Source Natural father Cancer [facility] Maternal aunt Dementia [facility] Natural mother Cancer [facility] Natural mother Dementia [facility]odist Natural mother Heart failure Kenneth Ignacio Social History Social Habit Start Date Stop Date Quantity Comments Source Sex Assigned At Jono perezcodey Ignacio Alcohol intake 2017-08-21 00:00:00 2017-08-21 00:00:00 Current non-drinker of alcohol (finding) Kenneth Ignacio Smoking Status Start Date Stop Date Source Never smoker Kenneth bhatti Medications Ordered Medication Name Filled Medication Name Start Date Stop Da te Current Medication? Ordering Clinician Indication Dosage Frequency Signature (SIG) Comments Components Source olmesartan (BENICAR) 40 MG tablet 2017-08-21 14:14:00 Yes 40mg QD Take 40 mg by mouth daily. Kenneth Ignacio budesonide-formoterol (SYMBICORT) 160-4.5 mcg/actuation inha ler 2017-08-21 14:14:00 Yes 2{puff} Q.[id number] 3D Inhale 2 puffs 3 (three) times a day. [place] [employer] PRADAXA 150 mg capsu 2017-07-14 00:00:00 Yes TAKE ONE TABLET BY MOUTH TWICE DAILY. STOP WARFARIN Kenneth Díazist Cranberry Extract (Cranberry) 250 Mg Capsule Cranberry Extract (Cranberry) 250 Mg Capsule Yes 500 Daily [facility] Diphenhydramine Hcl (Benadryl) 25 Mg Capsule Diphenhyd ramine Hcl (Benadryl) 25 Mg Capsule Yes 50 Bedtime [facility] Furosemide (Lasix) 20 Mg Tablet Furosemide (Lasix) 20 Mg Tablet Yes 20 Daily [facility] Hydrocortisone 30 Gm Cr Hydrocortisone 30 Gm Cr Yes 1 Twice A Day as needed for Itching [facility] Loperamide Hcl (Imodium*) 2 Mg Cap Loperamide Hcl (Imodium*) 2 Mg Cap Yes 4 Three Times A Day [facility] Nystatin Nystatin Yes 1 Every 4 Hours as neede d for Redness [facility] Sertraline Hcl (Zoloft) 50 Mg Tablet Sertraline Hcl (Zoloft) 50 Mg Tablet Yes 100 Daily [facility] Spironolactone 25 Mg Tablet Spironolactone 25 Mg Tablet Yes 25 Daily [facility] Warfarin Sodium (Coumadin*) 3 Mg Tablet Warfarin Sodium (Cou madin*) 3 Mg Tablet Yes 3 Today At 5:00PM [facility] Warfarin Sodium (Coumadin) 5 Mg Tablet Warfarin Sodium (Coumadin ) 5 Mg Tablet Yes 10 Today At 5:00PM [facility] Dabigatran Etexilate Mesylate (Pradaxa) 150 Mg Capsule , 150 Mg Oral Dabigatran Etexilate Mesylate (Pradaxa) 150 Mg Capsule, 150 Mg Oral 201 06-12-20 00:00:00 No 150 Twice A Day [facility] Pnv With Ca,No.74/Iron/Fa ( Low Iron Tablet) 1 Each Tablet, 1 Tab Oral Pnv With Ca,No.74/Iron/Fa ( Low Iron Tablet) 1 Each Tablet, 1 Tab Oral 2019-02-24 00:00:00 No 1 Daily [facility] Polyethylene Glycol 3350 (Miralax) 17 Gm Powd.pack, 1 Packet Oral Polyethylene Glycol 3350 (Miralax) 17 Gm Powd.pack, 1 Packet Oral 2019-02-24 00: 00:00 No 1 Daily [facility] Procedures Procedure Date / Time Performed Performing Clinician [facility] e CT of abdomen and pelvis without contrast 2019-02-26 00:00:00 MALLY MAEMICHAEL ANISH [facility] Computed tomography of chest with contrast 2019-02-24 00:00: 00 DARLIN CLAY [facility] Plan of Care Planned Activity Planned Date Details Comments Source Future Scheduled Test 2020-05-08 00:00:00 INFLUENZA VACCINE [code = INFLUENZA VACCINE] [facility] Future Scheduled Test 2011 00:00:00 65+ PNEUMOCOCCAL V ACCINE (1 of 2 - PCV13) [code = 65+ PNEUMOCOCCAL VACCINE (1 of 2 - PCV13)] [facility] Future Scheduled Test 1996 00:00:00 COLONOSCOPY SCREEN ING [code = COLONOSCOPY SCREENING] [facility] Scheduled Test 1996 00:00:00 SHINGLES VACCINES (#1) [code = SHINGLES VACCINES (#1)] [facility] Encounters Start Date/Time End Date/Time Encounter Type Admission Type Att[facility] Facility Care Department Encounter ID Source 2019-12-01 18:46:00 2019-12-01 23:35:00 Departed Emergency Room [facility] [id number] [facility] 2019-02-24 17:10:00 2019-03-04 11:03:00 Discharged Inpatient 1 [facility] [id number] [facility] 2018-07-11 17:59:00 2018-07-22 13:32:00 Discharged Inpatient 1 [facility] [id number] [facility] 2017-11-16 03:43:00 2017-11-16 03:43:00 Registered Referred [facility] [id number] [facility] 2017-10-31 05:46:00 2017-11-09 17:41:00 Discharged Inpatient ER ALFONZO RUIZ [facility] [id number] [facility] Results Test Description Test Time Test Comments Results Result Comments Source Sodium Level 2019-12-01 20:09:00 Test Item Sodium Level (test code = 2951-2) 140 136-145 [facility]Potassium Adtaa5211-14-51 20:09:00* Test Item Value Reference Range Interpretation Comments Potassium Level (test code = 2823-3) 4.3 3.5-5.1 [facility] WorthChloride [id number] 20:09:00* Test Item Value Reference Range Interpretation Comments Chloride Level (test code = 2075-0) 109 98-107 H [facility] WorthCarbon Dioxide Rjtfy9120-21-70 20:09:00* Test Item Value Reference Range Interpretation Comments Carbon Dioxide Level (test code = 2028-9) 23 22-29 [facility] WorthAnion [id number] 20:09:00* Test Item Value Reference Range Interpretation Comments Anion Gap (test code = 19001-4) 12.3 8-16 [facility] Worth[facility] Urea Ipogqqgi5770-42-41 20:09:00* Test Item Value Reference Range Interpretation Comments Blood Urea Nitrogen (test code = 3094-0) 12 7-26 [facility]Creatinine2020-02-24 20:09:00* Test Item Value Reference Range Interpretation Comments Creatinine (test code = 2160-0) 0.79 0.72-1.25 [facility] WorthBUN/Creatinine Izpzl3498-29-05 20:09:00* Test Item Value Reference Range Interpretation Comments BUN/Creatinine Ratio (test code = 3097-3) 15 6-25 [facility] WorthEstimat Glomerular Filtration Rate 2019-12-01 20:09:00* Test Item Value Reference Range Interpretation Comments Estimat Glomerular Filtration Rate (test code = 685519878) > 60 >60 Ranges were taken from the National Kidney Disease Education Program and the [facility] Foundation literature.Reference ranges:60 or greater: Wfueyp34-04 ( for 3 consecutive months): Chronic kidney disease 15 or less: Kidney failureTexas Health Southwest Fort WorthGlucose Lfyei5528-37-54 20:09:00* Test Item Value Reference Range Interpretation Comments Glucose Level (test code = LPI1916) 84 74-118 [facility] WorthCalcium Vphpk4777-66-04 20:09:00* Test Item Value Reference Range Interpretation Comments Calcium Level (test code = 35475-9) 8.2 8.4-10.2 L [facility] WorthTotal Puusqhzhi3888-22-73 20:09:00* Test Item Value Reference Range Interpretation Comments Total Bilirubin (test code = 1975-2) 0.3 0.2-1.2 [facility] WorthAspartate Amino Transf (AST/SGOT) 2019-12-01 20:09:00* Test Item Value Reference Range Interpretation Comments Aspartate Amino Transf (AST/SGOT) (test code = Aspartate Amino Transf (AST/SGOT)) 24 5-34 [facility] WorthAlanine Aminotransferase (ALT/SGPT) 2019-12-01 20:09:00* Test Item Value Reference Range Interpretation Comments Alanine Aminotransferase (ALT/SGPT) (test code = 1742-6) 18 0-55 [facility] WorthTotal Jianeua5489-02-65 20:09:00* Test Item Value Reference Range Interpretation Comments Total Protein (test code = 2885-2) 7.7 6.5-8.1 [facility] WorthAlbumin2020-02-24 20:09:00* Test Item Value Reference Range Interpretation Comments Albumin (test code = 1751-7) 3.4 3.5-5.0 L [facility] WorthGlobulin2020-02-24 20:09:00* Test Item Value Reference Range Interpretation Comments Globulin (test code = 38302-8) 4.3 2.3-3.5 H [facility] WorthAlbumin/Globulin Mtopf7803-07-18 20:09:00 * Test Item Value Reference Range Interpretation Comments Albumin/Globulin Ratio (test code = 1759-0) 0.8 0.8-2.0 [facility] WorthAlkaline Cialnsrlyvl1309-37-58 20:09:00* Test Item Value Reference Range Interpretation Comments Alkaline Phosphatase (test code = 6768-6) 118 40-150 [facility] WorthWhite Blood Hmzgm4020-12-79 19:50:00* Test Item Value Reference Range Interpretation Comments White Blood Count (test code = 6690-2) 11.11 4.8-10.8 H [facility] WorthRed Blood Nsdko0201-73-51 19:50:00* Test Item Value Reference Range Interpretation Comments Red Blood Count (test code = 789-8) 5.57 4.3-5.7 [facility] WorthHemoglobin2020-02-24 19:50:00* Test Item Value Reference Range Interpretation Comments Hemoglobin (test code = 82565-9) 11.3 14.0-18.0 L [facility] WorthHematocrit2020-02-24 19:50:00* Test Item Value Reference Range Interpretation Comments Hematocrit (test code = 4544-3) 38.8 38.2-49.6 [facility] WorthMean Corpuscular Chnpae6989-49-84 19:50:00* Test Item Value Reference Range Interpretation Comments Mean Corpuscular Volume (test code = 787-2) 69.7 81-99 L [facility] WorthMean Corpuscular Ihfcxtutfb9462-49-91 19:50:00* Test Item Value Reference Range Interpretation Comments Mean Corpuscular Hemoglobin (test code = 785-6) 20.3 28-32 L [facility] WorthMean Corpuscular Hemoglobin Concent 2019-12-01 19:50:00* Test Item Value Reference Range Interpretation Comments Mean Corpuscular Hemoglobin Concent (test code = 786-4) 29.1 31-35 L [facility] WorthRed Cell Distribution Vxzmz7623-58-82 19:50:00* Test Item Value Reference Range Interpretation Comments Red Cell Distribution Width (test code = 63725-0) 20.6 11.7 -14.4 H [facility] WorthPlatelet Etknq2505-13-54 19:50:00* Test Item Value Reference Range Interpretation Comments Platelet Count (test code = 777-3) 326 140-360 [facility] WorthNeutrophils (%) (Auto)2019-12-01 19:50:00 * Test Item Value Reference Range Interpretation Comments Neutrophils (%) (Auto) (test code = 38908-8) 80.7 38.7-80.0 H [facility] WorthLymphocytes (%) (Auto)2019-12-01 19:50:00 * Test Item Value Reference Range Interpretation Comments Lymphocytes (%) (Auto) (test code = 736-9) 10.8 18.0-39.1 L [facility] WorthMonocytes (%) (Auto)2019-12-01 19:50:00* Test Item Value Reference Range Interpretation Comments Monocytes (%) (Auto) (test code = 5905-5) 6.5 4.4-11.3 [facility] WorthEosinophils (%) (Auto)2019-12-01 19:50:00 * Test Item Value Reference Range Interpretation Comments Eosinophils (%) (Auto) (test code = 713-8) 1.1 0.0-6.0 [facility] WorthBasophils (%) (Auto)2019-12-01 19:50:00* Test Item Value Reference Range Interpretation Comments Basophils (%) (Auto) (test code = 706-2) 0.4 0.0-1.0 [facility] WorthIM GRANULOCYTES %2019-12-01 19:50:00* Test Item Value Reference Range Interpretation Comments IM GRANULOCYTES % (test code = IM GRANULOCYTES %) 0.5 0.0- 1.0 [facility] WorthNeutrophils # (Auto)2019-12-01 19:50:00* Test Item Value Reference Range Interpretation Comments Neutrophils # (Auto) (test code = 751-8) 9.0 2.1-6.9 H [facility] WorthLymphocytes # (Auto)2019-12-01 19:50:00* Test Item Value Reference Range Interpretation Comments Lymphocytes # (Auto) (test code = 31069-1) 1.2 1.0-3.2 [facility] WorthMonocytes # (Auto)2019-12-01 19:50:00* Test Item Value Reference Range Interpretation Comments Monocytes # (Auto) (test code = 742-7) 0.7 0.2-0.8 [facility] WorthEosinophils # (Auto)2019-12-01 19:50:00* Test Item Value Reference Range Interpretation Comments Eosinophils # (Auto) (test code = 711-2) 0.1 0.0-0.4 [facility] WorthBasophils # (Auto)2019-12-01 19:50:00* Test Item Value Reference Range Interpretation Comments Basophils # (Auto) (test code = 704-7) 0.0 0.0-0.1 [facility] WorthAbsolute Immature Granulocyte (auto 2019-12-01 19:50:00* Test Item Value Reference Range Interpretation Comments Absolute Immature Granulocyte (auto (hunter t code = Absolute Immature Granulocyte (auto) 0.05 0-0.1 [facility] WorthProthrombin Hgxm2665-00-69 06:35:00* Test Item Value Reference Range Interpretation Comments Prothrombin Time (test code = 5902-2) 27.9 11.9-14.5 H [facility] WorthProthromb Time International Ratio 2019-03-04 06:35:00* Test Item Value Reference Range Interpretation Comments Prothromb Time International Ratio (test code = 6301-6) 2.52 Oral Anticoagulant Therapy INR Values:1. Low Intensity Therapy 1.5 - 2.02 . Moderate Intensity Therapy 2.0 - 3.03. High Intensity Therapy(1) 2.5 - 3. 54. High Intensity Therapy(2) 3.0 - 4.05. Panic Value INR > 5.0 [facility] WorthProthrombin Rcgo7147-28-22 06:35:00* Test Item Value Reference Range Interpretation Comments Prothrombin Time (test code = 5902-2) 27.9 11.9-14.5 H [facility] WorthProthromb Time International Ratio 2019-03-04 06:35:00* Test Item Value Reference Range Interpretation Comments Prothromb Time International Ratio (test code = 6301-6) 2.52 Oral Anticoagulant Therapy INR Values:1. Low Intensity Therapy 1.5 - 2.02 . Moderate Intensity Therapy 2.0 - 3.03. High Intensity Therapy(1) 2.5 - 3. 54. High Intensity Therapy(2) 3.0 - 4.05. Panic Value INR > 5.0 [facility] Ktgil0017-76-71 06:43:00* Test Item Value Reference Range Interpretation Comments Sodium Level (test code = 2951-2) 135 136-145 L [facility] WorthPotassium Gqvmt0999-01-52 06:43:00* Test Item Value Reference Range Interpretation Comments Potassium Level (test code = 2823-3) 4.2 3.5-5.1 [facility] WorthChloride Eskmh8961-70-59 06:43:00* Test Item Value Reference Range Interpretation Comments Chloride Level (test code = 2075-0) 102 98-107 [facility] WorthCarbon Dioxide Tzdbj3330-26-77 06:43:00* Test Item Value Reference Range Interpretation Comments Carbon Dioxide Level (test code = 2028-9) 27 22-29 [facility] WorthAnion Zvb5464-36-82 06:43:00* Test Item Value Reference Range Interpretation Comments Anion Gap (test code = 50028-8) 10.2 8-16 [facility] WorthBlood Urea Zqizjbwu0102-25-34 06:43:00* Test Item Value Reference Range Interpretation Comments Blood Urea Nitrogen (test code = 3094-0) 13 7-26 [facility] WorthCreatinine2019-05-27 06:43:00* Test Item Value Reference Range Interpretation Comments Creatinine (test code = 2160-0) 0.85 0.72-1.25 [facility] WorthBUN/Creatinine Yzelg1003-08-62 06:43:00* Test Item Value Reference Range Interpretation Comments BUN/Creatinine Ratio (test code = 3097-3) 15 - [facility] WorthEstimat Glomerular Filtration Rate 2019-03-03 06:43:00* Test Item Value Reference Range Interpretation Comments Estimat Glomerular Filtration Rate (test code = 733425379) > 60 >60 Ranges were taken from the National Kidney Disease Education Program and the [facility] Kid[facility] Foundation literature.Reference ranges:60 or greater: Pekmpp31-45 ( for 3 consecutive months): Chronic kidney disease 15 or less: Kidney failureCH[facility] St[facility] HospitalGlucose Ivcfx3827-66-48 06:43:00* Test Item Value Reference Range Interpretation Comments Glucose Level (test code = MMN0058) 95 74-118 [facility] WorthCalcium Sqqyi9204-44-89 06:43:00* Test Item Value Reference Range Interpretation Comments Calcium Level (test code = 19692-5) 8.9 8.4-10.2 [facility] WorthMagnesium Pfmhy3014-69-33 07:55:00* Test Item Value Reference Range Interpretation Comments Magnesium Level (test code = 97564-7) 2.1 1.3-2.1 [facility] WorthMagnesium Wnboi0406-86-24 07:55:00* Test Item Value Reference Range Interpretation Comments Magnesium Level (test code = 51080-6) 2.1 1.3-2.1 [facility] WorthBlood Ogritnn1289-84-71 14:18:00* Test Item Value Reference Range Interpretation Comments Blood Culture (test code = 95725143) NO GROWTH AFTER 5 DAYS, FINAL REPORT [facility] WorthBlood Jfvjyzc6400-98-11 14:18:00* Test Item Value Reference Range Interpretation Comments Blood Culture (test code = 87799973) NO GROWTH AFTER 5 DAYS, FINAL REPORT [facility] WorthCT ABDOMEN/PELVIS [id number] 21:13:00 [place] [address] Patient Name: GREG HARGROVE MR #: [id number] : 1945 Age/Sex: 73[id number] Req #: [id number] Adm Physician: ALFONZO RUIZ MD Ordered by: ANISH SIMMS MD Report #: [id number] Location: [facility]SURG[facility] Room/Bed: [facility] Procedure: [id number] CT/C T ABDOMEN/PELVIS WO Exam Date: Exam Time: REPORT STATUS: Signed EXAMINATION: CT of the abdomen and pelvis without contrast. TECHNIQUE: Helical CT images of the abdomen and pelvis were performed from the lung bases to the lesser trocha nters. No intravenous contrast was given per renal stone protocol. Coronal a nd sagittal reformatted images were obtained.Dose modulation, iterative recons truction, and/or weight based adjustment of the mA/kV was utilized to reduce t he radiation dose to as low as reasonably achievable. COMPARISON: None. CLINICAL HISTORY:Urinary tract infection DISCUSSION: Artifact al elly the right body secondary to habitus within the scanner. ABDOMEN/PELVI S: LOWER THORAX: Unremarkable. HEPATOBILIARY:No focal hepatic lesions . No biliary ductal dilation. Cholecystectomy. SPLEEN: No splenomegaly. PANCREAS: No focal masses or ductal dilatation. ADRENALS: No adrenal n odules. KIDNEYS/URETERS: No hydronephrosis, stones, or solid mass lesions. PELVIC ORGANS/BLADDER: The bladder is normal. PERITONEUM/RETROPERITO NEUM: No free air or fluid. LYMPH NODES: No intra-abdominal,retroperitoneal , pelvic or inguinal lymphadenopathy. VESSELS: IVC filter. GI TRACT: Bariatric surgery. Colonic diverticulosis without inflammatory change. B ONES AND SOFT TISSUES: Lower lumbar spondylosis. IMPRESSION: No acute CT finding. No calculi. Limited due to artifact. Signed by: Dr. Nano Fonseca M.D. on 02/26/2019 9:18 PM Dictated By: NANO FONSECA MD El ectronically Signed By: NANO FONSECA MD on 02/26/192117 Transcribed By: MERRY CRENSHAW on 02/26/192117 COPY TO: ANISH SIMMS MD Urine Culture 2019-02-26 08:09:00* Test Item Value Reference Range Interpretation Comments Urine Culture (test code = 630-4) Organism: ESCHERICHIA COLI [facility] WorthUrine Ttcuxup7383-04-08 08:09:00* Test Item Value Reference Range Interpretation Comments Urine Culture (test code = 630-4) No Result Data Provided [facility] WorthCreatine Kinase [id number] 14:41:00* Test Item Value Reference Range Interpretation Comments Creatine Kinase MB (test code = 11927-7) 1.20 0-5.0 [facility] WorthTroponin [id number] 14:41:00* Test Item Value Reference Range Interpretation Comments Troponin I (test code = NYV2373) < 0.001 0-0.300 [facility] WorthCreatine Kinase [id number] 14:41:00* Test Item Value Reference Range Interpretation Comments Creatine Kinase MB (test code = 04824-6) 1.20 0-5.0 [facility]-70 14:41:00* Test Item Value Reference Range Interpretation Comments Troponin I (test code = TMB9615) < 0.001 0-0.300 [facility] WorthCreatine Okilhq8868-30-42 14:36:00* Test Item Value Reference Range Interpretation Comments Creatine Kinase (test code = 2157-6) 119 30-200 [facility] WorthCreatine Esilih7454-63-88 14:36:00* Test Item Value Reference Range Interpretation Comments Creatine Kinase (test code = 2157-6) 119 30-200 [facility] WorthWhite Blood Nivur2537-01-07 06:02:00* Test Item Value Reference Range Interpretation Comments White Blood Count (test code = 6690-2) 6.42 4.8-10.8 [facility] WorthRed Blood Jshln6763-32-93 06:02:00* Test Item Value Reference Range Interpretation Comments Red Blood Count (test code = 789-8) 4.48 4.3-5.7 [facility] WorthHemoglobin2019-05-21 06:02:00* Test Item Value Reference Range Interpretation Comments Hemoglobin (test code = 31944-3) 9.6 14.0-18.0 L [facility] WorthHematocrit2019-05-21 06:02:00* Test Item Value Reference Range Interpretation Comments Hematocrit (test code = 4544-3) 32.1 38.2-49.6 L [facility] WorthMean Corpuscular Ujrohm5737-90-50 06:02:00* Test Item Value Reference Range Interpretation Comments Mean Corpuscular Volume (test code = 787-2) 71.7 81-99 L [facility] WorthMean Corpuscular Szqbcbdvbu0264-75-93 06:02:00* Test Item Value Reference Range Interpretation Comments Mean Corpuscular Hemoglobin (test code = 785-6) 21.4 28-32 L [facility] WorthMean Corpuscular Hemoglobin Concent 2019-02-25 06:02:00* Test Item Value Reference Range Interpretation Comments Mean Corpuscular Hemoglobin Concent (test code = 786-4) 29.9 31-35 L [facility] WorthRed Cell Distribution Kevcv8125-26-38 06:02:00* Test Item Value Reference Range Interpretation Comments Red Cell Distribution Width (test code = 15503-1) 18.9 11.7 -14.4 H [facility] WorthPlatelet Uupax9417-31-94 06:02:00* Test Item Value Reference Range Interpretation Comments Platelet Count (test code = 777-3) 362 140-360 H [facility] WorthNeutrophils (%) (Auto)2019-02-25 06:02:00 * Test Item Value Reference Range Interpretation Comments Neutrophils (%) (Auto) (test code = 88628-9) 68.5 38.7-80.0 [facility] WorthLymphocytes (%) (Auto)2019-02-25 06:02:00 * Test Item Value Reference Range Interpretation Comments Lymphocytes (%) (Auto) (test code = 736-9) 16.7 18.0-39.1 L [facility] WorthMonocytes (%) (Auto)2019-02-25 06:02:00* Test Item Value Reference Range Interpretation Comments Monocytes (%) (Auto) (test code = 5905-5) 10.3 4.4-11.3 [facility] WorthEosinophils (%) (Auto)2019-02-25 06:02:00 * Test Item Value Reference Range Interpretation Comments Eosinophils (%) (Auto) (test code = 713-8) 3.6 0.0-6.0 [facility] WorthBasophils (%) (Auto)2019-02-25 06:02:00* Test Item Value Reference Range Interpretation Comments Basophils (%) (Auto) (test code = 706-2) 0.6 0.0-1.0 [facility] WorthIM GRANULOCYTES %2019-02-25 06:02:00* Test Item Value Reference Range Interpretation Comments IM GRANULOCYTES % (test code = IM GRANULOCYTES %) 0.3 0.0- 1.0 [facility] WorthNeutrophils # (Auto)2019-02-25 06:02:00* Test Item Value Reference Range Interpretation Comments Neutrophils # (Auto) (test code = 751-8) 4.4 2.1-6.9 [facility] WorthLymphocytes # (Auto)2019-02-25 06:02:00* Test Item Value Reference Range Interpretation Comments Lymphocytes # (Auto) (test code = 19956-4) 1.1 1.0-3.2 [facility] WorthMonocytes # (Auto)2019-02-25 06:02:00* Test Item Value Reference Range Interpretation Comments Monocytes # (Auto) (test code = 742-7) 0.7 0.2-0.8 [facility] WorthEosinophils # (Auto)2019-02-25 06:02:00* Test Item Value Reference Range Interpretation Comments Eosinophils # (Auto) (test code = 711-2) 0.2 0.0-0.4 [facility] WorthBasophils # (Auto)2019-02-25 06:02:00* Test Item Value Reference Range Interpretation Comments Basophils # (Auto) (test code = 704-7) 0.0 0.0-0.1 [facility] WorthAbsolute Immature Granulocyte (auto 2019-02-25 06:02:00* Test Item Value Reference Range Interpretation Comments Absolute Immature Granulocyte (auto (hunter t code = Absolute Immature Granulocyte (auto) 0.02 0-0.1 [facility] Itdeqaoav2599-77-70 06:01:00* Test Item Value Reference Range Interpretation Comments Total Bilirubin (test code = 1975-2) 0.5 0.2-1.2 [facility] WorthAspartate Amino Transf (AST/SGOT) 2019-02-25 06:01:00* Test Item Value Reference Range Interpretation Comments Aspartate Amino Transf (AST/SGOT) (test code = Aspartate Amino Transf (AST/SGOT)) 18 5-34 [facility] WorthAlanine Aminotransferase (ALT/SGPT) 2019-02-25 06:01:00* Test Item Value Reference Range Interpretation Comments Alanine Aminotransferase (ALT/SGPT) (test code = 1742-6) 14 0-55 [facility] WorthTotal Vxjdygi7052-94-43 06:01:00* Test Item Value Reference Range Interpretation Comments Total Protein (test code = 2885-2) 6.8 6.5-8.1 [facility] WorthAlbumin2019-05-21 06:01:00* Test Item Value Reference Range Interpretation Comments Albumin (test code = 1751-7) 2.6 3.5-5.0 L [facility] WorthGlobulin2019-05-21 06:01:00* Test Item Value Reference Range Interpretation Comments Globulin (test code = 22507-0) 4.2 2.3-3.5 H [facility] WorthAlbumin/Globulin Awzjw3280-55-90 06:01:00 * Test Item Value Reference Range Interpretation Comments Albumin/Globulin Ratio (test code = 1759-0) 0.6 0.8-2.0 L [facility] WorthAlkaline Gfjifetgmpa5870-66-05 06:01:00* Test Item Value Reference Range Interpretation Comments Alkaline Phosphatase (test code = 6768-6) 92 40-150 [facility] WorthCHEST SINGLE (PORTABLE)2019-02-25 05:29:00 [place] [address] Patient Name: GREG HARGROVE MR #: [id number] : 1945 Age/Sex: 73/M Req #: [id number] Adm Physician: ALFONZO RUIZ MD Ordered by: DARLIN CLAY ORGANIZATIONAL EFFECTIVENESS CONSULTANT Report #: [id number] Location: [facility]/SURG3 Room/Bed: [facility] Procedure: 04 DX/CHEST SINGLE (PORTABLE) Exam Date: Exam Time: REPORT STATUS: Signed Examinat ion: Single AP view of the chest. COMPARISON: February 24, 2019 INDICATION: Shortness of breath DISCUSSION: Lines/tubes: None. Lungs: Central venous congestion. No edema or pneumonia. Pleura: No pleural effu vince or pneumothorax. Heart and mediastinum: Cardiomegaly Bones and s oft tissues: No acute bony abnormalities. IMPRESSION: Cardiomeg joy with central venous congestion Signed by: Dr. Nano Fonseca M.D. on 5:30 AM Dictated By: NANO FONSECA MD 9 Transcribed By: PAKO on 02/25/1903 06 COPY TO: DARLIN CLAY ORGANIZATIONAL EFFECTIVENESS CONSULTANT CT CHEST [id number] 16:27:00 [address], [place], [place] [address] Patient Name: GREG HARGROVE MR #: [id number] : 1945 Age/Sex: 73/M Req #: [id number] Adm Physician: Ordered by: DARLIN CLAY NP Report #: [id number] Location: ER Room/Bed: Procedure: [id number] CT/CT CHEST W Exam Date: 02/24/19 Exam Time: 1613 REPORT STATUS: Signed EXAM: CT Ch est WITH contrast (PE Protocol) INDICATION: r/o PE c/o SOB [id number] 161 Y COMPARISON: Chest CT dated 07/11/2018 TECHNIQUE: Chest was scanned utilizing a multidetector helical scanner from the lung apex throu gh the level of the diaphragm after administration of IV contrast. Thin sectio n reconstructions were obtained with special concentration on the pulmonary ar teries. Coronal and sagittal reformations were obtained. Dose modulation, iter ative reconstruction, and/or weight based adjustment of the mA/kV was utilized to reduce the radiation dose to as low as reasonably achievable. Pulmonary em bolism protocol was performed. IV CONTRAST: 100 mL of Isovue-370 COM PLICATIONS: None RADIATION DOSE: Total DLP: 649.24 mGy*cm Es timated effective dose: (DLP x 0.014 x size factor) mSv CTDIvol has been reviewed. It is below the limits set by the Radiation Protocol Committee (RPC) . FINDINGS: LINES/ TUBES: None. LUNGS AND AIRWAYS: Suboptimal opa cification of the pulmonary arteries. Within this context, no definite central pulmonary embolism visualized. Questionable filling defect within subsegmental right lower lobe pulmonary artery (series 2, image 64). Evaluation of the tae ngs are limited due to respiratory motion. Focal small area of right upper lob e patchy opacities (series 3, image 50). 3 mm groundglass right upper lobe nod ule (series 3, image 43). Pulmonary vascular congestion. Airways are normal. PLEURA: The pleural spaces are clear. HEART AND MEDIASTINUM: The thyroid gland is normal. No mediastinal, hilar or axillary lymphadenopathy. The he art is enlarged. There is no pericardial effusion. . Main pulmonary arter y measures 4 cm, suggestive of pulmonary hypertension. Ectatic ascending thora cic aorta measuring 4.3 cm at the level of the right pulmonary artery. Mild at herosclerotic calcification of aorta and coronary arteries. UPPER ABDOMEN : Evidence of gastric surgery. Small sliding hiatal hernia. Cholecystectomy. A nterior mid upper abdomen bowel anastomosis. BONES: The visualized bony tho rax is within normal limits. SOFT TISSUES: Unremarkable. IMPRESSION: Very limited study due to suboptimal opacification of the pulmonary arteries. Within this context, no definite central pulmonary embolism visualized. Limited for evaluation of segmental, subsegmental, and some lobar branches. If there is high clinical concern for pulmonary embolism, consider ventilation/perfusion Nuclear Medicine scan for further evaluation. Questionable filling defect within right lower lobe subsegmental branch, could be artifactual or residual old embolism. Focal area of mild right upper lobe opacification, could represent developing pneumonia. Cardiomegaly and pulmonary vascular conge stion. Signed by: Dr. Geo Bahena MD on 02/24/2019 4:44 PM Dictate d By: GEO BAHENA MD 1 644 Transcribed By: PAKO on 02/24/19 4678 COPY TO: DARLIN CLAY [employer]GANIZATIONAL EFFECTIVENESS CONSULTANT Urine [id number] 15:03:00* Test Item Value Reference Range Interpretation Comments Urine WBC (test code = 5821-4) 11-20 0-5 H [facility] WorthUrine LTL4105-98-32 15:03:00* Test Item Value Reference Range Interpretation Comments Urine RBC (test code = 72005-1) 0-5 0-5 [facility] WorthUrine Eajiwrjz6273-53-27 15:03:00* Test Item Value Reference Range Interpretation Comments Urine Bacteria (test code = 82714-9) MANY NONE H [facility] WorthUrine Epithelial Ciqan2912-65-46 15:03:00 * Test Item Value Reference Range Interpretation Comments Urine Epithelial Cells (test code = 87119-4) NONE NONE [facility] WorthUrine KRC7053-89-26 15:03:00* Test Item Value Reference Range Interpretation Comments Urine WBC (test code = 5821-4) 11-20 0-5 H [facility] WorthUrine QSD7436-60-51 15:03:00* Test Item Value Reference Range Interpretation Comments Urine RBC (test code = 82868-0) 0-5 0-5 [facility] WorthUrine Wlkxaowm1097-14-44 15:03:00* Test Item Value Reference Range Interpretation Comments Urine Bacteria (test code = 75851-1) MANY NONE H [facility] WorthUrine Epithelial Brfcq8020-10-48 15:03:00 * Test Item Value Reference Range Interpretation Comments Urine Epithelial Cells (test code = 07792-8) NONE NONE [facility] WorthB-Type Natriuretic Bjhvvza6298-72-33 14:53:00* Test Item Value Reference Range Interpretation Comments B-Type Natriuretic Peptide (test code = 53127-5) 28.0 0-100 [facility] WorthB-Type Natriuretic Vgavvgu9711-11-28 14:53:00* Test Item Value Reference Range Interpretation Comments B-Type Natriuretic Peptide (test code = 49708-6) 28.0 0-100 [facility] WorthUrine Wsanb4581-76-01 14:52:00* Test Item Value Reference Range Interpretation Comments Urine Color (test code = 5778-6) YELLOW YELLOW [facility] WorthUrine Ulaelhi9830-57-81 14:52:00* Test Item Value Reference Range Interpretation Comments Urine Clarity (test code = 83769-4) HAZY CLEAR [facility] WorthU[facility] Specific Zwtcssa5668-58-23 14:52:00 * Test Item Value Reference Range Interpretation Comments Urine Specific [place] (test code = 5811-5) 1.020 1.010-1.02 5 [facility] WorthUrine cV6186-33-57 14:52:00* Test Item Value Reference Range Interpretation Comments Urine pH (test code = 84444-5) 6 5-7 [facility] Worth[facility] Leukocyte Cibhcnan9196-35-60 14:52:00* Test Item Value Reference Range Interpretation Comments Urine Leukocyte Esterase (test code = 5799-2) 1+ NEGATIVE H [facility] WorthU[facility] Nuiaaec5520-74-98 14:52:00* Test Item Value Reference Range Interpretation Comments Urine Nitrite (test code = 37392-7) POSITIVE NEGATIVE H [facility] WorthUrine Esrygxq0401-90-19 14:52:00* Test Item Value Reference Range Interpretation Comments Urine Protein (test code = 5804-0) NEGATIVE NEGATIVE [facility] Worth[facility] Glucose (UA)2019-02-24 14:52:00* Test Item Value Reference Range Interpretation Comments Urine Glucose (UA) (test code = 2349-9) NEGATIVE NEGATIVE [facility] WorthUrine Lsawvwc6846-13-33 14:52:00* Test Item Value Reference Range Interpretation Comments Urine Ketones (test code = 31570-7) NEGATIVE NEGATIVE [facility] WorthU[facility] Iejkfdfzwjcp4677-00-98 14:52:00* Test Item Value Reference Range Interpretation Comments Urine Urobilinogen (test code = 70819-3) 1 0.2-1 [facility] WorthU[facility] Nwyojevwm2531-14-68 14:52:00* Test Item Value Reference Range Interpretation Comments Urine Bilirubin (test code = 1978-6) NEGATIVE NEGATIVE [facility] WorthU[facility] Dbzfi4042-91-28 14:52:00* Test Item Value Reference Range Interpretation Comments Urine Blood (test code = 14609-3) TRACE NEGATIVE H [facility] WorthU[facility] Qzqjx8838-35-96 14:52:00* Test Item Value Reference Range Interpretation Comments Urine Color (test code = 5778-6) YELLOW YELLOW [facility] WorthUrine Jhkueey2753-86-70 14:52:00* Test Item Value Reference Range Interpretation Comments Urine Clarity (test code = 89699-4) HAZY CLEAR [facility] WorthU[facility] Specific Kijosaj4085-69-09 14:52:00 * Test Item Value Reference Range Interpretation Comments Urine Specific [place] (test code = 5811-5) 1.020 1.010-1.02 5 [facility] WorthUrine hM5317-21-64 14:52:00* Test Item Value Reference Range Interpretation Comments Urine pH (test code = 01740-3) 6 5-7 [facility] Worth[facility] Leukocyte Jxxazgcc8557-83-38 14:52:00* Test Item Value Reference Range Interpretation Comments Urine Leukocyte Esterase (test code = 5799-2) 1+ NEGATIVE H [facility] WorthUrine Euwlovz6606-17-32 14:52:00* Test Item Value Reference Range Interpretation Comments Urine Nitrite (test code = 55521-2) POSITIVE NEGATIVE H [facility] WorthU[facility] Xgsenqn0476-53-47 14:52:00* Test Item Value Reference Range Interpretation Comments Urine Protein (test code = 5804-0) NEGATIVE NEGATIVE [facility] Glucose (UA)2019-02-24 14:52:00* Test Item Value Reference Range Interpretation Comments Urine Glucose (UA) (test code = 2349-9) NEGATIVE NEGATIVE [facility] WorthU[facility] Jrvabtn9582-08-64 14:52:00* Test Item Value Reference Range Interpretation Comments Urine Ketones (test code = 84417-8) NEGATIVE NEGATIVE [facility] WorthU[facility] Pwjhleftthxs5790-39-01 14:52:00* Test Item Value Reference Range Interpretation Comments Urine Urobilinogen (test code = 55978-3) 1 0.2-1 [facility] WorthUrine Efnvoscxj2507-83-41 14:52:00* Test Item Value Reference Range Interpretation Comments Urine Bilirubin (test code = 1978-6) NEGATIVE NEGATIVE [facility] WorthU[facility] Fhzvt7113-19-03 14:52:00* Test Item Value Reference Range Interpretation Comments Urine Blood (test code = 18393-3) TRACE NEGATIVE H [facility] WorthAmylase Eefkk1526-51-34 14:46:00* Test Item Value Reference Range Interpretation Comments Amylase Level (test code = 1798-8) 25 25-125 [facility] WorthLipase2019-05-20 14:46:00* Test Item Value Reference Range Interpretation Comments Lipase (test code = 3040-3) 11 [facility] WorthAmylase Vmdrc6989-69-42 14:46:00* Test Item Value Reference Range Interpretation Comments Amylase Level (test code = 1798-8) 25 25-125 [facility] WorthLipase2019-05-20 14:46:00* Test Item Value Reference Range Interpretation Comments Lipase (test code = 3040-3) 78 [facility] WorthCHEST SINGLE (PORTABLE)2019-02-24 14:42:00 [facility] [address] [place] [address] Patient Name: GREG HARGROVE MR #: [id number] : 1945 Age/Sex: 73/M Req #: [id number] Adm Physician: Ordered by: DARLIN CLAY ORGANIZATIONAL EFFECTIVENESS CONSULTANT Report #: [id number] Location: ER Room/Bed: Procedure: [id number] DX/CHEST SINGLE (PORTABLE) Exam Date: 02/24/19 Exam Time: 1415 REPORT STATUS: Signed EXAMINATION: CHEST SINGLE (PORTABLE) INDICATION: Dyspnea, edema COMPARISON: Chest radiograph 07/13/2018. FINDINGS: TUBES and LINES: None. LUNGS: Lungs are moderately inflated. Linear subsegmental atelecta sis in the right lower lung. There is no evidence of pneumonia or pulmonary e barrera. PLEURA: No pleural effusion or pneumothorax. HEART AND MEDIAST INUM: The cardiomediastinal silhouette is mildly enlarged. There is prominenc e of the left main pulmonary artery, unchanged from the prior study, suggestiv e of pulmonary arterial hypertension. BONES AND SOFT TISSUES: No acute os seous abnormality. UPPER ABDOMEN: No free air under the diaphragm. IMPRESSION: No acute radiographic abnormality. Signed by: Dr. Christi serrano MD on 02/24/2019 2:52 PM Dictated By: CHRISTI PARRY MD Electronically Si gned By: CHRISTI PARRY MD on 02/24/191451 Transcribed By: PAKO on 02/24/19 145 2 COPY TO: DARLIN CLAY NP Lactic Acid Johgn3891-99-70 14:38:00* Test Item Value Reference Range Interpretation Comments Lactic Acid Level (test code = Lactic Acid Level) 15.4 4.5- 19.8 [facility] WorthLactic Acid Ateyd7558-59-10 14:38:00* Test Item Value Reference Range Interpretation Comments Lactic Acid Level (test code = Lactic Acid Level) 15.4 4.5- 19.8 [facility] WorthActivated Partial Thromboplast Time 2019-02-24 14:34:00* Test Item Value Reference Range Interpretation Comments Activated Partial Thromboplast Time (test code = 44963-5) 46.2 23.8-35.5 H [facility] WorthActivated Partial Thromboplast Time 2019-02-24 14:34:00* Test Item Value Reference Range Interpretation Comments Activated Partial Thromboplast Time (test code = 11237-6) 46.2 23.8-35.5 H [facility] WorthPlatelet Iekhbvxb5899-46-14 13:35:00* Test Item Value Reference Range Interpretation Comments Platelet Estimate (test code = 53930-4) ADEQUATE [facility] WorthPlatelet Morphology Aleksvn9831-41-53 13:35:00* Test Item Value Reference Range Interpretation Comments Platelet Morphology Comment (test code = 05553-9) NORMAL [facility] WorthHypochromasia2018-10-15 13:35:00* Test Item Value Reference Range Interpretation Comments Hypochromasia (test code = 728-6) MODERATE [facility] WorthPoikilocytosis2018-10-15 13:35:00* Test Item Value Reference Range Interpretation Comments Poikilocytosis (test code = 779-9) SLIGHT [facility] WorthAnisocytosis2018-10-15 13:35:00* Test Item Value Reference Range Interpretation Comments Anisocytosis (test code = 702-1) MODERATE [facility] WorthRed Cell Morphology Qlyzswd9438-42-12 13:35:00* Test Item Value Reference Range Interpretation Comments Red Cell Morphology Comment (test code = 6742-1) ABNORMAL [facility] WorthPlatelet Rpwkilvh7821-03-95 13:35:00* Test Item Value Reference Range Interpretation Comments Platelet Estimate (test code = 78066-1) ADEQUATE [facility] WorthPlatelet Morphology Wqfhjbc6540-31-15 13:35:00* Test Item Value Reference Range Interpretation Comments Platelet Morphology Comment (test code = 02127-8) NORMAL [facility] WorthHypochromasia2018-10-15 13:35:00* Test Item Value Reference Range Interpretation Comments Hypochromasia (test code = 728-6) MODERATE [facility] WorthPoikilocytosis2018-10-15 13:35:00* Test Item Value Reference Range Interpretation Comments Poikilocytosis (test code = 779-9) SLIGHT [facility] WorthAnisocytosis2018-10-15 13:35:00* Test Item Value Reference Range Interpretation Comments Anisocytosis (test code = 702-1) MODERATE [facility] WorthRed Cell Morphology Dvlmnin1915-50-32 13:35:00* Test Item Value Reference Range Interpretation Comments Red Cell Morphology Comment (test code = 6742-1) ABNORMAL [facility] WorthAnti-Thrombin III Lhftrpcd1699-29-44 13:08:00* Test Item Value Reference Range Interpretation Comments Anti-Thrombin III Activity (test code = 3174-0) 105 75-135 Direct Xa inhibitor anticoagulants such as rivaroxaban,apixaban and edoxaban josselin l lead to spuriously elevatedantithrombin activity levels possibly masking a def iciency.[facility] WorthHomocysteine2018-10-15 13:08:00* Test Item Value Reference Range Interpretation Comments Homocysteine (test code = 29461-3) 11.0 0.0-15.0 [facility] WorthProtein C Eyqyoovz1231-92-66 13:08:00* Test Item Value Reference Range Interpretation Comments Protein C Activity (test code = 6007-9) 86 73-180 [facility] WorthFree Protein N1951-65-82 13:08:00* Test Item Value Reference Range Interpretation Comments Free Protein S (test code = TTC9355) 81 57-157 This test was developed and its performance characteristicsdetermined by [employer] . It has not been cleared orapproved by the Food and Drug Administration.[facility] WorthActivated Protein C Dwilsxoktd-CEGI9880-81-15 13:08:00* Test Item Value Reference Range Interpretation Comments Activated Protein C Resistance-APTT (test code = 45259-5) 2.7 2.2-3.5 The APCR result may be falsely increased (masking anabnormal, low APCR result) i n patients on direct Xainhibitor (e.g., rivaroxaban, apixaban, edoxaban) or adir ect thrombin inhibitor (e.g., dabigatran) anticoagulanttherapy due to assay inte rference by these drugs.[facility] WorthPlasminogen Qnudhouc9965-84-78 13:08:00* Test Item Value Reference Range Interpretation Comments Plasminogen Activity (test code = 5970-9) 119 70-150 [facility] WorthFactor II DNA Jpcqscdg5839-81-56 13:08:00 * Test Item Value Reference Range Interpretation Comments Factor II DNA Analysis (test code = SRX7716) Comment . NEGATIVENo mutation identified.Comment:A point mutation ([id number]) in the factor II (prothrombin)gene is the second most common cause of inheritedthrombophilia. The incidence of this mutation in the [place] population is about 2% and i n the AfricanAmerican population it is approximately 0.5%. This mutationis rare in the and population. Beingheterozygous for a prothrombin mutation increases the riskfor developing venous thrombosis about 2 to 3 times abovethe general population risk. Being homozygous for theprothrombin gene mutat ion increases the relative risk forvenous thrombosis further, although it is not yet known howmuch further the risk is increased. In women heterozygousfor the p rothrombin gene mutation, the use of estrogencontaining oral contraceptives incr eases the relative riskof venous thrombosis about 16 times and the risk ofdevelo ping cerebral thrombosis is also significantlyincreased. In the prothr ombin gene mutationincreases risk for venous thrombosis and may increaserisk for stillbirth, placental abruption, pre-eclampsia andfetal growth restriction. If the patient possesses two ormore congenital or acquired thrombophilic risk facto rs, therisk for thrombosis may rise to more than the sum of therisk ratios for t he individual mutations. This assaydetects only the prothrombin D29276D mutation and doesnot measure genetic abnormalities elsewhere in thegenome. Other thrombo tic risk factors may be pursuedthrough systematic clinical laboratory analysis. Thesefactors include the R506Q (Le[place]) mutation in the Factor Vgene, plasma patsy ocysteine levels, as well as testing fordeficiencies of antithrombin III, protei n C and protein S.Genetic Counselors are available for health care providersto d peacehealthuss results at [phone] ([phone]).Methodology:DNA analysis of the Factor I I gene was performed by PCRamplification followed by restriction analysis. Thedi agnostic sensitivity is >99% for both. All the tests mustbe combined with clinical information for the most accurateinterpretation. Molecular-based testing is highly accurate,but as in any laboratory test, diagnostic errors may occur.This test was developed and its performance characteristicsdetermined by [employer]. It has not been cleared or approvedby the Food and Drug Administration.Poort SR, et al. Blood. 1996; 88:3410-4169.Kyler EA. Circulation. 2004; 110:e15-e18.Julius I, et al. Arterioscler Thromb Vasc Biol. 1999;19:700-703.Carmelo Howard, PhD, Tona Betancourt, PhD, Hansel Milner MJavierS., PhD, Toni Muhammad, PhD, Dexter Yeboah, PhD, Lux Washington, PhD, FACMGPerformed at: [address] [id number] Director: Adan Carrillo MD, Phone: [phone] at: [facility] [place], [place] [id number] Director: Yung Contreras MD, Phone: [phone] at: [id number] [place], [place] [id number] Director: Morenita Duncan MD, Phone: [phone] Health Southwest Fort WorthAnti-Thrombin III Wbhcpphj5583-75-00 13:08:00* Test Item Value Reference Range Interpretation Comments Anti-Thrombin III Activity (test code = 3174-0) 105 75-135 Direct Xa inhibitor anticoagulants such as rivaroxaban,apixaban and edoxaban josselin l lead to spuriously elevatedantithrombin activity levels possibly masking a def iciency.[facility] WorthHomocysteine2018-10-15 13:08:00* Test Item Value Reference Range Interpretation Comments Homocysteine (test code = 37863-8) 11.0 0.0-15.0 [facility] Fort WorthProtein C Yxrvgmth6363-21-22 13:08:00* Test Item Value Reference Range Interpretation Comments Protein C Activity (test code = 6007-9) 86 73-180 [facility] Fort WorthFree Protein L3759-89-86 13:08:00* Test Item Value Reference Range Interpretation Comments Free Protein S (test code = BSN2449) 81 57-157 This test was developed and its performance characteristicsdetermined by [employer] . It has not been cleared orapproved by the Food and Drug Administration.[facility] Fort WorthActivated Protein C Nphxzmvvui-UONW0929-64-15 13:08:00* Test Item Value Reference Range Interpretation Comments Activated Protein C Resistance-APTT (test code = 48756-1) 2.7 2.2-3.5 The APCR result may be falsely increased (masking anabnormal, low APCR result) i n patients on direct Xainhibitor (e.g., rivaroxaban, apixaban, edoxaban) or adir ect thrombin inhibitor (e.g., dabigatran) anticoagulanttherapy due to assay inte rference by these drugs.[facility] Southwest Fort WorthPlasminogen Uypzjemn6746-24-94 13:08:00* Test Item Value Reference Range Interpretation Comments Plasminogen Activity (test code = 5970-9) 119 70-[address] [facility] HospitalFactor II DNA Hssvprho4212-50-46 13:08:00 * Test Item Value Reference Range Interpretation Comments Factor II DNA Analysis (test code = XFZ1587) Comment . NEGATIVENo mutation identified.Comment:A point mutation ([id number]) in the factor II (prothrombin)gene is the second most common cause of inheritedthrombophilia. The incidence of this mutation in the [place] population is about 2% and i n the AfricanAmerican population it is approximately 0.5%. This mutationis rare in the and population. Beingheterozygous for a prothrombin mutation increases the riskfor developing venous thrombosis about 2 to 3 times abovethe general population risk. Being homozygous for theprothrombin gene mutat ion increases the relative risk forvenous thrombosis further, although it is not yet known howmuch further the risk is increased. In women heterozygousfor the p rothrombin gene mutation, the use of estrogencontaining oral contraceptives incr eases the relative riskof venous thrombosis about 16 times and the risk ofdevelo ping cerebral thrombosis is also significantlyincreased. In the prothr ombin gene mutationincreases risk for venous thrombosis and may increaserisk for stillbirth, placental abruption, pre-eclampsia andfetal growth restriction. If the patient possesses two ormore congenital or acquired thrombophilic risk facto rs, therisk for thrombosis may rise to more than the sum of therisk ratios for t he individual mutations. This assaydetects only the prothrombin Q97961P mutation and doesnot measure genetic abnormalities elsewhere in thegenome. Other thrombo tic risk factors may be pursuedthrough systematic clinical laboratory analysis. Thesefactors include the R506Q ([place]) mutation in the Factor Vgene, plasma patsy ocysteine levels, as well as testing fordeficiencies of antithrombin III, protei n C and protein S.Genetic Counselors are available for health care providersto d devuss results at [phone] ([phone]).Methodology:DNA analysis of the Factor I I gene was performed by PCRamplification followed by restriction analysis. Thedi agnostic sensitivity is >99% for both. All the tests mustbe combined with clinical information for the most accurateinterpretation. Molecular-based testing is highly accurate,but as in any laboratory test, diagnostic errors may occur.This test was developed and its performance characteristicsdetermined by [facility]. It has not been cleared or approvedby the Food and Drug Administration.Darriont SR, et al. Blood. 1996; 88:3468-5787.Kyler STARK. Circulation. 2004; 110:e15-e18.Julius I, et al. Arterioscler Thromb Vasc Biol. 1999;19:700-703.Carmelo Howard, PhD, Tona Betancourt, PhD, James SoloSJavier, PhD, Toni Muhammad, PhD, Dexter Yeboah, PhD, Lux Washington, PhD, FACMGPerformed at: [address] [id number] Director: Adan Carrillo MD, Phone: [phone] at: [address] [id number] Director: Yung Contreras MD, Phone: [phone] at: [place] [id number] [place], [place] [id number] Director: Morenita Duncan MD, Phone: [phone] Health Southwest Fort WorthProthrombin Time 2018-07-22 08:42:00* Test Item Value Reference Range Interpretation Comments Prothrombin Time (test code = 5902-2) 28.2 11.9-14.5 H [facility] WorthProthromb Time International Ratio 2018-07-22 08:42:00* Test Item Value Reference Range Interpretation Comments Prothromb Time International Ratio (test code = 6301-6) 2.43 Oral Anticoagulant Therapy INR Values:1. Low Intensity Therapy 1.5 - 2.02 . Moderate Intensity Therapy 2.0 - 3.03. High Intensity Therapy(1) 2.5 - 3. 54. High Intensity Therapy(2) 3.0 - 4.05. Panic Value INR > 5.0 [facility] WorthWhite Blood Qnwwd1491-57-10 07:03:00* Test Item Value Reference Range Interpretation Comments White Blood Count (test code = 6690-2) 5.87 4.8-10.8 [facility] WorthRed Blood Bjjqk6374-73-90 07:03:00* Test Item Value Reference Range Interpretation Comments Red Blood Count (test code = 789-8) 4.84 4.3-5.7 [facility] WorthHemoglobin2018-10-15 07:03:00* Test Item Value Reference Range Interpretation Comments Hemoglobin (test code = 84013-5) 9.3 14.0-18.0 L [facility] WorthHematocrit2018-10-15 07:03:00* Test Item Value Reference Range Interpretation Comments Hematocrit (test code = 4544-3) 32.2 38.2-49.6 L [facility] Fort WorthMean Corpuscular Fytqiy2092-71-72 07:03:00* Test Item Value Reference Range Interpretation Comments Mean Corpuscular Volume (test code = 787-2) 66.5 81-99 L [facility] WorthMean Corpuscular Bpgfiarkre1355-05-95 07:03:00* Test Item Value Reference Range Interpretation Comments Mean Corpuscular Hemoglobin (test code = 785-6) 19.2 28-32 L [facility] Fort WorthMean Corpuscular Hemoglobin Concent 2018-07-22 07:03:00* Test Item Value Reference Range Interpretation Comments Mean Corpuscular Hemoglobin Concent (test code = 786-4) 28.9 31-35 L [facility] WorthRed Cell Distribution Kuxvj5972-81-91 07:03:00* Test Item Value Reference Range Interpretation Comments Red Cell Distribution Width (test code = 17138-2) 22.7 11.7 -14.4 H [facility] WorthPlatelet Zayov4437-58-54 07:03:00* Test Item Value Reference Range Interpretation Comments Platelet Count (test code = 777-3) 425 140-360 H [facility] WorthNeutrophils (%) (Auto)2018-07-22 07:03:00 * Test Item Value Reference Range Interpretation Comments Neutrophils (%) (Auto) (test code = 64372-6) 54.4 38.7-80.0 [facility] WorthLymphocytes (%) (Auto)2018-07-22 07:03:00 * Test Item Value Reference Range Interpretation Comments Lymphocytes (%) (Auto) (test code = 736-9) 30.0 18.0-39.1 [facility] WorthMonocytes (%) (Auto)2018-07-22 07:03:00* Test Item Value Reference Range Interpretation Comments Monocytes (%) (Auto) (test code = 5905-5) 8.9 4.4-11.3 [facility] WorthEosinophils (%) (Auto)2018-07-22 07:03:00 * Test Item Value Reference Range Interpretation Comments Eosinophils (%) (Auto) (test code = 713-8) 5.3 0.0-6.0 [facility] WorthBasophils (%) (Auto)2018-07-22 07:03:00* Test Item Value Reference Range Interpretation Comments Basophils (%) (Auto) (test code = 706-2) 0.9 0.0-1.0 [facility] Fort WorthIM GRANULOCYTES %2018-07-22 07:03:00* Test Item Value Reference Range Interpretation Comments IM GRANULOCYTES % (test code = IM GRANULOCYTES %) 0.5 0.0- 1.0 [facility] WorthNeutrophils # (Auto)2018-07-22 07:03:00* Test Item Value Reference Range Interpretation Comments Neutrophils # (Auto) (test code = 751-8) 3.2 2.1-6.9 [facility] WorthLymphocytes # (Auto)2018-07-22 07:03:00* Test Item Value Reference Range Interpretation Comments Lymphocytes # (Auto) (test code = 33485-1) 1.8 1.0-3.2 [facility] WorthMonocytes # (Auto)2018-07-22 07:03:00* Test Item Value Reference Range Interpretation Comments Monocytes # (Auto) (test code = 742-7) 0.5 0.2-0.8 [facility] WorthEosinophils # (Auto)2018-07-22 07:03:00* Test Item Value Reference Range Interpretation Comments Eosinophils # (Auto) (test code = 711-2) 0.3 0.0-0.4 [facility] WorthBasophils # (Auto)2018-07-22 07:03:00* Test Item Value Reference Range Interpretation Comments Basophils # (Auto) (test code = 704-7) 0.1 0.0-0.1 [facility] Fort WorthAbsolute Immature Granulocyte (auto 2018-07-22 07:03:00* Test Item Value Reference Range Interpretation Comments Absolute Immature Granulocyte (auto (hunter t code = Absolute Immature Granulocyte (auto) 0.03 0-0.1 [facility] WorthTroponin C6971-94-44 15:56:00* Test Item Value Reference Range Interpretation Comments Troponin I (test code = RCC9757) 0.009 0-0.300 [facility] WorthHeparin-Induced Platelet Antibody 2018-07-17 02:22:00* Test Item Value Reference Range Interpretation Comments Heparin-Induced Platelet Antibody (test code = 64372-0) 0.268 0.000-0.400 Performed at: [facility] [id number] Envelope Maker: Yung Contreras MD, Phone: [phone] Health Southwest Fort WorthHeparin-Induced Platelet Aikjdoyk4808-26-92 02:22:00* Test Item Value Reference Range Interpretation Comments Heparin-Induced Platelet Antibody (test code = 36280-7) 0.268 0.000-0.400 Performed at: [facility] [id number] Envelope Maker: Yung Contreras MD, Phone: [phone] Health Southwest Fort WorthClostridium Difficile Toxin A & U5135-23-26 12:17:00* Test Item Value Reference Range Interpretation Comments Clostridium Difficile Toxin A & B (test code = 918250277) NEGATIVE NEGATIVE Testing on stool aspirate specimens is outside strike off machine operator claims since specime n type not validated on this assay.[facility] Clostridium Difficile Toxin A & O5777-89-08 12:17:00* Test Item Value Reference Range Interpretation Comments Clostridium Difficile Toxin A & B (test code = 943513879) NEGATIVE NEGATIVE Testing on stool aspirate specimens is outside strike off machine operator claims since specime n type not validated on this assay.[facility] Carcinoembryonic Nruzylf1546-82-62 08:41:00* Test Item Value Reference Range Interpretation Comments Carcinoembryonic Antigen (test code = 2039-6) 2.6 0.0-4.7 Jarod ECLIA methodology Nonsmokers <3.9 Smokers <5.6Performed at: [facility] [id number] Director: Adan Carrillo MD, Phone: [phone] Health Southwest Fort WorthCarcinoembryonic Olhahix8453-00-57 08:41:00* Test Item Value Reference Range Interpretation Comments Carcinoembryonic Antigen (test code = 2039-6) 2.6 0.0-4.7 Jarod ECLIA methodology Nonsmokers <3.9 Smokers <5.6Performed at: [facility] [address] [id number] Director: Adan Carrillo MD, Phone: [phone] Health Southwest Fort WorthUrine Vhlxdcj6888-02-17 06:28:00* Test Item Value Reference Range Interpretation Comments Urine Culture (test code = 630-4) Organism: ESCHERICHIA COLI [facility] WorthUrine Iairvji7186-02-62 06:28:00* Test Item Value Reference Range Interpretation Comments Urine Culture (test code = 630-4) Organism: ESCHERICHIA COLI [facility] Fort WorthCHEST SINGLE (PORTABLE)2018-07-13 07:36:00 [place] [address] Patient Name: GREG HARGROVE MR #: [id number] : 1945 Age/Sex: 72/M Req #: [id number] Adm Physician: ALFONZO RUIZ MD Ordered by: MELISSA RUST MD Report #: [id number] Location: MED/SURG Room/Bed: 106-1 Procedure: [id number] DX/C HEST SINGLE (PORTABLE) Exam Date: 07/13/18 Exam Time : 0645 REPORT STATUS: Signed EXAMINATION: CHEST SINGLE (PORTABLE) INDICATION: COMPARISON: Chest radiograph 10/31/2017, est CT 07/11/2018 FINDINGS: AP view TUBES and LINES: None. LUNGS: Lungs are well inflated. No focal consolidations. PLEURA: No pleural effusion or pneumothorax. HEART AND MEDIASTINUM: The cardiomediast inal silhouette is stable. BONES AND SOFT TISSUES: No acute osseous le vince. Soft tissues are unremarkable. UPPER ABDOMEN: No free air under th e diaphragm. IMPRESSION: No acute radiographic abnormality. Please refer to CT 07/11/2018 for description of PE. Signed by: DR. King Shukla MD on 07/13/2018 7:40 AM Dictated By: KING SHUKLA MD Electronica lly Signed By: KING SHUKLA MD on 07/13/18739 Transcribed By: PAKO on 03/25 COPY TO: MELISSA RUST MD Sodium Ptfgd3379-25-43 06:43:00* Test Item Value Reference Range Interpretation Comments Sodium Level (test code = 2951-2) 138 136-145 [facility] WorthPotassium Tjlhp8761-50-14 06:43:00* Test Item Value Reference Range Interpretation Comments Potassium Level (test code = 2823-3) 4.1 3.5-5.1 [facility] WorthChloride Bvdpp6322-26-51 06:43:00* Test Item Value Reference Range Interpretation Comments Chloride Level (test code = 2075-0) 108 98-107 H [facility] Fort WorthCarbon Dioxide Pjaqx7119-55-91 06:43:00* Test Item Value Reference Range Interpretation Comments Carbon Dioxide Level (test code = 2028-9) 20 22-29 L [facility] WorthAnion Nxj4630-24-21 06:43:00* Test Item Value Reference Range Interpretation Comments Anion Gap (test code = 44219-4) 14.1 8-16 [facility] WorthBlood Urea Pahkrmoh5702-66-06 06:43:00* Test Item Value Reference Range Interpretation Comments Blood Urea Nitrogen (test code = 3094-0) 12 7-26 [facility] WorthCreatinine2018-10-06 06:43:00* Test Item Value Reference Range Interpretation Comments Creatinine (test code = 2160-0) 0.91 0.72-1.25 [facility] Fort WorthBUN/Creatinine Lehxq9077-23-38 06:43:00* Test Item Value Reference Range Interpretation Comments BUN/Creatinine Ratio (test code = 3097-3) 13 6- [facility] Fort WorthEstimat Glomerular Filtration Rate 2018-07-13 06:43:00* Test Item Value Reference Range Interpretation Comments Estimat Glomerular Filtration Rate (test code = 713618082) 60- >60 Ranges were taken from the National Kidney Disease Education Program and the [facility] Foundation literature.Reference ranges:60 or greater: Vpdhro98-92 ( for 3 consecutive months): Chronic kidney disease 15 or less: Kidney failureTexas Health Southwest Fort WorthGlucose Rjbnu1551-29-62 06:43:00* Test Item Value Reference Range Interpretation Comments Glucose Level (test code = BZW1953) 118 74-118 [facility] WorthCalcium Cbypv3127-28-18 06:43:00* Test Item Value Reference Range Interpretation Comments Calcium Level (test code = 23419-8) 9.4 8.4-10.2 [facility] Fort WorthUrine Qckpm2550-91-34 01:31:00* Test Item Value Reference Range Interpretation Comments Urine Color (test code = 5778-6) YELLOW YELLOW [facility] Fort WorthUrine Afiprlx6590-92-38 01:31:00* Test Item Value Reference Range Interpretation Comments Urine Clarity (test code = 48240-8) SL CLOUDY CLEAR H [facility] Fort WorthUrine Specific Ihxrgwo2208-03-96 01:31:00 * Test Item Value Reference Range Interpretation Comments Urine Specific [place] (test code = 5811-5) 1.030 1.010-1.02 5 H [facility] Fort WorthUrine yF1280-21-33 01:31:00* Test Item Value Reference Range Interpretation Comments Urine pH (test code = 27500-7) 6 5-7 [facility] Fort WorthUrine Leukocyte Byvlbwdt7181-14-33 01:31:00* Test Item Value Reference Range Interpretation Comments Urine Leukocyte Esterase (test code = 5799-2) 2+ NEGATIVE [facility] Aomqzvy4703-08-18 01:31:00* Test Item Value Reference Range Interpretation Comments Urine Nitrite (test code = 23914-5) POSITIVE NEGATIVE [facility] Diqlsfp5953-60-74 01:31:00* Test Item Value Reference Range Interpretation Comments Urine Protein (test code = 5804-0) TRACE NEGATIVE [facility] Glucose (UA)2018-07-13 01:31:00* Test Item Value Reference Range Interpretation Comments Urine Glucose (UA) (test code = 2349-9) NEGATIVE NEGATIVE [facility] WorthUrine Ndmioyu1027-68-28 01:31:00* Test Item Value Reference Range Interpretation Comments Urine Ketones (test code = 65246-3) TRACE NEGATIVE [facility] Euqfgkfanyyz3985-62-19 01:31:00* Test Item Value Reference Range Interpretation Comments Urine Urobilinogen (test code = 74265-0) 0.2 0.2-1 [facility] WorthUrine Dewjdiqyk1354-47-45 01:31:00* Test Item Value Reference Range Interpretation Comments Urine Bilirubin (test code = 1978-6) NEGATIVE NEGATIVE [facility] WorthUrine Qnlgk8111-06-91 01:31:00* Test Item Value Reference Range Interpretation Comments Urine Blood (test code = 13472-1) NEGATIVE NEGATIVE [facility] WorthUrine ELT4780-10-92 01:31:00* Test Item Value Reference Range Interpretation Comments Urine WBC (test code = 5821-4) 21-50 0-5 H [facility] Fort WorthUrine KAS7543-13-92 01:31:00* Test Item Value Reference Range Interpretation Comments Urine RBC (test code = 99538-8) 0-5 0-5 [facility] WorthUrine Yqerikbd1906-49-57 01:31:00* Test Item Value Reference Range Interpretation Comments Urine Bacteria (test code = 87897-0) MANY NONE H [facility] Fort WorthUrine Epithelial Tnbru9479-40-30 01:31:00 * Test Item Value Reference Range Interpretation Comments Urine Epithelial Cells (test code = 10111-0) NONE NONE [facility] Foguo8621-73-95 18:13:00* Test Item Value Reference Range Interpretation Comments Iron Level (test code = 2498-4) 17 65-175 L [facility] WorthTotal Iron Binding Flokwhkc2885-83-02 18:13:00* Test Item Value Reference Range Interpretation Comments Total Iron Binding Capacity (test code = 2500-7) 391 261-4 78 [facility] WorthPercent Iron Ujbvjkwepn7142-99-80 18:13:00* Test Item Value Reference Range Interpretation Comments Percent Iron Saturation (test code = 2502-3) 4 15-50 L [facility] Fort WorthTransferrin2018-10-05 18:13:00* Test Item Value Reference Range Interpretation Comments Transferrin (test code = 3034-6) 279 174-364 [facility] Tltng9508-95-92 18:13:00* Test Item Value Reference Range Interpretation Comments Iron Level (test code = 2498-4) 17 65-175 L [facility] Binding Zyseyzte6642-81-15 18:13:00* Test Item Value Reference Range Interpretation Comments Total Iron Binding Capacity (test code = 2500-7) 391 261-4 78 [facility] WorthPercent Iron Nagphspvge0881-73-12 18:13:00* Test Item Value Reference Range Interpretation Comments Percent Iron Saturation (test code = 2502-3) 4 15-50 L [facility] Fort WorthTransferrin2018-10-05 18:13:00* Test Item Value Reference Range Interpretation Comments Transferrin (test code = 3034-6) 279 174-364 [facility] Fort WorthCT CHEST M5914-54-86 18:22:00 [facility] [address] [place] [address] Patient Name: GRGE HARGROVE MR #: [id number] : 1945 Age/Sex: 72/M Req #: [id number] Adm Physician: Ordered by: ANTONY LEÓN MD Report #: [id number] Location: Room/B ed: Procedure: [id number] CT/CT CHEST W Exam Date: Exam Time: 1743 REPORT STATUS: Signed EXAM: CT Chest WITH contrast (PE Protocol) INDICATION: Shortness of breath. S sob PE COMPARISON: None TECHNIQUE: Chest was scanned utilizing a m [employer] Med[employer] helical scanner from the lung apex through the level of the diaph ragm after administration of IV contrast. Thin section reconstructions were ob tained with special concentration on the pulmonary arteries. Coronal and sagit nydia reformations were obtained. Pulmonary embolism protocol was performed. IV CONTRAST: 100 mL of Isovue 370 COMPLICATIONS: None RADIATION DO SE: Total DLP: 691.76 mGy*cm Estimated effective dose: (DLP x 0.0 14 x size factor) mSv CTDIvol has been reviewed. It is below the limits s et by the Radiation Protocol Committee (RPC). FINDINGS: LINES/ TUBES : None. LUNGS AND AIRWAYS: Large pulmonary emboli burden involving bilat eral pulmonary arteries with extension into the respective segmental and subse gmental branches. Mild bilateral perihilar bronchiectasis with mild bronch ial wall thickening. Scattered nonspecific groundglass opacities in the lung b ases, possibly related to combination of atelectasis and air trapping. Mild fo julia wedge-shaped atelectasis in the left lower lobe (series 3 image 87). This may represent atelectasis versus infarct. Calcified granuloma in the late ral right upper lobe (series 3 image 46). PLEURA: The pleural spaces are cl ear. HEART AND MEDIASTINUM: The thyroid gland is normal. No mediastinal, h ilar or axillary lymphadenopathy. The heart is normal in size. There is no pe ricardial effusion. There are moderate atherosclerotic calcifications in the aorta and coronary arteries. Main pulmonary artery measures 4.4 cm in diamete r and the ascending aorta measures 4.2 cm. No enlargement of the right atrium or ventricle. Interventricular septum is in midline. No evidence of heart stra in at this time. 1.2 x 2.3 cm soft tissue density in the left anterior ne ck, which is partially visualized but may represent a submandibular lymph node versus submandibular gland. 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 Splenic calcified gra nulomas. Cholecystectomy. BONES: There are degenerative changes in the thor acic spine. SOFT TISSUES: Unremarkable. IMPRESSION: 1. Large pulmo nary emboli burden in bilateral pulmonary arteries. 2. No evidence of heart s train at this time. 3. Wedge-shaped atelectasis versus infarct in the left lo wer lobe. 4. Bronchiectasis, mild bronchial wall thickening, and likely small airway disease in the lungs. Results were discussed with ELISA Rene by Dr. German on 07/11/2018 at 6:26 PM. Signed by: Dr. Jed German M.D. on 6:36 PM Dictated By: JED GERMAN MD 35 Transcribed By: PAKO on 07/11/181835 COPY TO: ANTONY LEÓN MD Creatine Kinase QO2250-00-80 17:31:00* Test Item Value Reference Range Interpretation Comments Creatine Kinase MB (test code = 26273-2) 1.30 0-5.0 [facility] WorthActivated Partial Thromboplast Time 2018-07-11 17:24:00* Test Item Value Reference Range Interpretation Comments Activated Partial Thromboplast Time (test code = 47550-4) 29.8 23.8-35.5 [facility] WorthTotal Adhxjidqy1578-17-88 17:23:00* Test Item Value Reference Range Interpretation Comments Total Bilirubin (test code = 1975-2) 0.5 0.2-1.2 [facility] WorthAspartate Amino Transf (AST/SGOT) 2018-07-11 17:23:00* Test Item Value Reference Range Interpretation Comments Aspartate Amino Transf (AST/SGOT) (test code = Aspartate Amino Transf (AST/SGOT)) 21 5-34 [facility] WorthAlanine Aminotransferase (ALT/SGPT) 2018-07-11 17:23:00* Test Item Value Reference Range Interpretation Comments Alanine Aminotransferase (ALT/SGPT) (test code = 1742-6) 20 0-55 [facility] WorthTotal Sxasgup4003-00-59 17:23:00* Test Item Value Reference Range Interpretation Comments Total Protein (test code = 2885-2) 8.3 6.5-8.1 H [facility] WorthAlbumin2018-10-04 17:23:00* Test Item Value Reference Range Interpretation Comments Albumin (test code = 1751-7) 3.0 3.5-5.0 L [facility] WorthGlobulin2018-10-04 17:23:00* Test Item Value Reference Range Interpretation Comments Globulin (test code = 39541-8) 5.3 2.3-3.5 H [facility] WorthAlbumin/Globulin Gczvu1496-29-04 17:23:00 * Test Item Value Reference Range Interpretation Comments Albumin/Globulin Ratio (test code = 1759-0) 0.6 0.8-2.0 L [facility] WorthAlkaline Iytkmuuosqx9652-12-10 17:23:00* Test Item Value Reference Range Interpretation Comments Alkaline Phosphatase (test code = 6768-6) 115 40-150 [facility] WorthCreatine Etdlcf3118-55-97 17:23:00* Test Item Value Reference Range Interpretation Comments Creatine Kinase (test code = 2157-6) 48 30-200 [facility] WorthLipase2018-10-04 17:23:00* Test Item Value Reference Range Interpretation Comments Lipase (test code = 3040-3) 18 8-78 [facility] Cmzea9898-32-97 06:59:00* Test Item Value Reference Range Interpretation Comments Sodium Level (test code = 2951-2) 139 136-145 [facility] WorthPotassium Czsfm7091-83-83 06:59:00* Test Item Value Reference Range Interpretation Comments Potassium Level (test code = 2823-3) 3.8 3.5-5.1 [facility] WorthChloride Hyjpk0258-20-84 06:59:00* Test Item Value Reference Range Interpretation Comments Chloride Level (test code = 2075-0) 105 98-107 [facility] WorthCarbon Dioxide Vztpn7356-94-24 06:59:00* Test Item Value Reference Range Interpretation Comments Carbon Dioxide Level (test code = 2028-9) 27 22-29 [facility] WorthAnion Ebe3959-24-00 06:59:00* Test Item Value Reference Range Interpretation Comments Anion Gap (test code = 82996-8) 10.8 8-16 [facility] WorthBlood Urea Pxeaajdm4968-98-01 06:59:00* Test Item Value Reference Range Interpretation Comments Blood Urea Nitrogen (test code = 3094-0) 7 7-26 [facility] WorthCreatinine2018-01-29 06:59:00* Test Item Value Reference Range Interpretation Comments Creatinine (test code = 2160-0) 0.73 0.72-1.25 [facility] WorthBUN/Creatinine Rgtwx1509-52-11 06:59:00* Test Item Value Reference Range Interpretation Comments BUN/Creatinine Ratio (test code = 3097-3) 10 6-25 [facility] WorthEstimat Glomerular Filtration Rate 2017-11-05 06:59:00* Test Item Value Reference Range Interpretation Comments Estimat Glomerular Filtration Rate (test code = 43020-0) 60- >60 Ranges were taken from the National Kidney Disease Education Program and the [facility] [employer] literature.Reference ranges:60 or greater: Zmmxiz09-53 ( for 3 consecutive months): Chronic kidney disease 15 or less: Kidney failureTexas Health Southwest Fort WorthGlucose Mmuwo1732-91-08 06:59:00* Test Item Value Reference Range Interpretation Comments Glucose Level (test code = MSK9818) 108 74-118 [facility] WorthCalcium Umqrc1552-51-77 06:59:00* Test Item Value Reference Range Interpretation Comments Calcium Level (test code = 41485-9) 8.3 8.4-10.2 L [facility] Zcweavdpu6244-78-68 06:59:00* Test Item Value Reference Range Interpretation Comments Total Bilirubin (test code = 1975-2) 0.5 0.2-1.2 [facility] WorthAspartate Amino Transf (AST/SGOT) 2017-11-05 06:59:00* Test Item Value Reference Range Interpretation Comments Aspartate Amino Transf (AST/SGOT) (test code = Aspartate Amino Transf (AST/SGOT)) 36 5-34 H [facility] WorthAlanine Aminotransferase (ALT/SGPT) 2017-11-05 06:59:00* Test Item Value Reference Range Interpretation Comments Alanine Aminotransferase (ALT/SGPT) (test code = 1742-6) 62 0-55 H [facility] WorthTotal Tgfwlsx3534-31-09 06:59:00* Test Item Value Reference Range Interpretation Comments Total Protein (test code = 2885-2) 6.2 6.5-8.1 L [facility] WorthAlbumin2018-01-29 06:59:00* Test Item Value Reference Range Interpretation Comments Albumin (test code = 1751-7) 2.0 3.5-5.0 L [facility] WorthGlobulin2018-01-29 06:59:00* Test Item Value Reference Range Interpretation Comments Globulin (test code = 26400-1) 4.2 2.3-3.5 H [facility] WorthAlbumin/Globulin Odgkv8021-04-06 06:59:00 * Test Item Value Reference Range Interpretation Comments Albumin/Globulin Ratio (test code = 1759-0) 0.5 0.8-2.0 L [facility] WorthAlkaline Bxtmdfzrgab9162-82-19 06:59:00* Test Item Value Reference Range Interpretation Comments Alkaline Phosphatase (test code = 6768-6) 116 40-150 [facility] WorthMagnesium Qmhbo9901-17-92 11:05:00* Test Item Value Reference Range Interpretation Comments Magnesium Level (test code = 42450-9) 1.5 1.3-2.1 [facility] WorthMagnesium Bhimj1570-60-78 11:05:00* Test Item Value Reference Range Interpretation Comments Magnesium Level (test code = 76292-6) 1.5 1.3-2.1 [facility] WorthWhite Blood Yeumm9613-94-90 07:46:00* Test Item Value Reference Range Interpretation Comments White Blood Count (test code = 6690-2) 7.25 4.8-10.8 [facility] WorthRed Blood Bcigm9768-93-18 07:46:00* Test Item Value Reference Range Interpretation Comments Red Blood Count (test code = 789-8) 4.33 4.3-5.7 [facility] WorthHemoglobin2018-01-28 07:46:00* Test Item Value Reference Range Interpretation Comments Hemoglobin (test code = 83203-3) 8.8 14.0-18.0 L [facility] WorthHematocrit2018-01-28 07:46:00* Test Item Value Reference Range Interpretation Comments Hematocrit (test code = 4544-3) 29.9 38.2-49.6 L [facility] WorthMean Corpuscular Ftuwks0303-71-53 07:46:00* Test Item Value Reference Range Interpretation Comments Mean Corpuscular Volume (test code = 787-2) 69.1 81-99 L [facility] WorthMean Corpuscular Agxtsoiyus8113-72-45 07:46:00* Test Item Value Reference Range Interpretation Comments Mean Corpuscular Hemoglobin (test code = 785-6) 20.3 28-32 L [facility] WorthMean Corpuscular Hemoglobin Concent 2017-11-04 07:46:00* Test Item Value Reference Range Interpretation Comments Mean Corpuscular Hemoglobin Concent (test code = 786-4) 29.4 31-35 L [facility] WorthRed Cell Distribution Efiki7942-16-48 07:46:00* Test Item Value Reference Range Interpretation Comments Red Cell Distribution Width (test code = 14790-3) 21.1 11.7 -14.4 H [facility] WorthPlatelet Gcviv6707-15-41 07:46:00* Test Item Value Reference Range Interpretation Comments Platelet Count (test code = 777-3) 216 140-360 [facility] WorthNeutrophils (%) (Auto)2017-11-04 07:46:00 * Test Item Value Reference Range Interpretation Comments Neutrophils (%) (Auto) (test code = 55756-9) 72.3 38.7-80.0 [facility] WorthLymphocytes (%) (Auto)2017-11-04 07:46:00 * Test Item Value Reference Range Interpretation Comments Lymphocytes (%) (Auto) (test code = 736-9) 13.1 18.0-39.1 L [facility] WorthMonocytes (%) (Auto)2017-11-04 07:46:00* Test Item Value Reference Range Interpretation Comments Monocytes (%) (Auto) (test code = 5905-5) 9.4 4.4-11.3 [facility] WorthEosinophils (%) (Auto)2017-11-04 07:46:00 * Test Item Value Reference Range Interpretation Comments Eosinophils (%) (Auto) (test code = 713-8) 4.0 0.0-6.0 [facility] WorthBasophils (%) (Auto)2017-11-04 07:46:00* Test Item Value Reference Range Interpretation Comments Basophils (%) (Auto) (test code = 706-2) 0.6 0.0-1.0 [facility] WorthIM GRANULOCYTES %2017-11-04 07:46:00* Test Item Value Reference Range Interpretation Comments IM GRANULOCYTES % (test code = IM GRANULOCYTES %) 0.6 0.0- 1.0 [facility] WorthNeutrophils # (Auto)2017-11-04 07:46:00* Test Item Value Reference Range Interpretation Comments Neutrophils # (Auto) (test code = 751-8) 5.3 2.1-6.9 [facility] WorthLymphocytes # (Auto)2017-11-04 07:46:00* Test Item Value Reference Range Interpretation Comments Lymphocytes # (Auto) (test code = 55962-7) 1.0 1.0-3.2 [facility] WorthMonocytes # (Auto)2017-11-04 07:46:00* Test Item Value Reference Range Interpretation Comments Monocytes # (Auto) (test code = 742-7) 0.7 0.2-0.8 [facility] WorthEosinophils # (Auto)2017-11-04 07:46:00* Test Item Value Reference Range Interpretation Comments Eosinophils # (Auto) (test code = 711-2) 0.3 0.0-0.4 [facility] WorthBasophils # (Auto)2017-11-04 07:46:00* Test Item Value Reference Range Interpretation Comments Basophils # (Auto) (test code = 704-7) 0.0 0.0-0.1 [facility] WorthAbsolute Immature Granulocyte (auto 2017-11-04 07:46:00* Test Item Value Reference Range Interpretation Comments Absolute Immature Granulocyte (auto (hunter t code = Absolute Immature Granulocyte (auto) 0.04 0-0.1 [facility] WorthUrine Tzaunwf7293-29-30 08:54:00* Test Item Value Reference Range Interpretation Comments Urine Culture (test code = 630-4) Organism: ESCHERICHIA COLI [facility] WorthUrine Xxdudix4186-33-37 08:54:00* Test Item Value Reference Range Interpretation Comments Urine Culture (test code = 630-4) Organism: ESCHERICHIA COLI [facility] WorthAmylase Wuypd6949-93-77 07:49:00* Test Item Value Reference Range Interpretation Comments Amylase Level (test code = 1798-8) 40 25-125 [facility] WorthLipase2018-01-25 07:49:00* Test Item Value Reference Range Interpretation Comments Lipase (test code = 3040-3) 18 8-78 [facility] WorthAmylase Norls0893-17-08 07:49:00* Test Item Value Reference Range Interpretation Comments Amylase Level (test code = 1798-8) 40 25-125 [facility] WorthCreatine Kinase JR3923-05-33 00:28:00* Test Item Value Reference Range Interpretation Comments Creatine Kinase MB (test code = 71886-8) 0.80 0.00-5.00 [facility] WorthTroponin Z9290-20-42 00:28:00* Test Item Value Reference Range Interpretation Comments Troponin I (test code = 40994-7) 0.011 0-0.300 [facility] WorthUrine PUB9523-68-34 00:25:00* Test Item Value Reference Range Interpretation Comments Urine WBC (test code = 5821-4) 6-10 0-5 H [facility] WorthUrine XMZ1333-62-88 00:25:00* Test Item Value Reference Range Interpretation Comments Urine RBC (test code = 55603-7) 11-20 0-5 H [facility] WorthUrine Behqogmc9345-48-16 00:25:00* Test Item Value Reference Range Interpretation Comments Urine Bacteria (test code = 21163-7) MANY NONE H [facility] WorthUrine Epithelial Ddiyd4070-22-39 00:25:00 * Test Item Value Reference Range Interpretation Comments Urine Epithelial Cells (test code = 96749-5) RARE NONE [facility] WorthCreatine Drlurf3553-46-25 00:23:00* Test Item Value Reference Range Interpretation Comments Creatine Kinase (test code = 2157-6) 94 30-200 [facility] WorthInfluenza Virus Types A,B Antigen 2017-10-31 00:22:00* Test Item Value Reference Range Interpretation Comments Influenza Virus Types A,B Antigen (test code = 68578-0) NEGATIVE NEGATIVE [facility] WorthInfluenza Virus Types A,B Antigen 2017-10-31 00:22:00* Test Item Value Reference Range Interpretation Comments Influenza Virus Types A,B Antigen (test code = 82221-6) NEGATIVE NEGATIVE [facility] WorthUrine Krcko1775-33-76 00:15:00* Test Item Value Reference Range Interpretation Comments Urine Color (test code = 5778-6) YELLOW YELLOW [facility] WorthUrine Pajrhis9300-33-74 00:15:00* Test Item Value Reference Range Interpretation Comments Urine Clarity (test code = 61267-3) SL CLOUDY CLEAR [facility] Zwgwaho9192-96-70 00:15:00 * Test Item Value Reference Range Interpretation Comments Urine Specific [place] (test code = 5811-5) 1.020 1.010-1.02 5 [facility] WorthUrine kW0507-51-67 00:15:00* Test Item Value Reference Range Interpretation Comments Urine pH (test code = 65568-4) 6 5-7 [facility] WorthU[facility] Leukocyte Rjfeyutn6086-38-89 00:15:00* Test Item Value Reference Range Interpretation Comments Urine Leukocyte Esterase (test code = 5799-2) TRACE NEGATIVE [facility] Ebioaev0991-97-54 00:15:00* Test Item Value Reference Range Interpretation Comments Urine Nitrite (test code = 94919-7) POSITIVE NEGATIVE [facility] Nvsiohb0045-85-06 00:15:00* Test Item Value Reference Range Interpretation Comments Urine Protein (test code = 5804-0) 1+ NEGATIVE [facility] Glucose (UA)2017-10-31 00:15:00* Test Item Value Reference Range Interpretation Comments Urine Glucose (UA) (test code = 2349-9) NEGATIVE NEGATIVE [facility] WorthUrine Nfwefkk4773-20-23 00:15:00* Test Item Value Reference Range Interpretation Comments Urine Ketones (test code = 18172-9) NEGATIVE NEGATIVE [facility] WorthUrine Rbqrouyurpvy1360-32-13 00:15:00* Test Item Value Reference Range Interpretation Comments Urine Urobilinogen (test code = 53114-4) 1 0.2-1 [facility] WorthUrine Xejwkxnvk2735-71-79 00:15:00* Test Item Value Reference Range Interpretation Comments Urine Bilirubin (test code = 1978-6) NEGATIVE NEGATIVE [facility] WorthUrine Wnxzp9482-04-24 00:15:00* Test Item Value Reference Range Interpretation Comments Urine Blood (test code = 25660-3) 4+ NEGATIVE H [facility] WorthLactic Acid Bjjcm3846-77-76 00:15:00* Test Item Value Reference Range Interpretation Comments Lactic Acid Level (test code = Lactic Acid Level) 34.4 4.5- 19.8 H [facility] WorthLactic Acid Nrwba5060-47-48 00:15:00* Test Item Value Reference Range Interpretation Comments Lactic Acid Level (test code = Lactic Acid Level) 34.4 4.5- 19.8 H [facility] WorthProthrombin Fund6876-37-56 00:12:00* Test Item Value Reference Range Interpretation Comments Prothrombin Time (test code = 5902-2) 15.5 11.9-14.5 H [facility] WorthProthromb Time International Ratio 2017-10-31 00:12:00* Test Item Value Reference Range Interpretation Comments Prothromb Time International Ratio (test code = 6301-6) 1.17 Oral Anticoagulant Therapy INR Values:1. Low Intensity Therapy 1.5 - 2.02 . Moderate Intensity Therapy 2.0 - 3.03. High Intensity Therapy(1) 2.5 - 3. 54. High Intensity Therapy(2) 3.0 - 4.05. Panic Value INR > 5.0 [facility] WorthActivated Partial Thromboplast Time 2017-10-31 00:12:00* Test Item Value Reference Range Interpretation Comments Activated Partial Thromboplast Time (test code = 73036-0) 29.0 23.8-35.5 [facility] WorthHEPTOBILIARY W PHARM [place] [address] Patient Name: GREG HARGROVE MR #: [id number] : 1945 Age/Sex: 72/M Req #: [id number] Adm Physician: ALFONZO RUIZ MD Ordered by: MARTHA GOMES MD Report #: [id number] L ocation: MED/SURG2 Room/Bed: [facility] Procedure: 012 NM/HEPTOBILIARY W PHARM Exam Date: 11/01/17 Exam Time: 0945 REPORT STATUS: Signed HIDA Scan with Morphine Augmentation Clinical information: RUQ pain; cholelithiasis; hepatomegaly Report: Fo llowing the administration of 7.0 of Tc-99m mebrofenin, dynamic images of the abdomen in the anterior projection were obtained through 60 minutes. Addition al static image was obtained at 90 minutes. Morphine sulfate 4 mg was adminis tered via slow IV push and additional images were obtained through 30 minutes. Perfusion to the liver is normal. Extraction of tracer by the liver paren chyma is normal. Tracer appears promptly within the biliary tract. Tracer is seen within the small bowel by 55 minutes. Proximal portion of the cystic du ct begins to fill by 20 minutes. The gallbladder does not fill during the ini tial 60 minutes of dynamic imaging or at 90 minutes. Following administration of morphine, the gallbladder also does not fill. Impression: 1. Absence of filling of the gallbladder, even following administration of morphi ne, is compatible with the diagnosis of acute cystic duct obstruction/acute ch olecystitis. A portion of the cystic duct fills but following morphine, the gallbladder does not fill. Signed by: Dr. Delroy Sosa M.D. on 11/01/2017 12 :46 PM Dictated By: DELROY SOSA MD 1246 Transcribed By: PAKO on 11/01/17 1246 COPY TO: MARTHA GOMES MD CHEST XRAY LINE PLACEMENT [place] [address] Patient Name: GREG HARGROVE MR #: [id number] : 1945 Age/Sex: 72/M Req #: [id number] Adm Physician: ALFONZO RUIZ MD Ordered by: ALFONZO RUIZ MD Report #: [id number] Location: MED/SURG2 Room/Bed: [facility] Procedure: [id number] DX/CHEST XRAY LINE PLACEMENT Exam Date: Exam Time: REPORT STATUS: Signed PROCEDURE: A single AP view of the chest. COMPARISON: [facility], DX, CHEST SINGLE (PORTABLE), 10/31/2017, 0:13. INDICATIONS: PICC PLACEMENT FINDINGS: See impression. IMPRESSION: 1. interval placement of right-sided PICC line, with distal tip projecting in the proximal to mid SVC. 2. Otherwise, no signific ant interval change. Joel Trujillo M.D. Dictated by: Joel Trujillo M.D. on 10/31/2017 at 17:52 Electronically approved by: Jagjit Trujillo M.D. on 10/31/2017 at 17:52 Dictated By: JOEL LINDQUIST MD 51 Transcr ibed By: MICHELLE on 10/31/171751 COPY TO: ALFONZO RUIZ MD CT ABDOMEN/PELVIS W [place] [address] Patient Name: GREG HARGROVE #: [id number] : 1945 Age/Sex: 72/M Req #: [id number] Adm Physician: Ordered by: MANFRED MCMILLAN MD Report #: [id number] Location: ER Room/Bed: Procedure: [id number] CT/CT ABDOMEN/PELVIS W Exam Date: Exam Time: REPORT STATUS: Signed EXAM: CT ABDOMEN/PELVIS W DATE: 10/31/2017 12:37 AM INDICATION: S ABD PAIN, H/O COLON CA WITH ELEVATED LFTS S Y COMPARISON: None TECHNIQUE: The abdomen and pelvis were scanned using a multidetector helical scanner. Coronal and sagittal reformations were obtained. Routine protocol performed. IV Co ntrast: 100 ml Isovue 370 FINDINGS: Image quality is partially degraded b y body habitus leading to noise/photon starvation. LOWER THORAX: Mild bibasi lar atelectasis/scarring. LIVER/BILIARY: No masses. No ductal dilatation. GALLBLADDER: Gallstones or sludge. Subtle infiltration of the pericholecys tic fat. SPLEEN: Unremarkable PANCREAS: Unremarkable ADRENALS: No nod ules KIDNEYS: Symmetric perfusion. No enhancing masses. No hydronephrosis. GI TRACT: Postsurgical changes status post gastric bypass and partial right colonic resection. There is scattered diverticulosis. VESSELS: Infrarenal I VC filter is in place with slight extrusion of the lateral struts. Mild athero sclerotic changes. PERITONEUM/RETROPERITONEUM: No free air or fluid LYMPH NO THANIA: No lymphadenopathy REPRODUCTIVE ORGANS/BLADDER: Bladder is decompresse d with a Miner. SOFT TISSUES: Unremarkable BONES: Degenerative changes, w hich result in narrowing of the lower lumbar spinal canal. IMPRESSION: 1. Cholelithiasis/sludge with subtle infiltration of the pericholecystic fat, which could reflect early/mild acute cholecystitis in the proper clinical cont ext. 2. Otherwise negative for acute abnormality. 3. Postsurgical changes st atus post presumed right hemicolectomy. No evidence of metastatic disease. Signed by: Dr Ángel Perrin MD on 10/31/2017 4:35 AM Dictated By: ÁNGEL PERRIN MD 4 Tr anscribed By: PAKO on 10/31/17434 COPY TO: MANFRED MCMILLAN MD US GALLBLADDER [place] [address] Patient Name: GREG HARGROVE MR #: [id number] : 1945 Age/Sex: 72/M Req #: [id number] Adm Physician: Ordered by: MANFRED MCMILLAN MD Report #: [id number] Location: ER Room/Bed: Procedure: [id number] US/US GALLBLADDER Exam Date: 10/31/17 Exam Time: 124 REPORT STATUS: Signed EXAM: US GALLBLADDER DATE: 10/31/2017 12:00 AM INDICATION: , Right upper quadrant pain COMPARISON: None TECHNIQUE: Transverse and longi tudinal metzger scale and color doppler sonographic images of the upper abdomen w ere obtained. FINDINGS: Note that the study was degraded due to over lying bowel gas and patient body habitus. LIVER 19.4 cm in the right midcl avicular line. Normal echogenicity, normal contour, no masses. The left liver was poorly evaluated/visualized. GALLBLADDER Tumefactive sludge. No wal l-thickening or pericholecystic fluid. Sonographic Harrison's sign not evaluated - patient was given pain medication. BILE DUCTS No intra nor extra-hepati c biliary dilation. Common bile duct measures 0.5 cm PANCREAS: Not visual ized due to overlying bowel gas RIGHT KIDNEY: 11.8 cm Echogenicity: Vanesa l Collecting System: No hydronephrosis Stones: None Cyst/Mass: None VESSELS: Aorta: Not visualized Inferior Vena Cava: Visualized portions are normal Main Portal Vein: 1.1 cm, hepatopetal flow. FREE FLUID: None IMPRESSION: Study degraded by overlying bowel gas and body habitus. 1. Gallb ladder sludge without evidence of acute cholecystitis. 2. Hepatomegaly. Signed by: Dr Ángel Perrin MD on 10/31/2017 2:23 AM Dictated By: ÁNGEL PERRIN MD 2 Anne scribed By: PAKO on 10/31/17222 COPY TO: MANFRED MCMILLAN MD CHEST SINGLE (PORTABLE) [place] [address] Patient Name: GREG HARGROVE MR #: [id number] : 1945 Age/Sex: 72/M Req #: [id number] Adm Physician: Ordered by: MANFRED MCMILLAN MD Report #: [id number] Location: ER Room/Bed: Procedure: [id number] DX/CHEST SINGLE (PORTAB LE) Exam Date: Exam Time: REPORT STATUS: Sig soha CHEST SINGLE (PORTABLE), 10/30/2017 11:41 PM Technique: CHEST SINGLE (PORTABLE) Comparison: None available. Clinical history: Fever Findings : Limited by portable technique and motion artifact. Slightly prominent card iomediastinal silhouette, accentuated by technique. No consolidation, effusion or pneumothorax. Impression: Limited by portable technique and motion ar tifact. No definite acute abnormality. If there is ongoing clinical concern, c onsider repeat. Signed by: Dr Ángel Perrin MD on 10/31/2017 12:34 AM Dictated By: ÁNGEL PERRIN MD Transcribed By: PAKO on 10/31/1733 COPY TO: MANFRED APONTE MD
[2020-05-16 09:19] LABS: BASOPHILS # (AUTO) 0.1 (0.0-0.1); BASOPHILS % 0.5 % (0.0-1.0); EOSINOPHILS # (AUTO) 0.1 (0.0-0.4); EOSINOPHILS % 0.9 % (0.0-6.0); HEMATOCRIT 38.1 % (38.2-49.6); LYMPHOCYTES % 9.2 % (18.0-39.1); MEAN CORPUSCULAR HEMOGLOBIN 19.9 pg (28-32); MEAN CORPUSCULAR HGB CONC 28.9 g/dL (31-35); MEAN CORPUSCULAR VOLUME 68.9 fL (81-99); MONOCYTES # (AUTO) 0.5 (0.2-0.8); NEUTROPHILS # (AUTO) 8.6 (2.1-6.9); NEUTROPHILS % 83.7 % (38.7-80.0); PLATELET COUNT 383 x10e3/uL (140-360); RED BLOOD COUNT 5.53 x10e6/uL (4.3-5.7); RED CELL DISTRIBUTION WIDTH 20.8 % (11.7-14.4)
[2020-05-16 09:55] LABS: INR 1.04; PROTHROMBIN TIME 14.1 seconds (11.9-14.5)
[2020-05-16 09:56] LABS: ALANINE AMINOTRANSFERASE 29 IU/L (0-55); ANION GAP 13.8 mmol/L (8-16); BLOOD UREA NITROGEN 15 mg/dL (7-26); BUN/CREATININE RATIO 17 (6-25); CALCIUM 8.6 mg/dL (8.4-10.2); CARBON DIOXIDE 19 mmol/L (22-29); CHLORIDE 109 mmol/L (98-107); CREATININE, SERUM 0.88 mg/dL (0.72-1.25); EST GLOMERULAR FILTRATION RATE > 60 ML/MIN (60-); GLUCOSE 115 mg/dL (74-118); POTASSIUM 4.8 mmol/L (3.5-5.1); SODIUM 137 mmol/L (136-145)
[2020-05-16 09:57] LABS: ALBUMIN 3.2 g/dL (3.5-5.0); ALBUMIN/GLOBULIN RATIO 0.6 (0.8-2.0); ALKALINE PHOSPHATASE 131 IU/L (40-150)
[2020-05-16 10:19] LABS: PARTIAL THROMBOPLASTIN TIME 26.3 seconds (23.8-35.5)
--- NOTE | 2020-05-16 10:43 | Emergency Department Note ---
History of Present Illnes History of Present Illness Chief Complaint: Back Pain History of Present Illness This is a 74 year old male 74 Y/O MALE PT AAOX3 PRESENTS TO ED WITH PAIN TO LEFT MID BACK; PT REPORTS FELL TO GROUND WHEN TRYING TO GET OFF COMMODE, FELL TO FLOOR HITTING BACK AGAINST TUB; DENIES LOC, SMALL ABRASION NOTED TO BACK; PTS V/S/S; NAD NOTED. Tester Operator Required: No Onset (how long ago): hour(s) Location: LEFT BACK Quality: PAIN Radiation: Reports non-radiation Severity: moderate Onset quality: sudden Timing of current episode: constant Progression: unchanged Chronicity: new Context: Denies recent illness Relieving factors: none Exacerbating factors: none Associated symptoms: Reports denies other symptoms Treatments prior to arrival: none Past Medical/Family History Physician Review I have reviewed the patient's past medical and family history. Any updates have been documented here. 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 COLON CANCER R LEG DVT Past Surgical History: Cholecysctectomy Other Surgery: COLON RESECTION GASTRIC BYPASS IVC filter Social History Smoking Cessation: Never Smoker Counseling Performed: No Alcohol Use: None Any Illegal Drug Use: No TB Exposure/Symptoms: No Physically hurt or threatened: No Family History Family history of heart diseas: No Other Last Tetanus: UNK Any Pre-Existing Lines (PICC,: No Review of Systems Review of Systems Constitutional: Reports no symptoms EENTM: Reports no symptoms Cardiovascular: Reports no symptoms Respiratory: Reports no symptoms Gastrointestinal: Reports no symptoms Genitourinary: Reports no symptoms Musculoskeletal: Reports as per HPI Integumentary: Reports no symptoms Neurological: Reports no symptoms Psychological: Reports no symptoms Endocrine: Reports no symptoms Hematological/Lymphatic: Reports no symptoms Physical Exam Related Data Allergies: Coded Allergies: Penicillins (Verified Allergy, Unknown, 12/01/19) Sulfa (Sulfonamide Antibiotics) (Verified Allergy, Unknown, 12/01/19) codeine (Verified Allergy, Unknown, 12/01/19) warfarin (Verified Allergy, Unknown, 12/01/19) Patient breaks into hives per daughter. Triage Vital Signs Vital Signs Date Time Temp Pulse Resp B/P (MAP) Pulse Ox O2 Delivery O2 Flow Rate FiO2 05/16/20 08:54 98.9 78 19 153/85 98 Room Air Vital signs reviewed: Yes Physical Exam CONSTITUTIONAL Constitutional: Present well-nourished, Present morbidly obese; Absent ill appearing HENT HENT: Present normocephalic, Present atraumatic, Present oropharynx clear/moist, Present nose normal HENT L/R: Present left ext ear normal, Present right ext ear normal EYES Eyes: Reports PERRL, Reports conjunctivae normal NECK Neck: Present ROM normal PULMONARY Pulmonary: Present effort normal, Present breath sounds normal CARDIOVASCULAR Cardiovascular: Present regular rhythm, Present heart sounds normal, Present normal rate, Present LLE edema, Present RLE edema GASTROINTESTINAL Abdominal: Present soft, Present nontender, Present bowel sounds normal GENITOURINARY Genitourinary: Present exam deferred SKIN Skin: Present other (SMALL 4 CM LINEAR SUPERFICIAL ABRASION LEFT BACK/CVA) MUSCULOSKELETAL Musculoskeletal: Present ROM normal, Present other (MOD TENDERNESS TO PALPATION LEFT POSTERIOR LOWER RIBS AND ICS's) NEUROLOGICAL Neurological: Present alert, Present oriented x 3, Present no gross motor or sensory deficits PSYCHOLOGICAL Psychological: Present mood/affect normal, Present judgement normal Results Laboratory Result Diagram: 05/16/2006 05/16/20 0906 Laboratory Laboratory Tests Test 05/16/20 09:06 White Blood Count 10.30 x10e3/uL (4.8-10.8) Red Blood Count 5.53 x10e6/uL (4.3-5.7) Hemoglobin 11.0 g/dL (14.0-18.0) Hematocrit 38.1 % (38.2-49.6) Mean Corpuscular Volume 68.9 fL (81-99) Mean Corpuscular Hemoglobin 19.9 pg (28-32) Mean Corpuscular Hemoglobin Concent 28.9 g/dL (31-35) Red Cell Distribution Width 20.8 % (11.7-14.4) Platelet Count 383 x10e3/uL (140-360) Neutrophils (%) (Auto) 83.7 % (38.7-80.0) Lymphocytes (%) (Auto) 9.2 % (18.0-39.1) Monocytes (%) (Auto) 5.0 % (4.4-11.3) Eosinophils (%) (Auto) 0.9 % (0.0-6.0) Basophils (%) (Auto) 0.5 % (0.0-1.0) Neutrophils # (Auto) 8.6 (2.1-6.9) Lymphocytes # (Auto) 1.0 (1.0-3.2) Monocytes # (Auto) 0.5 (0.2-0.8) Eosinophils # (Auto) 0.1 (0.0-0.4) Basophils # (Auto) 0.1 (0.0-0.1) Absolute Immature Granulocyte (auto 0.07 x10e3/uL (0-0.1) Prothrombin Time 14.1 seconds (11.9-14.5) Prothromb Time International Ratio 1.04 Activated Partial Thromboplast Time 26.3 seconds (23.8-35.5) Sodium Level 137 mmol/L (136-145) Potassium Level 4.8 mmol/L (3.5-5.1) Chloride Level 109 mmol/L (98-107) Carbon Dioxide Level 19 mmol/L (22-29) Anion Gap 13.8 mmol/L (8-16) Blood Urea Nitrogen 15 mg/dL (7-26) Creatinine 0.88 mg/dL (0.72-1.25) Estimat Glomerular Filtration Rate > 60 ML/MIN (60-) BUN/Creatinine Ratio 17 (6-25) Glucose Level 115 mg/dL (74-118) Calcium Level 8.6 mg/dL (8.4-10.2) Total Bilirubin 0.5 mg/dL (0.2-1.2) Aspartate Amino Transf (AST/SGOT) 32 IU/L (5-34) Alanine Aminotransferase (ALT/SGPT) 29 IU/L (0-55) Alkaline Phosphatase 131 IU/L (40-150) Total Protein 8.5 g/dL (6.5-8.1) Albumin 3.2 g/dL (3.5-5.0) Globulin 5.3 g/dL (2.3-3.5) Albumin/Globulin Ratio 0.6 (0.8-2.0) Lab results reviewed: Yes Imaging Imaging results reviewed: Yes Impressions CT BRAIN WO Impression: 1. No acute intracranial abnormalities. 2. Moderate generalized volume loss, prominent sylvian fissures, moderately dilated ventricles without hydrocephalus and diffuse supratentorial white matter microvascular ischemic changes could be age-related but consider normal pressure hydrocephalus in the appropriate clinical setting. 3. Chronic lacunar insults (right thalamus, left subinsular and left frontal subcortical). Signed by: Dr. Kenn Vicente M.D. on 05/16/2020 11:[address] CHEST/ABD/PELVIS WITH CONTRAST IMPRESSION: 1. No evidence of pulmonary contusion or solid or hollow organ injury in the abdomen or pelvis. 2. No evidence of displaced rib fracture or body wall contusion/hematomas. No secondary signs of injury in the left CVA. 3. 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 No evidence of acute embolus. Signed by: Dr. Lorena Monet MD on 05/16/2020 12:10 PM Assessment & Plan Medical Decision Making MDM FALL, ON COUMADIN WITH LEFT FLANK/POSTERIOR RIB PAIN - CHECK CBC, CHEM'S, UA, CT HEAD/CHEST/ABD/PELVIS - R/O ANEMIA, RENAL INSUFF, HEMATURIA, CEREBRAL BLEED, RIB FX'S, TRAUMATIC INJURY TO SPLEEN OR KIDNEY Reassessment Reassessment CT'S NEGATIVE ACUTE, DC HOME, OTC TYLENOL, TRAMADOL RX, TAKE COUMADIN DIRECTED, F/U PCP TOMORROW, RTED PRN Assessment & Plan Final Impression: (1) Fall (2) Chest wall contusion Depart Disposition: HOME, SELF-CARE Last Vital Signs Date Time Temp Pulse Resp B/P (MAP) Pulse Ox O2 Delivery O2 Flow Rate FiO2 05/16/20 09:33 67 18 145/84 99 Room Air 05/16/20 08:54 98.9 Home Meds Reported Medications Hydrocortisone (HYDROCORTISONE) 30 Gm Cr, 1 APPLIC TOP BID PRN for ITCHING, EACH 02/24/19 [Nystatin ] No Conflict Check, 1 APPLIC TOP Q4HR PRN for REDNESS 02/24/19 Loperamide Hcl* (IMODIUM*) 2 Mg Cap, 4 MG PO TID, CAP 02/24/19 Cranberry Extract (CRANBERRY) 250 Mg Capsule, 500 MG PEG DAILY 02/24/19 Furosemide (LASIX) 20 Mg Tablet, 20 MG PO DAILY, #30 TAB 02/24/19 Diphenhydramine Hcl (BENADRYL) 25 Mg Capsule, 50 MG PO HS 02/24/19 Spironolactone (SPIRONOLACTONE) 25 Mg Tablet, 25 MG PO DAILY, #60 TAB 02/24/19 Sertraline Hcl (ZOLOFT) 50 Mg Tablet, 100 MG PO DAILY, #30 TAB 02/24/19 Warfarin Sodium (COUMADIN) 5 Mg Tablet, 10 MG PO 1700, #7 TAB 02/24/19 Warfarin Sodium* (COUMADIN*) 3 Mg Tablet, 3 MG PO 1700, #7 TAB 02/24/19 Medications in the ED Sodium Chloride 1,000 ml @ 0 mls/hr Q0M STAT IV Last administered on 05/16/20at 09:33; Admin Dose 999 MLS/HR; Start 05/16/20 at 08:56; Stop 05/16/20 at 09:52; Status DC HUGH HUMPHRIES MD May 16, 2020 10:42
[2020-05-16] MEDS ORDERED: SODIUM CHLORIDE 0.9% 50ML 50 ML ONE (10:59)
[2020-05-16] MEDS ORDERED: IOPAMIDOL 370 MG/ML 200 ML INFUS..BTL INJ ONE (10:59)
[2020-05-16] MEDS ORDERED: KETOROLAC TROMETHAMINE 30 MG/ML VIAL IV ONE (11:24)
[2020-05-16] MEDS ORDERED: HYDROCODONE/APAP 5MG-325MG TAB PO ONE (11:30)
--- NOTE | 2020-05-16 12:00 | Diagnostic Imaging Report ---
History:Fall Comparison studies: None Technique: Axial images were obtained from the skull base to the vertex. Coronal and sagittal images reconstructed from the axial data. Dose modulation, iterative reconstruction, and/or weight based adjustment of the mA/kV was utilized to reduce the radiation dose to as low as reasonably achievable. Intravenous contrast: None Findings: Scalp/skull: No abnormalities. Extra-axial spaces: No masses. No fluid collections. Brain sulci: Moderately prominent including the sylvian fissures. Ventricles: Moderately dilated. No hydrocephalus but no acute hydrocephalus. Parenchyma: Diffuse, confluent hypodensities in the supratentorial white matter are microvascular ischemic changes. A 6 mm chronic (CSF-like) lacunar insult is centered in the paramedian region of the right thalamus. Additional less than 3 mm similar insults are located in the left subinsular region and left frontal subcortical white matter. No masses, hemorrhage, acute or chronic cortical insults. Sellar/suprasellar region: No abnormalities. Craniocervical junction: Patent foramen magnum. No Chiari one malformation. Incidental findings: Subtle calcifications in the carotid siphons and vertebral arteries . Nonobstructing retention cyst in the left maxillary sinus. Impression: 1. No acute intracranial abnormalities. 2. Moderate generalized volume loss, prominent sylvian fissures, moderately dilated ventricles without hydrocephalus and diffuse supratentorial white matter microvascular ischemic changes could be age-related but consider normal pressure hydrocephalus in the appropriate clinical setting. 3. Chronic lacunar insults (right thalamus, left subinsular and left frontal subcortical). Signed by: Dr. Kenn Vicente M.D. on 05/16/2020 11:57 AM
--- NOTE | 2020-05-16 12:13 | Diagnostic Imaging Report ---
CT chest, abdomen and pelvis with intravenous contrast Indication: ^TRAUMA PROTOCOL, FALL, LEFT CVA/RIB TENDERNESS ON COUMADIN ^[id number] ^1100 Technique: Thin collimation axial images obtained from the thoracic inlet to the level of the pubic symphysis following the uneventful administration of 100 cc of low osmolar, nonionic intravenous contrast. RADIATION DOSE: Total DLP: 1179.47 mGy*cm Estimated effective dose: (DLP x 0.015 x size factor) mSv CTDIvol has been reviewed. It is below the limits set by the Radiation Protocol Committee (RPC). Dose reduction techniques used: Automated exposure control, adjustment of the mAs and/or kVp according to patient size, standardized low-dose protocol, and/or iterative reconstruction technique. Comparison: CT abdomen/pelvis 02/26/2019, CT chest 02/24/2019. CHEST FINDINGS: Lymph nodes: No enlarged axillary, supraclavicular, or mediastinal lymph nodes. There are a few calcified precarinal and right hilar lymph nodes. Thyroid: Visualized portions are normal. Mediastinum: No pericardial effusion. The heart is top normal in size. Chronic-appearing filling defect in the posterior lower lobe branch of the right pulmonary artery is similar. No new filling defects in the pulmonary artery. Diffuse atherosclerotic calcifications. Small hiatal hernia. Lungs: Right Lung: No evidence of contusion. Mild reticulation in the base of the lung is stable. Calcified granuloma in the lateral upper lobe abutting the pleura measures 5 mm. Left Lung: No evidence of contusion. Mild reticulation in the base of the lung is stable. No soft tissue nodules. Airways: Clear. Pleura: No evidence of pleural effusion or pneumothorax. ABDOMEN FINDINGS: Liver: No contusion or laceration. No evidence for mass. Gallbladder: Absent. No biliary ductal dilatation. Pancreas: Diffuse fatty atrophy without mass or ductal dilatation. Spleen: No contusion or laceration. Several scattered calcified granulomata are stable. Adrenal Glands: No evidence for mass. Kidneys: Right: Normal enhancement. No cortical mass. No hydronephrosis. Left: Normal enhancement. No cortical mass. No hydronephrosis. Lymph Nodes: No enlarged abdominal or periaortic lymph nodes. Aorta: Normal in diameter and well opacified. IVC: IVC filter terminates at the confluence of the renal veins and is stable in position. PELVIS FINDINGS: Bowel: Stomach: Collapsed. Small/Large bowel: Stable postoperative changes. No bowel dilatation. Diverticulosis of the descending and sigmoid colon without associated inflammation. No dilated small or large bowel. Bladder: Normal. Lymph Nodes: No enlarged mesenteric, pelvic, or inguinal lymph nodes. Peritoneum/retroperitoneum: No free fluid or fluid collection. Bones: The ribs appear intact. No focal osseous lesions. Mild degenerative changes of the cervical, thoracic and lumbar spine. No compression fracture or listhesis. No diastases of the pubic symphysis or sacroiliac joints. The hips are intact and normally positioned. Soft tissues: No evidence of chest or abdominal wall contusion. Mild bilateral gynecomastia. IMPRESSION: 1. No evidence of pulmonary contusion or solid or hollow organ injury in the abdomen or pelvis. 2. No evidence of displaced rib fracture or body wall contusion/hematomas. No secondary signs of injury in the left CVA. 3. 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 No evidence of acute embolus. Signed by: Dr. Lorena Monet MD on 05/16/2020 12:10 PM
[2020-05-16 12:43] LABS: ANISOCYTOSIS MODERATE; HYPOCHROMASIA SLIGHT; MICROCYTOSIS SLIGHT; OVALOCYTES FEW; PLATELET ESTIMATE SLIGHTLY INCREASED; RBC MORPHOLOGY COMMENT ABNORMAL
[2020-05-16 12:44] LABS: ELLIPTOCYTE, RBC SLIGHT; SCHISTOCYTES RARE
[2020-05-16 12:45] LABS: HELMET CELLS RARE; PLATELET MORPHOLOGY COMMENT NORMAL
== END 2020-05-16 14:36 | disposition home or self-care (01) ==
LOC: ER 08:40
DX: S30.0XXA Contusion of lower back and pelvis, initial encounter (principal); S00.83XA Contusion of other part of head, initial encounter; S20.219A Contusion of unspecified front wall of thorax, initial encounter; W18.12XA Fall from or off toilet with subsequent striking against object, initial encounter; Y92.002 Bathroom of unspecified non-institutional (private) residence as the place of occurrence of the external cause; I10 Essential (primary) hypertension; Z86.711 Personal history of pulmonary embolism; Z85.038 Personal history of other malignant neoplasm of large intestine; Z85.828 Personal history of other malignant neoplasm of skin; Z98.84 Bariatric surgery status
CPT/HCPCS: 36415; 70450; 71260; 74177; 80053; 85025; 85610; 85730; 99284; J1885; J7030; Q9967

== ENCOUNTER → 2021-03-04 | Outpatient (CLI) | payer MEDICARE, OTHER | LOC: US 12:15 | DX: N20.0 Calculus of kidney (principal) | CPT/HCPCS: 76770 ==

== ENCOUNTER 2021-03-22 13:54 | Emergency (ER) | payer OTHER, MEDICARE ==
[~2021-03-22] VITALS: Ht 188 cm; Wt 167.8 kg
[2021-03-22] MEDS ORDERED: KETOROLAC TROMETHAMINE 30 MG/ML VIAL IM ONE (14:45)
== END 2021-03-22 17:21 | disposition home or self-care (01) ==
LOC: ER 13:56
DX: S00.83XA Contusion of other part of head, initial encounter (principal); W01.0XXA Fall on same level from slipping, tripping and stumbling without subsequent striking against object, initial encounter; Y93.01 Activity, walking, marching and hiking; Y92.128 Other place in nursing home as the place of occurrence of the external cause; I10 Essential (primary) hypertension; Z85.828 Personal history of other malignant neoplasm of skin; Z85.038 Personal history of other malignant neoplasm of large intestine; Z86.718 Personal history of other venous thrombosis and embolism; Z98.84 Bariatric surgery status
CPT/HCPCS: 70450; 99284

== ENCOUNTER 2021-05-27 13:36 | Emergency (ER) | payer OTHER, MEDICARE ==
[~2021-05-27] VITALS: Ht 188 cm; Wt 167.8 kg
[2021-05-27 14:36] LABS: BASOPHILS % 0.4 % (0.0-1.0); EOSINOPHILS % 0.5 % (0.0-6.0); HEMATOCRIT 33.1 % (38.2-49.6); HEMOGLOBIN 9.2 g/dL (14.0-18.0); LYMPHOCYTES # (AUTO) 0.5 (1.0-3.2); LYMPHOCYTES % 6.6 % (18.0-39.1); MEAN CORPUSCULAR HEMOGLOBIN 17.9 pg (28-32); MEAN CORPUSCULAR HGB CONC 27.8 g/dL (31-35); MEAN CORPUSCULAR VOLUME 64.3 fL (81-99); MONOCYTES # (AUTO) 0.3 (0.2-0.8); MONOCYTES % 3.9 % (4.4-11.3); NEUTROPHILS # (AUTO) 6.8 (2.1-6.9); NEUTROPHILS % 88.2 % (38.7-80.0); PLATELET COUNT 151 x10e3/uL (140-360); RED BLOOD COUNT 5.15 x10e6/uL (4.3-5.7); RED CELL DISTRIBUTION WIDTH 21.8 % (11.7-14.4)
[2021-05-27 14:49] LABS: INR 9.41; PROTHROMBIN TIME 77.2 seconds (11.9-14.5)
[2021-05-27 15:04] LABS: ALBUMIN 2.4 g/dL (3.5-5.0); ALBUMIN/GLOBULIN RATIO 0.4 (0.8-2.0); ANION GAP 15.1 mmol/L (8-16); CALCIUM 8.8 mg/dL (8.4-10.2); CREATININE, SERUM 1.18 mg/dL (0.72-1.25); POTASSIUM 4.1 mmol/L (3.5-5.1)
[2021-05-27 15:14] LABS: MAGNESIUM 2.4 MG/DL (1.3-2.1)
[2021-05-27] MEDS ORDERED: PHYTONADIONE 1 MG/0.5 ML AMP PO ONE (15:15)
[2021-05-27] MEDS ORDERED: PHYTONADIONE 10 MG/ML AMP PO ONE (16:00)
[2021-05-27 17:17] VITALS: BP 102/56
== END 2021-05-27 17:17 ==
LOC: ER 13:42
DX: R00.1 Bradycardia, unspecified (principal); T45.515A Adverse effect of anticoagulants, initial encounter; F03.90 Unspecified dementia, unspecified severity, without behavioral disturbance, psychotic disturbance, mood disturbance, and anxiety; I89.0 Lymphedema, not elsewhere classified; I10 Essential (primary) hypertension; Z86.718 Personal history of other venous thrombosis and embolism; Z79.01 Long term (current) use of anticoagulants; Z88.5 Allergy status to narcotic agent; Z88.0 Allergy status to penicillin; Z88.2 Allergy status to sulfonamides; Z88.8 Allergy status to other drugs, medicaments and biological substances
CPT/HCPCS: 36415; 70450; 80053; 83735; 83880; 84484; 85025; 85610; 93005; 99283; J3430

== ENCOUNTER 2021-05-30 04:50 | Inpatient (IN) | payer MEDICARE, OTHER ==
[~2021-05-30] VITALS: Ht 188 cm; Wt 167.8 kg
[2021-05-30] MEDS ORDERED: SODIUM CHLORIDE 0.9% 500ML 500 ML IV ONE ×2 (05:15→06:30)
[2021-05-30] MEDS ORDERED: SODIUM CHLORIDE 0.9% 500ML 500 ML ONE (05:21)
[2021-05-30 05:24] LABS: BASOPHILS % 0.3 % (0.0-1.0); EOSINOPHILS % 0.1 % (0.0-6.0); HEMATOCRIT 31.2 % (38.2-49.6); HEMOGLOBIN 8.9 g/dL (14.0-18.0); LYMPHOCYTES # (AUTO) 0.4 (1.0-3.2); LYMPHOCYTES % 3.7 % (18.0-39.1); MEAN CORPUSCULAR HEMOGLOBIN 18.1 pg (28-32); MEAN CORPUSCULAR HGB CONC 28.5 g/dL (31-35); MEAN CORPUSCULAR VOLUME 63.3 fL (81-99); MONOCYTES # (AUTO) 0.4 (0.2-0.8); MONOCYTES % 3.7 % (4.4-11.3); NEUTROPHILS # (AUTO) 10.8 (2.1-6.9); NEUTROPHILS % 91.6 % (38.7-80.0); PLATELET COUNT 115 x10e3/uL (140-360); RED BLOOD COUNT 4.93 x10e6/uL (4.3-5.7); RED CELL DISTRIBUTION WIDTH 22.1 % (11.7-14.4)
[2021-05-30] MEDS ORDERED: ATROPINE SULFATE 0.1 MG/ML 10ML SYR ONE (05:28)
[2021-05-30 05:43] LABS: ALBUMIN 2.4 g/dL (3.5-5.0); ALBUMIN/GLOBULIN RATIO 0.4 (0.8-2.0); ANION GAP 21.5 mmol/L (8-16); CALCIUM 8.5 mg/dL (8.4-10.2); CREATININE, SERUM 1.65 mg/dL (0.72-1.25)
[2021-05-30] MEDS ORDERED: Vancomycin IV 1 GM in SODIUM CHLORIDE 0.9% 250ML 250 ML IV ONE (05:45)
[2021-05-30] MEDS ORDERED: DOXYCYCLINE 100MG/NS 100ML 100 ML IV SCH (05:45)
[2021-05-30] MEDS ORDERED: CEFEPIME 2 GM in SODIUM CHLORIDE 0.9% 100 ML IV ONE (05:45)
[2021-05-30 05:51] LABS: POTASSIUM 5.5 mmol/L (3.5-5.1)
[2021-05-30 05:54] LABS: COLOR,URINE YELLOW (YELLOW)
[2021-05-30 05:55] LABS: CLARITY,URINE SL CLOUDY (CLEAR); KETONES,URINE NEGATIVE (NEGATIVE); LEUKOCYTE ESTERASE ,URINE SMALL (NEGATIVE); NITRITE,URINE POSITIVE (NEGATIVE); PROTEIN,URINE DIPSTICK NEGATIVE (NEGATIVE); URINE UROBILINOGEN 1 mg/dL (0.2 - 1)
[2021-05-30 06:04] LABS: MAGNESIUM 2.6 MG/DL (1.3-2.1)
[2021-05-30 06:06] LABS: BACTERIA,URINE MODERATE /HPF; EPITHELIAL CELLS,URINE FEW /LPF; TRANSITIONAL EPI CELLS,URINE FEW; WBC,URINE (MAN) >50 /HPF (0-5)
[2021-05-30] MEDS ORDERED: CALCIUM CHLORIDE 10% 1.36 MEQ/ML 10ML SYR IV STA (06:10)
[2021-05-30] MEDS ORDERED: CALCIUM CHLORIDE 13.6 MEQ in SODIUM CHLORIDE 0.9% 100 ML IV ONE (06:30)
[2021-05-30] MEDS ORDERED: SODIUM CHLORIDE 0.9% 100 ML ONE (06:42)
[2021-05-30] MEDS ORDERED: CALCIUM CHLORIDE 10% SYRINGE 10 ML IV ONE (06:45)
[2021-05-30 09:30] VITALS: BP 141/97
[2021-05-30 09:36] VITALS: BP 141/97
[2021-05-30 09:37] VITALS: BP 141/97
[2021-05-30 09:47] LABS: LYMPHOCYTES % (MANUAL) 5 % (19-48); MONOCYTES % (MANUAL) 3 % (3.4-9.0); NEUTROPHILS % (MANUAL) 92 % (40-74); NUCLEATED RED BLOOD CELLS 3
[2021-05-30 09:48] LABS: MICROCYTOSIS SLIGHT; PLATELET ESTIMATE SLIGHTLY DECREASED; PLATELET MORPHOLOGY COMMENT NORMAL; RBC MORPHOLOGY COMMENT NORMAL
[2021-05-30 09:49] LABS: OVALOCYTES FEW
[2021-05-30 10:44] LABS: INR 2.94; PROTHROMBIN TIME 31.1 seconds (11.9-14.5)
[2021-05-30] MEDS ORDERED: NYSTATIN 100,000 UNITS/GM CRM 30GM TUBE TOP PRN (11:15)
[2021-05-30] MEDS ORDERED: HYDROCORTISONE .5% 30 GM TUBE TOP PRN (11:15)
[2021-05-30 12:00] VITALS: BP 104/53
[2021-05-30] MEDS: CEFTRIAXONE 1 GM in SODIUM CHLORIDE 0.9% 50ML 50 ML IV SCH (14:11)
[2021-05-30] MEDS ORDERED: LOPERAMIDE HCL 2 MG CAP PO PRN (15:00)
[2021-05-30 16:09] VITALS: BP 105/51
[2021-05-30 20:00] VITALS: BP 108/47
[2021-05-30] MEDS ORDERED: ACETAMINOPHEN 1000 MG/100 ML IV PRN (20:45)
[2021-05-30] MEDS: DIPHENHYDRAMINE HCL 25 MG CAP PO SCH (21:00)
[2021-05-31] VITALS (8 sets, daily range): BP systolic 90–125; BP diastolic 36–78
[2021-05-31] MEDS ORDERED: FUROSEMIDE 20 MG TAB PO SCH (09:00)
[2021-05-31] MEDS: SERTRALINE HCL 50 MG TAB PO SCH (09:00)
[2021-05-31] MEDS ORDERED: SPIRONOLACTONE 25 MG TAB PO SCH (09:00)
[2021-05-31 09:41] LABS: BASOPHILS % 0.3 % (0.0-1.0); EOSINOPHILS % 0.1 % (0.0-6.0); HEMATOCRIT 26.8 % (38.2-49.6); HEMOGLOBIN 7.6 g/dL (14.0-18.0); LYMPHOCYTES # (AUTO) 0.6 (1.0-3.2); LYMPHOCYTES % 6.1 % (18.0-39.1); MEAN CORPUSCULAR HEMOGLOBIN 17.6 pg (28-32); MEAN CORPUSCULAR HGB CONC 28.4 g/dL (31-35); MEAN CORPUSCULAR VOLUME 62.2 fL (81-99); MONOCYTES # (AUTO) 0.8 (0.2-0.8); MONOCYTES % 7.5 % (4.4-11.3); NEUTROPHILS # (AUTO) 8.7 (2.1-6.9); NEUTROPHILS % 85.3 % (38.7-80.0); PLATELET COUNT 111 x10e3/uL (140-360); RED BLOOD COUNT 4.31 x10e6/uL (4.3-5.7); RED CELL DISTRIBUTION WIDTH 21.1 % (11.7-14.4)
[2021-05-31 10:17] LABS: ANION GAP 18.6 mmol/L (8-16); CALCIUM 7.7 mg/dL (8.4-10.2); CREATININE, SERUM 1.57 mg/dL (0.72-1.25); POTASSIUM 4.6 mmol/L (3.5-5.1)
[2021-05-31 12:22] LABS: HYPOCHROMASIA MODERATE; LYMPHOCYTES % (MANUAL) 7 % (19-48); MICROCYTOSIS SLIGHT; MONOCYTES % (MANUAL) 7 % (3.4-9.0); NEUTROPHILS % (MANUAL) 86 % (40-74); PLATELET MORPHOLOGY COMMENT FEW LARGE; RBC MORPHOLOGY COMMENT NORMAL
[2021-05-31 12:23] LABS: PLATELET ESTIMATE SLIGHTLY DECREASED
[2021-05-31] MEDS: CEFTRIAXONE 1 GM in SODIUM CHLORIDE 0.9% 50ML 50 ML IV SCH (15:20)
[2021-05-31] MEDS ORDERED: MEROPENEM 1 GM VIAL ONE (16:57)
[2021-05-31] MEDS: DEXTROSE 5% 1,000 ML IV SCH (17:01)
[2021-05-31] MEDS: MEROPENEM 1 GM in SODIUM CHLORIDE 0.9% 100 ML IV SCH (17:01)
[2021-05-31] MEDS ORDERED: SODIUM CHLORIDE 0.9% 100 ML ONE (17:05)
[2021-05-31] MEDS: DIPHENHYDRAMINE HCL 25 MG CAP PO SCH (21:00)
[2021-06-01] VITALS (11 sets, daily range): BP systolic 120–140; BP diastolic 54–86
[2021-06-01] MEDS: DEXTROSE 5% 1,000 ML IV SCH ×4 (00:15→23:49)
[2021-06-01 06:25] LABS: BASOPHILS % 0.2 % (0.0-1.0); EOSINOPHILS % 0.4 % (0.0-6.0); HEMATOCRIT 24.7 % (38.2-49.6); HEMOGLOBIN 7.2 g/dL (14.0-18.0); LYMPHOCYTES # (AUTO) 0.7 (1.0-3.2); LYMPHOCYTES % 7.1 % (18.0-39.1); MEAN CORPUSCULAR HEMOGLOBIN 18.3 pg (28-32); MEAN CORPUSCULAR HGB CONC 29.1 g/dL (31-35); MEAN CORPUSCULAR VOLUME 62.8 fL (81-99); MONOCYTES # (AUTO) 0.7 (0.2-0.8); MONOCYTES % 7.8 % (4.4-11.3); NEUTROPHILS # (AUTO) 7.8 (2.1-6.9); PLATELET COUNT 101 x10e3/uL (140-360); RED BLOOD COUNT 3.93 x10e6/uL (4.3-5.7); RED CELL DISTRIBUTION WIDTH 21.2 % (11.7-14.4)
[2021-06-01] MEDS: MEROPENEM 1 GM in SODIUM CHLORIDE 0.9% 100 ML IV SCH ×2 (06:30→18:21)
[2021-06-01 07:38] LABS: LYMPHOCYTES % (MANUAL) 7 % (19-48); MONOCYTES % (MANUAL) 7 % (3.4-9.0); NEUTROPHILS % (MANUAL) 86 % (40-74)
[2021-06-01 07:43] LABS: ANISOCYTOSIS MODERATE; HYPOCHROMASIA MODERATE; MICROCYTOSIS MODERATE; PLATELET ESTIMATE ADEQUATE; POLYCHROMASIA FEW; RBC MORPHOLOGY COMMENT ABNORMAL
[2021-06-01 07:44] LABS: OVALOCYTES FEW
[2021-06-01 07:50] LABS: ANION GAP 14.9 mmol/L (8-16); CREATININE, SERUM 1.05 mg/dL (0.72-1.25); POTASSIUM 3.9 mmol/L (3.5-5.1)
[2021-06-01] MEDS: SERTRALINE HCL 50 MG TAB PO SCH (08:51)
[2021-06-01] MEDS: CEFTRIAXONE 1 GM in SODIUM CHLORIDE 0.9% 50ML 50 ML IV SCH (15:17)
[2021-06-01] MEDS ORDERED: MEROPENEM 1 GM VIAL ONE (18:19)
[2021-06-01] MEDS: DIPHENHYDRAMINE HCL 25 MG CAP PO SCH (21:00)
[2021-06-01] MEDS: ACETAMINOPHEN 650 MG SUPP PR PRN (21:12)
[2021-06-02] VITALS (7 sets, daily range): BP systolic 115–131; BP diastolic 51–71
[2021-06-02] MEDS ORDERED: MEROPENEM 1 GM VIAL ONE ×2 (05:47→15:33)
[2021-06-02] MEDS: MEROPENEM 1 GM in SODIUM CHLORIDE 0.9% 100 ML IV SCH ×2 (05:55→17:07)
[2021-06-02] MEDS: SERTRALINE HCL 50 MG TAB PO SCH (09:00)
[2021-06-02] MEDS: DEXTROSE 5% 1,000 ML IV SCH ×3 (09:59→23:27)
[2021-06-02] MEDS: CEFTRIAXONE 1 GM in SODIUM CHLORIDE 0.9% 50ML 50 ML IV SCH (13:35)
[2021-06-02] MEDS ORDERED: SODIUM CHLORIDE 0.9% 100 ML ONE (16:06)
[2021-06-02 17:13] LABS: ABG HCO3 26 mmol/L (22-26); ABG PCO2 40 mmHg (35-45); ABG PH 7.42 (7.35-7.45); ABG PO2 54 mmHg (80-105); ABG TCO2 27
[2021-06-02] MEDS: DIPHENHYDRAMINE HCL 25 MG CAP PO SCH (20:21)
[2021-06-03] VITALS: BP 119/64
[2021-06-03 04:35] VITALS: BP 139/64
[2021-06-03] MEDS: MEROPENEM 1 GM in SODIUM CHLORIDE 0.9% 100 ML IV SCH ×2 (05:55→17:01)
[2021-06-03] MEDS: SERTRALINE HCL 50 MG TAB PO SCH (07:38)
[2021-06-03 08:00] VITALS: BP 105/57
[2021-06-03 08:03] VITALS: BP 139/64
[2021-06-03 12:00] VITALS: BP 122/63
[2021-06-03] MEDS: DEXTROSE 5% 1,000 ML IV SCH ×2 (12:20→16:15)
[2021-06-03] MEDS: CEFTRIAXONE 1 GM in SODIUM CHLORIDE 0.9% 50ML 50 ML IV SCH (14:23)
[2021-06-03 16:37] VITALS: BP 114/61
[2021-06-03] MEDS ORDERED: DEXTROSE 10% 1,000 ML IV PRN (16:45)
[2021-06-03] MEDS: DIPHENHYDRAMINE HCL 25 MG CAP PO SCH (19:55)
[2021-06-04] VITALS (7 sets, daily range): BP systolic 90–111; BP diastolic 48–63
[2021-06-04 05:12] LABS: BASOPHILS % 0.1 % (0.0-1.0); EOSINOPHILS # (AUTO) 0.1 (0.0-0.4); EOSINOPHILS % 0.7 % (0.0-6.0); LYMPHOCYTES # (AUTO) 0.8 (1.0-3.2); LYMPHOCYTES % 5.2 % (18.0-39.1); MEAN CORPUSCULAR HEMOGLOBIN 18.4 pg (28-32); MEAN CORPUSCULAR VOLUME 65.6 fL (81-99); MONOCYTES # (AUTO) 0.8 (0.2-0.8); MONOCYTES % 5.6 % (4.4-11.3); NEUTROPHILS # (AUTO) 12.7 (2.1-6.9); NEUTROPHILS % 86.2 % (38.7-80.0); PLATELET COUNT 77 x10e3/uL (140-360); RED BLOOD COUNT 3.81 x10e6/uL (4.3-5.7); RED CELL DISTRIBUTION WIDTH 21.5 % (11.7-14.4)
[2021-06-04] MEDS: MEROPENEM 1 GM in SODIUM CHLORIDE 0.9% 100 ML IV SCH ×2 (05:25→17:10)
[2021-06-04 05:36] LABS: ANION GAP 11.1 mmol/L (8-16); CALCIUM 8.5 mg/dL (8.4-10.2); CREATININE, SERUM 0.86 mg/dL (0.72-1.25); POTASSIUM 4.1 mmol/L (3.5-5.1)
[2021-06-04] MEDS: DEXTROSE 5% 1,000 ML IV SCH ×3 (05:54→13:43)
[2021-06-04] MEDS ORDERED: CEFTRIAXONE 1 GM in SODIUM CHLORIDE 0.9% 50ML 50 ML IV SCH (08:45)
[2021-06-04] MEDS: SERTRALINE HCL 50 MG TAB PO SCH (09:00)
[2021-06-04] MEDS: CEFTRIAXONE 1 GM in SODIUM CHLORIDE 0.9% 50ML 50 ML IV SCH ×2 (10:08→21:33)
[2021-06-04] MEDS ORDERED: SODIUM CHLORIDE 0.9% 1000ML 1,000 ML IV SCH (17:30)
[2021-06-04] MEDS ORDERED: CENTRAL TPN FORMULA 1 BAG IV SCH ×2 (20:00)
[2021-06-04] MEDS ORDERED: SODIUM CHLORIDE 0.9% 250ML 250 ML ONE (21:08)
[2021-06-05] VITALS (8 sets, daily range): BP systolic 96–126; BP diastolic 60–68
[2021-06-05] MEDS: DEXTROSE 5% 1,000 ML IV SCH ×2 (00:15→08:15)
[2021-06-05] MEDS: MEROPENEM 1 GM in SODIUM CHLORIDE 0.9% 100 ML IV SCH ×2 (05:57→17:00)
[2021-06-05 07:35] LABS: BASOPHILS % 0.2 % (0.0-1.0); EOSINOPHILS # (AUTO) 0.1 (0.0-0.4); EOSINOPHILS % 0.8 % (0.0-6.0); HEMATOCRIT 25.5 % (38.2-49.6); HEMOGLOBIN 7.1 g/dL (14.0-18.0); LYMPHOCYTES # (AUTO) 0.9 (1.0-3.2); LYMPHOCYTES % 4.6 % (18.0-39.1); MEAN CORPUSCULAR HEMOGLOBIN 18.5 pg (28-32); MEAN CORPUSCULAR HGB CONC 27.8 g/dL (31-35); MEAN CORPUSCULAR VOLUME 66.4 fL (81-99); MONOCYTES # (AUTO) 0.8 (0.2-0.8); MONOCYTES % 4.2 % (4.4-11.3); NEUTROPHILS # (AUTO) 16.5 (2.1-6.9); NEUTROPHILS % 88.6 % (38.7-80.0); PLATELET COUNT 134 x10e3/uL (140-360); RED BLOOD COUNT 3.84 x10e6/uL (4.3-5.7); RED CELL DISTRIBUTION WIDTH 22.5 % (11.7-14.4)
[2021-06-05 08:05] LABS: ALBUMIN/GLOBULIN RATIO 0.4 (0.8-2.0); ANION GAP 14.3 mmol/L (8-16); CALCIUM 8.4 mg/dL (8.4-10.2); POTASSIUM 4.3 mmol/L (3.5-5.1)
[2021-06-05 08:21] LABS: ANISOCYTOSIS MODERATE; HYPOCHROMASIA MODERATE; MICROCYTOSIS MARKED; OVALOCYTES FEW; PLATELET ESTIMATE SLIGHTLY DECREASED; PLATELET MORPHOLOGY COMMENT NORMAL; RBC MORPHOLOGY COMMENT ABNORMAL
[2021-06-05] MEDS: SERTRALINE HCL 50 MG TAB PO SCH (08:26)
[2021-06-05 08:40] LABS: CREATININE, SERUM 0.87 mg/dL (0.72-1.25)
[2021-06-05] MEDS: CEFTRIAXONE 1 GM in SODIUM CHLORIDE 0.9% 50ML 50 ML IV SCH ×2 (09:19→20:30)
[2021-06-05] MEDS: CENTRAL TPN FORMULA 1 BAG IV SCH (20:30)
[2021-06-06] VITALS (9 sets, daily range): BP systolic 95–129; BP diastolic 54–78
[2021-06-06] MEDS: ACETAMINOPHEN 650 MG SUPP PR PRN (03:00)
[2021-06-06] MEDS: MEROPENEM 1 GM in SODIUM CHLORIDE 0.9% 100 ML IV SCH ×2 (05:20→16:45)
[2021-06-06] MEDS: SERTRALINE HCL 50 MG TAB PO SCH (08:55)
[2021-06-06] MEDS: CEFTRIAXONE 1 GM in SODIUM CHLORIDE 0.9% 50ML 50 ML IV SCH ×2 (09:14→22:00)
[2021-06-07] VITALS (8 sets, daily range): BP systolic 98–112; BP diastolic 65–72
[2021-06-07] MEDS: CENTRAL TPN FORMULA 1 BAG IV SCH (01:35)
[2021-06-07] MEDS: MEROPENEM 1 GM in SODIUM CHLORIDE 0.9% 100 ML IV SCH ×2 (05:45→18:08)
[2021-06-07] MEDS: SERTRALINE HCL 50 MG TAB PO SCH (08:23)
[2021-06-07] MEDS: CEFTRIAXONE 1 GM in SODIUM CHLORIDE 0.9% 50ML 50 ML IV SCH (09:00)
[2021-06-07 09:24] LABS: BASOPHILS # (AUTO) 0.1 (0.0-0.1); BASOPHILS % 0.3 % (0.0-1.0); EOSINOPHILS # (AUTO) 0.1 (0.0-0.4); EOSINOPHILS % 0.4 % (0.0-6.0); HEMATOCRIT 29.2 % (38.2-49.6); LYMPHOCYTES # (AUTO) 0.7 (1.0-3.2); LYMPHOCYTES % 2.8 % (18.0-39.1); MEAN CORPUSCULAR HEMOGLOBIN 18.2 pg (28-32); MEAN CORPUSCULAR HGB CONC 27.4 g/dL (31-35); MEAN CORPUSCULAR VOLUME 66.5 fL (81-99); MONOCYTES # (AUTO) 0.9 (0.2-0.8); MONOCYTES % 3.5 % (4.4-11.3); NEUTROPHILS # (AUTO) 23.3 (2.1-6.9); PLATELET COUNT 277 x10e3/uL (140-360); RED BLOOD COUNT 4.39 x10e6/uL (4.3-5.7); RED CELL DISTRIBUTION WIDTH 23.9 % (11.7-14.4)
[2021-06-07 10:03] LABS: ALBUMIN 1.9 g/dL (3.5-5.0); ALBUMIN/GLOBULIN RATIO 0.4 (0.8-2.0); ANION GAP 16.3 mmol/L (8-16); CALCIUM 8.1 mg/dL (8.4-10.2); CREATININE, SERUM 1.09 mg/dL (0.72-1.25); POTASSIUM 5.3 mmol/L (3.5-5.1)
== END 2021-06-07 00:09 | disposition expired | DRG 871 ==
LOC: ER 04:56 → ERHOLD 07:18 → IMCU 09:07 → ERHOLD 09:07 → IMCU 09:31
PROC: 02HV33Z Insertion of Infusion Device into Superior Vena Cava, Percutaneous Approach (ICD-10-PCS; principal; 2021-05-31)
DX: A41.51 Sepsis due to Escherichia coli [E. coli] (principal); G93.41 Metabolic encephalopathy; I50.33 Acute on chronic diastolic (congestive) heart failure; J69.0 Pneumonitis due to inhalation of food and vomit; J96.01 Acute respiratory failure with hypoxia; J15.6 Pneumonia due to other Gram-negative bacteria; N39.0 Urinary tract infection, site not specified; Z68.42 Body mass index [BMI] 45.0-49.9, adult; N17.9 Acute kidney failure, unspecified; D62 Acute posthemorrhagic anemia; R65.20 Severe sepsis without septic shock; E11.9 Type 2 diabetes mellitus without complications; Z66 Do not resuscitate; I11.0 Hypertensive heart disease with heart failure; D69.6 Thrombocytopenia, unspecified; Z86.711 Personal history of pulmonary embolism; Z79.01 Long term (current) use of anticoagulants; Z85.038 Personal history of other malignant neoplasm of large intestine
CPT/HCPCS: 36415; 36569; 36600; 70450; 71045; 80048; 80053; 81001; 82140; 82805; 82948; 83605; 83735; 83880; 84439; 84443; 84481; 84484; 85025; 85610; 87040; 87086; 87186; 93005; 94660; 99251; 99283; 99285; J0696; J2185; J3370; J3430; J7030; J7040; J7050; J7070; U0002